=== PATIENT | female | born 1955 | race Caucasian/White ===

== ENCOUNTER 2023-05-25 15:05 | Outpatient (RCR) | payer MEDICARE, SELFPAY | END 2023-05-25 23:59 | disposition home or self-care (01) | LOC: RPT 15:05 | PROVIDERS: ATTENDING PHYSICIAN Physical Medicine & Rehabilitation | DX: M53.3 Sacrococcygeal disorders, not elsewhere classified (principal); M54.16 Radiculopathy, lumbar region; M48.061 Spinal stenosis, lumbar region without neurogenic claudication; M47.816 Spondylosis without myelopathy or radiculopathy, lumbar region; Z73.6 Limitation of activities due to disability; R26.2 Difficulty in walking, not elsewhere classified; M62.81 Muscle weakness (generalized) | CPT/HCPCS: 97110 ==

== ENCOUNTER → 2023-05-26 13:43 | Outpatient (REF) | payer MEDICARE, SELFPAY ==
[2023-05-26 14:35] LABS: % Basophils 0.7 % (0-2); % Eosinophils 0.7 % (0-6); % Immature Granulocytes 0.3 % (0-0.5); % Lymphocytes 18.2 % (20.5-51.1); % Monocytes 5.1 % (1.7-9.3); Absolute Basophils 0.1 10^3/uL (0-0.2); Absolute Eosinophils 0.1 10^3/uL (0-0.7); Absolute Lymphocytes 1.2 10^3/uL (1.2-3.4); Absolute Monocytes 0.3 10^3/uL (0.1-0.6); Hematocrit 32.2 % (37.0-47.0); Hemoglobin 10.8 g/dL (12.0-16.0); Mean Corp Hgb Conc. 33.5 g/dL (33.0-37.0); Mean Corpuscular Hgb 31.1 pg (27.0-31.0); Mean Corpuscular Volume 92.8 fL (81.0-99.0); Mean Platelet Volume 11.1 fL (7.4-10.4); Nucleated Red Blood Cells % 0 %; Platelet Count 245 10^3/uL (130-400); Red Blood Cell Count 3.47 10^6/uL (4.20-5.40); Red Cell Dist. Width 14.5 % (11.5-14.5); White Blood Cell Count 6.7 10^3/uL (4.8-10.8)
[2023-05-26 15:08] LABS: ALT (SGPT) 26 U/L (0-35); AST (SGOT) 18 U/L (14-36); Albumin 3.5 g/dl (3.5-5.0); Alkaline Phosphatase 74 U/L (38-126); Blood Urea Nitrogen 15 mg/dl (7-17); Calcium 8.7 mg/dl (8.4-10.2); Carbon Dioxide 29 mmol/L (22-30); Chloride 97 mmol/L (98-107); Glucose 96 mg/dl (70-99); Potassium 3.8 mmol/L (3.5-5.1); Sodium 133 mmol/L (135-145); Total Bilirubin 0.7 mg/dl (0.2-1.3); Total Protein 5.7 g/dl (6.3-8.2); eGFR > 60.00
== END ==
LOC: REG 13:43
PROVIDERS: ATTENDING PHYSICIAN Internal Medicine Hematology & Oncology; FAMILY PHYSICIAN Family Medicine
DX: C50.811 Malignant neoplasm of overlapping sites of right female breast (principal); C79.89 Secondary malignant neoplasm of other specified sites; G89.3 Neoplasm related pain (acute) (chronic)
CPT/HCPCS: 36415; 80053; 85025

== ENCOUNTER → 2023-05-28 13:55 | Outpatient (REF) | payer MEDICARE, SELFPAY ==
[2023-05-28 15:41] LABS: Iron 37 ug/dl (37-170)
[2023-05-28 15:50] LABS: Percent Saturation 12 % (20-50); Total Iron Binding Capacity 306 ug/dl (265-497)
[2023-05-28 16:18] LABS: Ferritin 61.1 ng/ml (11.1-264.0)
== END ==
LOC: OIDL 13:55
PROVIDERS: ATTENDING PHYSICIAN Internal Medicine Hematology & Oncology
DX: C50.811 Malignant neoplasm of overlapping sites of right female breast (principal)
CPT/HCPCS: 82728; 83540; 83550

== ENCOUNTER → 2023-06-02 11:24 | Outpatient (REF) | payer MEDICARE, SELFPAY ==
[2023-06-02 12:28] LABS: Hematocrit 30.2 % (37.0-47.0); Hemoglobin 9.9 g/dL (12.0-16.0); Mean Corp Hgb Conc. 32.8 g/dL (33.0-37.0); Mean Corpuscular Hgb 31.8 pg (27.0-31.0); Mean Corpuscular Volume 97.1 fL (81.0-99.0); Mean Platelet Volume 11.3 fL (7.4-10.4); Nucleated Red Blood Cells % 0 %; Platelet Count 230 10^3/uL (130-400); Red Blood Cell Count 3.11 10^6/uL (4.20-5.40); Red Cell Dist. Width 14.7 % (11.5-14.5); White Blood Cell Count 21.1 10^3/uL (4.8-10.8)
[2023-06-02 13:13] LABS: ALT (SGPT) 17 U/L (0-35); AST (SGOT) 15 U/L (14-36); Albumin 3.5 g/dl (3.5-5.0); Alkaline Phosphatase 101 U/L (38-126); Blood Urea Nitrogen 12 mg/dl (7-17); Calcium 8.4 mg/dl (8.4-10.2); Carbon Dioxide 24 mmol/L (22-30); Chloride 103 mmol/L (98-107); Glucose 121 mg/dl (70-99); Potassium 3.7 mmol/L (3.5-5.1); Sodium 134 mmol/L (135-145); Total Bilirubin 0.6 mg/dl (0.2-1.3); Total Protein 5.6 g/dl (6.3-8.2); eGFR > 60.00
[2023-06-02 13:51] LABS: Band Neutrophils 16 % (0-3); Lymphocytes 4 % (20-51); Monocytes 1 % (2-9); Normal RBC Morphology Yes; Platelets Checked Yes; Segmented Neutrophils 79 % (42-75); Total Cells Counted 100
[2023-06-02 13:59] LABS: Toxic Granulation Moderate
== END ==
LOC: REG 11:24
PROVIDERS: ATTENDING PHYSICIAN Internal Medicine Hematology & Oncology; FAMILY PHYSICIAN Family Medicine
DX: C50.811 Malignant neoplasm of overlapping sites of right female breast (principal); C79.89 Secondary malignant neoplasm of other specified sites; G89.3 Neoplasm related pain (acute) (chronic)
CPT/HCPCS: 36415; 80053; 85025

== ENCOUNTER → 2023-06-10 15:26 | Outpatient (REF) | payer MEDICARE, SELFPAY ==
[2023-06-10 11:15] LABS: % Basophils 0.8 % (0-2); % Eosinophils 0.9 % (0-6); % Immature Granulocytes 0.3 % (0-0.5); % Lymphocytes 10.8 % (20.5-51.1); % Monocytes 6.5 % (1.7-9.3); % Neutrophils 80.7 % (42.2-75.2); Absolute Basophils 0.1 10^3/uL (0-0.2); Absolute Eosinophils 0.1 10^3/uL (0-0.7); Absolute Lymphocytes 0.7 10^3/uL (1.2-3.4); Absolute Monocytes 0.4 10^3/uL (0.1-0.6); Absolute Neutrophils 5.4 10^3/uL (1.4-6.5); Hemoglobin 11.1 g/dL (12.0-16.0); Mean Corp Hgb Conc. 32.6 g/dL (33.0-37.0); Mean Corpuscular Hgb 31.4 pg (27.0-31.0); Mean Corpuscular Volume 96.3 fL (81.0-99.0); Mean Platelet Volume 10.9 fL (7.4-10.4); Platelet Count 196 10^3/uL (130-400); Red Blood Cell Count 3.53 10^6/uL (4.20-5.40); Red Cell Dist. Width 14.9 % (11.5-14.5); White Blood Cell Count 6.7 10^3/uL (4.8-10.8)
[2023-06-10 11:59] LABS: ALT (SGPT) 16 U/L (0-35); AST (SGOT) 16 U/L (14-36); Albumin 3.7 g/dl (3.5-5.0); Alkaline Phosphatase 103 U/L (38-126); Blood Urea Nitrogen 8 mg/dl (7-17); Calcium 8.7 mg/dl (8.4-10.2); Carbon Dioxide 26 mmol/L (22-30); Chloride 103 mmol/L (98-107); Glucose 123 mg/dl (70-99); Sodium 134 mmol/L (135-145); Total Bilirubin 0.6 mg/dl (0.2-1.3); Total Protein 5.8 g/dl (6.3-8.2); eGFR > 60.00
[2023-06-11 10:53] LABS: Vitamin D, 25-OH*** 59.4 ng/mL (30-80)
== END ==
LOC: OIDL 15:26
PROVIDERS: ATTENDING PHYSICIAN Nurse Practitioner Adult Health
DX: C50.811 Malignant neoplasm of overlapping sites of right female breast (principal)
CPT/HCPCS: 80053; 82306; 85025

== ENCOUNTER → 2023-06-15 13:46 | Outpatient (REF) | payer MEDICARE, SELFPAY ==
[2023-06-15 14:35] LABS: % Basophils 0.6 % (0-2); % Eosinophils 1.5 % (0-6); % Immature Granulocytes 0.2 % (0-0.5); % Lymphocytes 16.1 % (20.5-51.1); % Monocytes 4.3 % (1.7-9.3); % Neutrophils 77.3 % (42.2-75.2); Absolute Eosinophils 0.1 10^3/uL (0-0.7); Absolute Lymphocytes 0.9 10^3/uL (1.2-3.4); Absolute Monocytes 0.2 10^3/uL (0.1-0.6); Absolute Neutrophils 4.1 10^3/uL (1.4-6.5); Hematocrit 31.9 % (37.0-47.0); Hemoglobin 10.7 g/dL (12.0-16.0); Mean Corp Hgb Conc. 33.5 g/dL (33.0-37.0); Mean Corpuscular Hgb 31.3 pg (27.0-31.0); Mean Corpuscular Volume 93.3 fL (81.0-99.0); Mean Platelet Volume 10.9 fL (7.4-10.4); Nucleated Red Blood Cells % 0 %; Platelet Count 199 10^3/uL (130-400); Red Blood Cell Count 3.42 10^6/uL (4.20-5.40); Red Cell Dist. Width 14.6 % (11.5-14.5); White Blood Cell Count 5.3 10^3/uL (4.8-10.8)
[2023-06-15 14:55] LABS: ALT (SGPT) 15 U/L (0-35); AST (SGOT) 14 U/L (14-36); Albumin 3.4 g/dl (3.5-5.0); Alkaline Phosphatase 73 U/L (38-126); Blood Urea Nitrogen 15 mg/dl (7-17); Calcium 8.9 mg/dl (8.4-10.2); Carbon Dioxide 29 mmol/L (22-30); Chloride 98 mmol/L (98-107); Glucose 133 mg/dl (70-99); Potassium 3.7 mmol/L (3.5-5.1); Sodium 135 mmol/L (135-145); Total Bilirubin 0.6 mg/dl (0.2-1.3); Total Protein 5.5 g/dl (6.3-8.2); eGFR > 60.00
== END ==
LOC: REG 13:46
PROVIDERS: ATTENDING PHYSICIAN Internal Medicine Hematology & Oncology
DX: C50.811 Malignant neoplasm of overlapping sites of right female breast (principal); C79.89 Secondary malignant neoplasm of other specified sites; G89.3 Neoplasm related pain (acute) (chronic)
CPT/HCPCS: 36415; 80053; 85025

== ENCOUNTER 2023-06-18 15:43 | Outpatient (RCR) | payer MEDICARE, SELFPAY ==
[2023-06-18 08:44] LABS: % Eosinophils 1.6 % (0-6); % Immature Granulocytes 0.5 % (0-0.5); % Monocytes 14.1 % (1.7-9.3); % Neutrophils 64.8 % (42.2-75.2); Absolute Eosinophils 0.1 10^3/uL (0-0.7); Absolute Lymphocytes 0.7 10^3/uL (1.2-3.4); Absolute Monocytes 0.5 10^3/uL (0.1-0.6); Absolute Neutrophils 2.5 10^3/uL (1.4-6.5); Hematocrit 30.5 % (37.0-47.0); Hemoglobin 10.3 g/dL (12.0-16.0); Mean Corp Hgb Conc. 33.8 g/dL (33.0-37.0); Mean Corpuscular Hgb 31.6 pg (27.0-31.0); Mean Corpuscular Volume 93.6 fL (81.0-99.0); Mean Platelet Volume 11.1 fL (7.4-10.4); Nucleated Red Blood Cells % 0 %; Platelet Count 227 10^3/uL (130-400); Red Blood Cell Count 3.26 10^6/uL (4.20-5.40); Red Cell Dist. Width 14.6 % (11.5-14.5); White Blood Cell Count 3.8 10^3/uL (4.8-10.8)
[2023-06-18 09:38] LABS: Iron 70 ug/dl (37-170); Phosphorus 3.9 mg/dl (2.5-4.5)
[2023-06-18 09:47] LABS: Percent Saturation 23 % (20-50); Total Iron Binding Capacity 298 ug/dl (265-497)
== END 2023-06-24 23:59 | disposition home or self-care (01) ==
LOC: OID 15:43
PROVIDERS: ATTENDING PHYSICIAN Nurse Practitioner Adult Health
DX: C50.811 Malignant neoplasm of overlapping sites of right female breast (principal)
CPT/HCPCS: 82728; 83540; 83550; 84100; 85025

== ENCOUNTER → 2023-06-23 14:31 | Outpatient (REF) | payer MEDICARE, SELFPAY ==
[2023-06-23 15:19] LABS: Hematocrit 32.2 % (37.0-47.0); Hemoglobin 10.6 g/dL (12.0-16.0); Mean Corp Hgb Conc. 32.9 g/dL (33.0-37.0); Mean Corpuscular Hgb 31.5 pg (27.0-31.0); Mean Corpuscular Volume 95.8 fL (81.0-99.0); Mean Platelet Volume 11.1 fL (7.4-10.4); Nucleated Red Blood Cells % 0 %; Platelet Count 224 10^3/uL (130-400); Red Blood Cell Count 3.36 10^6/uL (4.20-5.40); White Blood Cell Count 21.8 10^3/uL (4.8-10.8)
[2023-06-23 15:34] LABS: ALT (SGPT) 16 U/L (0-35); AST (SGOT) 15 U/L (14-36); Albumin 3.5 g/dl (3.5-5.0); Alkaline Phosphatase 95 U/L (38-126); Blood Urea Nitrogen 10 mg/dl (7-17); Calcium 8.8 mg/dl (8.4-10.2); Carbon Dioxide 27 mmol/L (22-30); Chloride 100 mmol/L (98-107); Glucose 122 mg/dl (70-99); Potassium 3.5 mmol/L (3.5-5.1); Sodium 137 mmol/L (135-145); Total Bilirubin 0.6 mg/dl (0.2-1.3); Total Protein 5.9 g/dl (6.3-8.2); eGFR > 60.00
[2023-06-23 16:07] LABS: Absolute Neutrophils -Man Diff 18.9 10^3/uL (1.4-6.5); Band Neutrophils 3 % (0-3); Lymphocytes 5 % (20-51); Metamyelocytes 2 % (-); Monocytes 5 % (2-9); Myelocytes 1 % (-); Segmented Neutrophils 84 % (42-75)
[2023-06-23 16:08] LABS: Platelets Checked Yes
[2023-06-23 16:09] LABS: Normal RBC Morphology Yes; Total Cells Counted 100
== END ==
LOC: REG 14:31
PROVIDERS: ATTENDING PHYSICIAN Internal Medicine Hematology & Oncology; FAMILY PHYSICIAN Family Medicine
DX: C79.89 Secondary malignant neoplasm of other specified sites (principal); G89.3 Neoplasm related pain (acute) (chronic); C50.811 Malignant neoplasm of overlapping sites of right female breast
CPT/HCPCS: 36415; 80053; 85025

== ENCOUNTER → 2023-06-23 15:52 | Outpatient (REF) | payer MEDICARE, SELFPAY | LOC: PAVMRI 15:52 | PROVIDERS: ATTENDING PHYSICIAN Physical Medicine & Rehabilitation; FAMILY PHYSICIAN Family Medicine | DX: M54.16 Radiculopathy, lumbar region (principal) | CPT/HCPCS: 72148 ==

== ENCOUNTER 2023-06-29 10:46 | Outpatient (RCR) | payer MEDICARE, SELFPAY ==
[2023-06-29 10:06] LABS: % Basophils 0.3 % (0-2); % Eosinophils 0.4 % (0-6); % Immature Granulocytes 0.7 % (0-0.5); % Monocytes 8.3 % (1.7-9.3); % Neutrophils 82.3 % (42.2-75.2); Absolute Immature Granulocytes 0.1 10^3/uL (0-0.05); Absolute Lymphocytes 0.9 10^3/uL (1.2-3.4); Absolute Monocytes 0.9 10^3/uL (0.1-0.6); Absolute Neutrophils 8.9 10^3/uL (1.4-6.5); Hematocrit 32.1 % (37.0-47.0); Hemoglobin 10.5 g/dL (12.0-16.0); Mean Corp Hgb Conc. 32.7 g/dL (33.0-37.0); Mean Corpuscular Volume 97.9 fL (81.0-99.0); Mean Platelet Volume 10.6 fL (7.4-10.4); Platelet Count 172 10^3/uL (130-400); Red Blood Cell Count 3.28 10^6/uL (4.20-5.40); Red Cell Dist. Width 15.8 % (11.5-14.5); White Blood Cell Count 10.8 10^3/uL (4.8-10.8)
[2023-06-29 11:09] LABS: ALT (SGPT) 19 U/L (0-35); AST (SGOT) 16 U/L (14-36); Albumin 3.5 g/dl (3.5-5.0); Alkaline Phosphatase 110 U/L (38-126); Blood Urea Nitrogen 9 mg/dl (7-17); Calcium 8.5 mg/dl (8.4-10.2); Carbon Dioxide 28 mmol/L (22-30); Chloride 101 mmol/L (98-107); Glucose 123 mg/dl (70-99); Potassium 3.8 mmol/L (3.5-5.1); Sodium 133 mmol/L (135-145); Total Bilirubin 0.4 mg/dl (0.2-1.3); Total Protein 5.6 g/dl (6.3-8.2); eGFR > 60.00
== END 2023-07-25 23:59 | disposition home or self-care (01) ==
LOC: OID 10:46
PROVIDERS: ATTENDING PHYSICIAN Nurse Practitioner Adult Health
DX: C50.811 Malignant neoplasm of overlapping sites of right female breast (principal)
CPT/HCPCS: 80053; 85025

== ENCOUNTER → 2023-07-07 13:43 | Outpatient (REF) | payer MEDICARE, SELFPAY ==
[2023-07-07 14:26] LABS: % Basophils 0.6 % (0-2); % Eosinophils 1.6 % (0-6); % Immature Granulocytes 0.4 % (0-0.5); % Lymphocytes 15.9 % (20.5-51.1); % Monocytes 4.7 % (1.7-9.3); % Neutrophils 76.8 % (42.2-75.2); Absolute Eosinophils 0.1 10^3/uL (0-0.7); Absolute Lymphocytes 0.8 10^3/uL (1.2-3.4); Absolute Monocytes 0.2 10^3/uL (0.1-0.6); Hemoglobin 10.7 g/dL (12.0-16.0); Mean Corp Hgb Conc. 33.4 g/dL (33.0-37.0); Mean Corpuscular Hgb 31.7 pg (27.0-31.0); Mean Corpuscular Volume 94.7 fL (81.0-99.0); Mean Platelet Volume 10.9 fL (7.4-10.4); Nucleated Red Blood Cells % 0 %; Platelet Count 195 10^3/uL (130-400); Red Blood Cell Count 3.38 10^6/uL (4.20-5.40); Red Cell Dist. Width 15.7 % (11.5-14.5); White Blood Cell Count 5.2 10^3/uL (4.8-10.8)
[2023-07-07 14:38] LABS: ALT (SGPT) 16 U/L (0-35); AST (SGOT) 16 U/L (14-36); Albumin 3.7 g/dl (3.5-5.0); Alkaline Phosphatase 77 U/L (38-126); Blood Urea Nitrogen 12 mg/dl (7-17); Calcium 8.4 mg/dl (8.4-10.2); Carbon Dioxide 27 mmol/L (22-30); Chloride 104 mmol/L (98-107); Glucose 131 mg/dl (70-99); Potassium 3.9 mmol/L (3.5-5.1); Sodium 135 mmol/L (135-145); Total Bilirubin 0.6 mg/dl (0.2-1.3); Total Protein 5.8 g/dl (6.3-8.2); eGFR > 60.00
== END ==
LOC: REG 13:43
PROVIDERS: ATTENDING PHYSICIAN Internal Medicine Hematology & Oncology; FAMILY PHYSICIAN Family Medicine
DX: C50.811 Malignant neoplasm of overlapping sites of right female breast (principal); C79.89 Secondary malignant neoplasm of other specified sites; G89.3 Neoplasm related pain (acute) (chronic)
CPT/HCPCS: 36415; 80053; 85025

== ENCOUNTER 2023-07-09 18:39 | Emergency (ER) | payer MEDICARE, SELFPAY ==
[2023-07-09 18:47] VITALS: BP 179/97
[2023-07-09 21:33] LABS: Glucose - Point of Care 172 mg/dl (70-99)
[2023-07-09 21:34] VITALS: BP 169/87
[2023-07-09 22:00] VITALS: BP 160/87
[2023-07-09 22:06] VITALS: BMI 32.6
--- NOTE | 2023-07-09 22:22 | ED.GENMED ---
History of Present Illness
General
Chief Complaint: Blood Pressure Problem
Source: patient
Time Seen by Provider: 07/09/23 21:27
Travel History
Have you had any contact with someone who has COVID-19?: No
Do you have any symptoms of coronavirus? Fever > 100 degrees, chills, cough, shortness of breath, sore throat, loss of taste or smell, muscle aches, or headache?: No
History of Present Illness
History of Present Illness:
67-year-old female with past medical history of hypertension and hyperlipidemia, GERD, diabetes, currently being treated for breast cancer with chemotherapy (last treatment was earlier today) stating that few hours after getting chemo she started to
feel very jittery, headache, chest discomfort and stiffness in her bilateral upper and lower extremities. Patient was concerned because her blood pressure was a little bit elevated at chemotherapy today and when she took her blood pressure at home
it was still elevated with a systolic measurement of 160. Patient states symptoms seem to have improved since arrival to the emergency department but she still feels some shaky. Patient denies any fevers, chills, rigors, nausea, vomiting, change
in oral intake or any other concerns.
Past History
Past History
ED Past Medical History: Cancer, GERD, HTN, Hypercholesterolemia and IDDM
ED Past Surgical History: Cholecystectomy, Orthopedic and Other
Social History
Tobacco: Non-smoker
Alcohol: None
Drug: None
Personal: Single
Living: with family
Review of Systems
Review of Systems
All Other Systems: ROS reviewed and negative except as documented in HPI and ROS
Phy Exam
Physical Exam
Physical Exam:
GENERAL: Alert , in no apparent distress, somewhat anxious
EYE: clear conjunctiva b/l
HEAD: NCAT
ENT: o/p clr, mmm.
CARDIAC: Regular rate and rhythm .
LUNGS: Clear breath sounds bilaterally, no acute respiratory distress, no wheezes/rales/rhonchi
ABDOMEN: Soft, without focal tenderness, no r/g, no cvat
NEUROLOGICAL: Alert and oriented
SKIN: Warm and dry, skin intact.
MUSCULOSKELETAL: No edema, well perfused.
PSYCH: Normal and appropriate interaction.
Scores
Heart Failure Risk
Heart Failure Risk Score: Not Applicable
Heart Score for Chest Pain Patients
STEMI patient?: Not applicable
Withdrawal Assessment of Alcohol
Withdrawal Assessment Completed?: Not applicable
Course
Orders/Labs/Results
Orders:
Orders
07/09/23 18:50
Electrocardiogram (*1) Urgent
Reason for Study: Hypertension, Benign
CT Head W/o Iv Contrast Urgent
Comment:
Reason For Exam: headache
EKG- Treatment ONCE
07/09/23 22:16
Complete Blood Count/With Diff Urgent
Comprehensive Metabolic Panel Urgent
Troponin I Urgent
Abnormal Lab Results
07/09/23 07/09/23
21:32 22:16
WBC 2.8 L 10^3/uL
(4.8-10.8)
RBC 3.36 L 10^6/uL
(4.20-5.40)
Hgb 10.6 L g/dL
(12.0-16.0)
Hct 31.2 L %
(37.0-47.0)
MCH 31.5 H pg
(27.0-31.0)
RDW 15.0 H %
(11.5-14.5)
MPV 10.6 H fL
(7.4-10.4)
Absolute Lymphs (auto) 0.3 L 10^3/uL
(1.2-3.4)
Absolute Monos (auto) 0.0 L 10^3/uL
(0.1-0.6)
Immature Gran % 1.1 H %
(0-0.5)
Neutrophils % 86.1 H %
(42.2-75.2)
Lymphocytes % 11.3 L %
(20.5-51.1)
Monocytes % 1.1 L %
(1.7-9.3)
Sodium 132 L mmol/L
(135-145)
Creatinine 0.4 L mg/dL
(0.6-1.0)
Glucose 184 H mg/dl
(70-99)
Total Protein 6.2 L g/dl
(6.3-8.2)
POC Glucose 172 H mg/dl
(70-99)
07/09/23 22:16
07/09/23 22:16
Vital Signs
Initial and Last Documented VS:
Initial Vital Signs
Temp Pulse Resp BP Pulse Ox
98.1 F 92 20 179/97 99
07/09/23 18:47 07/09/23 18:47 07/09/23 18:47 07/09/23 18:47 07/09/23 18:47
Last Documented Vital Signs
Temp Pulse Resp BP Pulse Ox
98.1 F 73 15 160/87 97
07/09/23 18:47 07/09/23 22:00 07/09/23 22:00 07/09/23 22:00 07/09/23 22:08
MDM/Problems Addressed
Differential Diagnosis Includes:
Chemotherapy side effect, electrolyte disturbance, anxiety, patient not exhibiting any signs of infectious etiology
MDM/Problems Addressed:
67-year-old female presenting to the emergency department for evaluation after she noticed her blood pressure was slightly more elevated than usual today. On arrival to the emergency department patient still has a mildly elevated blood pressure
however I am less suspicious for an malignant hypertension. Will check labs, CT of the head, EKG. Ultimately I suspect patient's workup will be unremarkable and she can continue her management as an outpatient. Patient will follow-up with her
primary care physician who mostly manages her blood pressure. She also follows with expediter service order, Dr. Fu.
*Radiology
Radiology exam reviewed: radiology read reviewed
*Pulse Oximetry
Patient hypoxic: no
*EKG
Comparison EKG: no comparison EKG present
Heart Rate: 76
Rate: normal
Rhythm: sinus arrhythmia
[place]: normal axis
Ischemia: no ischemia
*Rope Cleaner Interpretation
Rate: normal
Rhythm: sinus
*Critical Care Note
Total Time (30-74mins, 75-104mins- exclusive of procedures): Not Applicable
Patient Management
Escalation/DeEscalation of care consider admission/obs:
Patient's labs all unremarkable. Her leukopenia is expected given her recent chemotherapy today. I counseled patient to try and monitor her blood pressure twice daily and keep a log of this. She will contact her primary care physician on Wednesday
for a follow-up visit. Aware of return precautions to the emergency department.
ED Attending Note
-
Portions of this chart may have been created with voice recognition software.� Occasional wrong word or��sound alike� substitutions may have occurred due to the inherent limitations of voice recognition software.
Discharge Plan
Departure
Patient Disposition: Home (Routine Discharge)
Date of Disposition: 07/09/23
Time of Disposition: 22:49
Patient with high blood pressure during this ER visit?: Yes
Discharge Problem:
Elevated blood pressure reading
Instructions: High Blood Pressure (DC)
Prescriptions:
No Action
latanoprost 0.005 % Drops
1 drp OPHTHALMIC (EYE) DAILY
Rx Instructions:
both eyes
metformin 500 mg Tablet
500 mg PO BID
atorvastatin 20 mg Tablet
20 mg PO DAILY
carvedilol 12.5 mg Tablet
12.5 mg PO BID
lamotrigine 200 mg Tablet
200 mg PO BID
famotidine 40 mg Tablet
40 mg PO BID
valsartan 80 mg Tablet
80 mg PO DAILY
allopurinol 100 mg Tablet
100 mg PO DAILY
aspirin 81 mg Tablet,Delayed Release (Dr/Ec)
81 mg PO DAILY
ondansetron 8 mg Tablet,Disintegrating
8 mg PO Q8H PRN (Reason: nausea)
trazodone 100 mg Tablet
100 mg PO HS
benzonatate 100 mg Capsule
100 mg PO TID PRN (Reason: dry cough)
pantoprazole 40 mg Tablet,Delayed Release (Dr/Ec)
40 mg PO BID
montelukast 10 mg Tablet
10 mg PO HS
estradiol 0.01 % (0.1 mg/gram) Cream
1 g VAGINAL QWEEK
Neulasta 6 mg/0.6 mL Syringe
6 mg SC ONCE
Rx Instructions:
Wednesday after chemo
aripiprazole [Abilify] 20 mg Tablet
20 mg PO HS
duloxetine 60 mg Capsule,Delayed Release(Dr/Ec)
60 mg PO BID
Centrum Silver 0.4 mg-300 mcg- 250 mcg Tablet
1 tab PO DAILY
pregabalin 75 mg Capsule
75 mg PO BID
cholecalciferol (vitamin D3) [Vitamin D3] 25 mcg (1,000 unit) Tablet
25 mcg PO DAILY
melatonin 10 mg Tablet
10 mg PO HS
sacituzumab govitecan-hziy 180 mg Recon Soln
180 mg IV
Rx Instructions:
Fridays for 2 weeks then off 1 week
Referrals:
Delroy Lowe Jr., [Family Provider] -
Interventions
Interventions:
*Risk Screen - Suicide Last Done: 07/09/23 18:47
*General Assessment Last Done: 07/09/23 18:47
*Neglect/Abuse Screening Last Done: 07/09/23 22:07
ED- Fall Risk Assessment Last Done: 07/09/23 22:08
*ED COVID-19 Vaccine History Last Done: 07/09/23 22:07
ED- Cardiac Assessment Last Done: 07/09/23 22:08
ED- Neurological Assessment Last Done: 07/09/23 22:08
ED- Pulmonary Assessment Last Done: 07/09/23 22:08
[2023-07-09 22:24] LABS: % Basophils 0.4 % (0-2); % Immature Granulocytes 1.1 % (0-0.5); % Lymphocytes 11.3 % (20.5-51.1); % Monocytes 1.1 % (1.7-9.3); % Neutrophils 86.1 % (42.2-75.2); Absolute Lymphocytes 0.3 10^3/uL (1.2-3.4); Absolute Neutrophils 2.4 10^3/uL (1.4-6.5); Hematocrit 31.2 % (37.0-47.0); Hemoglobin 10.6 g/dL (12.0-16.0); Mean Corpuscular Hgb 31.5 pg (27.0-31.0); Mean Corpuscular Volume 92.9 fL (81.0-99.0); Mean Platelet Volume 10.6 fL (7.4-10.4); Nucleated Red Blood Cells % 0 %; Platelet Count 208 10^3/uL (130-400); Red Blood Cell Count 3.36 10^6/uL (4.20-5.40); White Blood Cell Count 2.8 10^3/uL (4.8-10.8)
--- NOTE | 2023-07-09 22:37 | VATNOTE ---
pt not sure if port is power injectable ; pt did have a 'purple' card re. her port but doesn't have it now. Port placed at facility in [place], [place]. This is pt's first time here in ER so no CXR avail. to see if power injectable port on
film.
[2023-07-09 22:39] LABS: ALT (SGPT) 19 U/L (0-35); AST (SGOT) 18 U/L (14-36); Albumin 3.9 g/dl (3.5-5.0); Alkaline Phosphatase 79 U/L (38-126); Blood Urea Nitrogen 12 mg/dl (7-17); Calcium 8.8 mg/dl (8.4-10.2); Carbon Dioxide 23 mmol/L (22-30); Chloride 102 mmol/L (98-107); Estimated Creatinine Clearance 106 ml/min; Glucose 184 mg/dl (70-99); Potassium 3.7 mmol/L (3.5-5.1); Sodium 132 mmol/L (135-145); Total Bilirubin 1.1 mg/dl (0.2-1.3); Total Protein 6.2 g/dl (6.3-8.2); eGFR > 60.00
[2023-07-09 22:47] LABS: Troponin I < 0.012 ng/ml
== END 2023-07-09 23:56 | disposition home or self-care (01) ==
LOC: EMR 18:39
PROVIDERS: Emergency Medicine; EMERGENCY PHYSICIAN Emergency Medicine; FAMILY PHYSICIAN Family Medicine
DX: I10 Essential (primary) hypertension (principal); D72.819 Decreased white blood cell count, unspecified
CPT/HCPCS: 99285; 70450; 80053; 82962; 84484; 85025; 93005

== ENCOUNTER → 2023-07-13 13:36 | Outpatient (REF) | payer MEDICARE, SELFPAY ==
[2023-07-13 15:31] LABS: % Basophils 0.5 % (0-2); % Eosinophils 0.3 % (0-6); % Immature Granulocytes 11.9 % (0-0.5); % Lymphocytes 3.9 % (20.5-51.1); % Monocytes 2.4 % (1.7-9.3); Absolute Basophils 0.1 10^3/uL (0-0.2); Absolute Eosinophils 0.1 10^3/uL (0-0.7); Absolute Immature Granulocytes 2.7 10^3/uL (0-0.05); Absolute Lymphocytes 0.9 10^3/uL (1.2-3.4); Absolute Monocytes 0.6 10^3/uL (0.1-0.6); Absolute Neutrophils 18.7 10^3/uL (1.4-6.5); Hematocrit 32.9 % (37.0-47.0); Hemoglobin 10.9 g/dL (12.0-16.0); Mean Corp Hgb Conc. 33.1 g/dL (33.0-37.0); Mean Corpuscular Hgb 32.4 pg (27.0-31.0); Mean Corpuscular Volume 97.9 fL (81.0-99.0); Mean Platelet Volume 11.4 fL (7.4-10.4); Nucleated Red Blood Cells % 0 %; Platelet Count 236 10^3/uL (130-400); Red Blood Cell Count 3.36 10^6/uL (4.20-5.40); Red Cell Dist. Width 15.6 % (11.5-14.5); White Blood Cell Count 23.1 10^3/uL (4.8-10.8)
[2023-07-13 15:36] LABS: AST (SGOT) 15 U/L (14-36); Albumin 3.9 g/dl (3.5-5.0); Carbon Dioxide 26 mmol/L (22-30); Chloride 103 mmol/L (98-107); Total Bilirubin 0.6 mg/dl (0.2-1.3); eGFR > 60.00
[2023-07-13 15:58] LABS: ALT (SGPT) 17 U/L (0-35); Alkaline Phosphatase 88 U/L (38-126); Blood Urea Nitrogen 10 mg/dl (7-17); Calcium 8.9 mg/dl (8.4-10.2); Glucose 131 mg/dl (70-99); Potassium 3.5 mmol/L (3.5-5.1); Sodium 134 mmol/L (135-145); Total Protein 6.1 g/dl (6.3-8.2)
== END ==
LOC: REG 13:36
PROVIDERS: ATTENDING PHYSICIAN Internal Medicine Hematology & Oncology; FAMILY PHYSICIAN Family Medicine
DX: C50.811 Malignant neoplasm of overlapping sites of right female breast (principal); C79.89 Secondary malignant neoplasm of other specified sites; G89.3 Neoplasm related pain (acute) (chronic)
CPT/HCPCS: 36415; 80053; 85025

== ENCOUNTER → 2023-07-28 11:43 | Outpatient (REF) | payer MEDICARE, SELFPAY ==
[2023-07-28 11:48] LABS: % Basophils 1.1 % (0-2); % Eosinophils 1.5 % (0-6); % Lymphocytes 15.8 % (20.5-51.1); % Monocytes 13.9 % (1.7-9.3); % Neutrophils 67.7 % (42.2-75.2); Absolute Basophils 0.1 10^3/uL (0-0.2); Absolute Eosinophils 0.1 10^3/uL (0-0.7); Absolute Lymphocytes 0.7 10^3/uL (1.2-3.4); Absolute Monocytes 0.6 10^3/uL (0.1-0.6); Absolute Neutrophils 3.1 10^3/uL (1.4-6.5); Hematocrit 34.5 % (37.0-47.0); Hemoglobin 11.5 g/dL (12.0-16.0); Mean Corp Hgb Conc. 33.3 g/dL (33.0-37.0); Mean Corpuscular Hgb 32.8 pg (27.0-31.0); Mean Corpuscular Volume 98.3 fL (81.0-99.0); Mean Platelet Volume 11.2 fL (7.4-10.4); Platelet Count 168 10^3/uL (130-400); Red Blood Cell Count 3.51 10^6/uL (4.20-5.40); Red Cell Dist. Width 15.4 % (11.5-14.5); White Blood Cell Count 4.6 10^3/uL (4.8-10.8)
[2023-07-28 13:07] LABS: ALT (SGPT) 15 U/L (0-35); AST (SGOT) 15 U/L (14-36); Alkaline Phosphatase 76 U/L (38-126); Blood Urea Nitrogen 10 mg/dl (7-17); Calcium 9.1 mg/dl (8.4-10.2); Carbon Dioxide 25 mmol/L (22-30); Chloride 104 mmol/L (98-107); Glucose 110 mg/dl (70-99); Potassium 3.8 mmol/L (3.5-5.1); Sodium 135 mmol/L (135-145); Total Bilirubin 0.8 mg/dl (0.2-1.3); Total Protein 6.1 g/dl (6.3-8.2); eGFR > 60.00
== END ==
LOC: OIDL 11:43
PROVIDERS: ATTENDING PHYSICIAN Internal Medicine Hematology & Oncology
DX: C50.811 Malignant neoplasm of overlapping sites of right female breast (principal); C79.89 Secondary malignant neoplasm of other specified sites; G89.3 Neoplasm related pain (acute) (chronic); D50.9 Iron deficiency anemia, unspecified
CPT/HCPCS: 80053; 85025

== ENCOUNTER 2023-07-30 11:30 | Outpatient (RCR) | payer MEDICARE, SELFPAY ==
[2023-07-30 09:43] LABS: Iron 91 ug/dl (37-170)
[2023-07-30 09:52] LABS: Percent Saturation 33 % (20-50); Total Iron Binding Capacity 273 ug/dl (265-497)
== END 2023-08-24 23:59 | disposition home or self-care (01) ==
LOC: OID 11:30
PROVIDERS: ATTENDING PHYSICIAN Nurse Practitioner Adult Health
DX: C50.811 Malignant neoplasm of overlapping sites of right female breast (principal)
CPT/HCPCS: 82728; 83540; 83550

== ENCOUNTER → 2023-08-17 10:07 | Outpatient (REF) | payer OTHER, SELFPAY ==
[2023-08-17 11:16] LABS: % Basophils 0.5 % (0-2); % Eosinophils 1.4 % (0-6); % Immature Granulocytes 0.2 % (0-0.5); % Lymphocytes 19.2 % (20.5-51.1); % Monocytes 10.2 % (1.7-9.3); % Neutrophils 68.5 % (42.2-75.2); Absolute Eosinophils 0.1 10^3/uL (0-0.7); Absolute Lymphocytes 0.8 10^3/uL (1.2-3.4); Absolute Monocytes 0.4 10^3/uL (0.1-0.6); Hematocrit 33.7 % (37.0-47.0); Hemoglobin 11.3 g/dL (12.0-16.0); Mean Corp Hgb Conc. 33.5 g/dL (33.0-37.0); Mean Corpuscular Hgb 32.4 pg (27.0-31.0); Mean Corpuscular Volume 96.6 fL (81.0-99.0); Mean Platelet Volume 10.3 fL (7.4-10.4); Nucleated Red Blood Cells % 0 %; Platelet Count 204 10^3/uL (130-400); Red Blood Cell Count 3.49 10^6/uL (4.20-5.40); Red Cell Dist. Width 13.3 % (11.5-14.5); White Blood Cell Count 4.3 10^3/uL (4.8-10.8)
[2023-08-17 12:22] LABS: ALT (SGPT) 17 U/L (0-35); AST (SGOT) 17 U/L (14-36); Albumin 3.8 g/dl (3.5-5.0); Alkaline Phosphatase 82 U/L (38-126); Blood Urea Nitrogen 11 mg/dl (7-17); Calcium 9.1 mg/dl (8.4-10.2); Carbon Dioxide 26 mmol/L (22-30); Chloride 98 mmol/L (98-107); Glucose 119 mg/dl (70-99); Potassium 4.3 mmol/L (3.5-5.1); Sodium 132 mmol/L (135-145); Total Bilirubin 0.6 mg/dl (0.2-1.3); Total Protein 6.1 g/dl (6.3-8.2); eGFR > 60.00
== END ==
LOC: REG 10:07
PROVIDERS: ATTENDING PHYSICIAN Internal Medicine Hematology & Oncology; FAMILY PHYSICIAN Family Medicine
DX: C50.811 Malignant neoplasm of overlapping sites of right female breast (principal); C79.89 Secondary malignant neoplasm of other specified sites; G89.3 Neoplasm related pain (acute) (chronic)
CPT/HCPCS: 36415; 80053; 85025

== ENCOUNTER → 2023-08-24 12:01 | Outpatient (REF) | payer OTHER, SELFPAY ==
[2023-08-24 13:29] LABS: Hematocrit 34.1 % (37.0-47.0); Hemoglobin 11.5 g/dL (12.0-16.0); Mean Corp Hgb Conc. 33.7 g/dL (33.0-37.0); Mean Platelet Volume 10.8 fL (7.4-10.4); Platelet Count 185 10^3/uL (130-400); Red Blood Cell Count 3.59 10^6/uL (4.20-5.40); Red Cell Dist. Width 13.5 % (11.5-14.5); White Blood Cell Count 30.7 10^3/uL (4.8-10.8)
[2023-08-24 13:52] LABS: ALT (SGPT) 22 U/L (0-35); AST (SGOT) 17 U/L (14-36); Albumin 3.8 g/dl (3.5-5.0); Alkaline Phosphatase 78 U/L (38-126); Blood Urea Nitrogen 12 mg/dl (7-17); Carbon Dioxide 26 mmol/L (22-30); Chloride 99 mmol/L (98-107); Glucose 122 mg/dl (70-99); Iron 86 ug/dl (37-170); Potassium 3.5 mmol/L (3.5-5.1); Sodium 132 mmol/L (135-145); Total Bilirubin 0.7 mg/dl (0.2-1.3); eGFR > 60.00
[2023-08-24 14:03] LABS: Percent Saturation 32 % (20-50); Total Iron Binding Capacity 263 ug/dl (265-497)
[2023-08-24 14:13] LABS: Absolute Neutrophils -Man Diff 28.5 10^3/uL (1.4-6.5); Atypical Lymphocytes 1 %; Band Neutrophils 13 % (0-3); Lymphocytes 3 % (20-51); Metamyelocytes 3 % (-); Monocytes 0 % (2-9); Platelets Checked Yes; Segmented Neutrophils 80 % (42-75)
[2023-08-24 14:14] LABS: Anisocytosis Slight; Hypochromasia 1+; Normal RBC Morphology No; Polychromasia 1+; Total Cells Counted 100
== END ==
LOC: REG 12:01
PROVIDERS: ATTENDING PHYSICIAN Internal Medicine Hematology & Oncology; FAMILY PHYSICIAN Family Medicine
DX: C50.811 Malignant neoplasm of overlapping sites of right female breast (principal); C79.89 Secondary malignant neoplasm of other specified sites; G89.3 Neoplasm related pain (acute) (chronic); D50.9 Iron deficiency anemia, unspecified
CPT/HCPCS: 36415; 80053; 82728; 83540; 83550; 85025

== ENCOUNTER → 2023-09-01 10:38 | Outpatient (REF) | payer OTHER, SELFPAY ==
[2023-09-01 12:05] LABS: % Basophils 0.4 % (0-2); % Eosinophils 0.7 % (0-6); % Immature Granulocytes 0.8 % (0-0.5); % Lymphocytes 10.4 % (20.5-51.1); % Monocytes 5.8 % (1.7-9.3); % Neutrophils 81.9 % (42.2-75.2); Absolute Eosinophils 0.1 10^3/uL (0-0.7); Absolute Immature Granulocytes 0.1 10^3/uL (0-0.05); Absolute Lymphocytes 1.1 10^3/uL (1.2-3.4); Absolute Monocytes 0.6 10^3/uL (0.1-0.6); Absolute Neutrophils 8.3 10^3/uL (1.4-6.5); Hematocrit 34.7 % (37.0-47.0); Hemoglobin 11.5 g/dL (12.0-16.0); Mean Corp Hgb Conc. 33.1 g/dL (33.0-37.0); Mean Corpuscular Hgb 32.1 pg (27.0-31.0); Mean Corpuscular Volume 96.9 fL (81.0-99.0); Mean Platelet Volume 11.2 fL (7.4-10.4); Nucleated Red Blood Cells % 0 %; Platelet Count 182 10^3/uL (130-400); Red Blood Cell Count 3.58 10^6/uL (4.20-5.40); Red Cell Dist. Width 14.3 % (11.5-14.5); White Blood Cell Count 10.2 10^3/uL (4.8-10.8)
[2023-09-01 14:10] LABS: ALT (SGPT) 15 U/L (0-35); AST (SGOT) 16 U/L (14-36); Albumin 3.8 g/dl (3.5-5.0); Alkaline Phosphatase 99 U/L (38-126); Blood Urea Nitrogen 10 mg/dl (7-17); Calcium 9.2 mg/dl (8.4-10.2); Carbon Dioxide 23 mmol/L (22-30); Chloride 102 mmol/L (98-107); Glucose 107 mg/dl (70-99); Potassium 3.8 mmol/L (3.5-5.1); Sodium 135 mmol/L (135-145); Total Bilirubin 0.5 mg/dl (0.2-1.3); Total Protein 6.1 g/dl (6.3-8.2); eGFR > 60.00
== END ==
LOC: REG 10:38
PROVIDERS: ATTENDING PHYSICIAN Internal Medicine Hematology & Oncology; FAMILY PHYSICIAN Family Medicine
DX: C50.811 Malignant neoplasm of overlapping sites of right female breast (principal); C79.89 Secondary malignant neoplasm of other specified sites; G89.3 Neoplasm related pain (acute) (chronic)
CPT/HCPCS: 36415; 80053; 85025

== ENCOUNTER → 2023-09-06 09:45 | Outpatient (REF) | payer OTHER, SELFPAY | LOC: RAD 09:45 | PROVIDERS: ATTENDING PHYSICIAN Family Medicine | DX: Z78.0 Asymptomatic menopausal state (principal); Z13.820 Encounter for screening for osteoporosis | CPT/HCPCS: 77080 ==

== ENCOUNTER → 2023-09-07 10:41 | Outpatient (REF) | payer OTHER, SELFPAY ==
[2023-09-07 11:48] LABS: % Basophils 0.6 % (0-2); % Immature Granulocytes 0.3 % (0-0.5); % Lymphocytes 12.5 % (20.5-51.1); % Monocytes 3.2 % (1.7-9.3); % Neutrophils 82.4 % (42.2-75.2); Absolute Eosinophils 0.1 10^3/uL (0-0.7); Absolute Lymphocytes 0.9 10^3/uL (1.2-3.4); Absolute Monocytes 0.2 10^3/uL (0.1-0.6); Hematocrit 33.7 % (37.0-47.0); Hemoglobin 11.4 g/dL (12.0-16.0); Mean Corp Hgb Conc. 33.8 g/dL (33.0-37.0); Mean Corpuscular Hgb 32.2 pg (27.0-31.0); Mean Corpuscular Volume 95.2 fL (81.0-99.0); Mean Platelet Volume 10.5 fL (7.4-10.4); Nucleated Red Blood Cells % 0 %; Platelet Count 197 10^3/uL (130-400); Red Blood Cell Count 3.54 10^6/uL (4.20-5.40); Red Cell Dist. Width 13.9 % (11.5-14.5); White Blood Cell Count 7.2 10^3/uL (4.8-10.8)
[2023-09-07 12:25] LABS: ALT (SGPT) 25 U/L (0-35); AST (SGOT) 16 U/L (14-36); Albumin 3.6 g/dl (3.5-5.0); Alkaline Phosphatase 72 U/L (38-126); Blood Urea Nitrogen 15 mg/dl (7-17); Carbon Dioxide 27 mmol/L (22-30); Chloride 101 mmol/L (98-107); Glucose 100 mg/dl (70-99); Sodium 135 mmol/L (135-145); Total Bilirubin 0.6 mg/dl (0.2-1.3); Total Protein 5.8 g/dl (6.3-8.2); eGFR > 60.00
== END ==
LOC: REG 10:41
PROVIDERS: ATTENDING PHYSICIAN Internal Medicine Hematology & Oncology; FAMILY PHYSICIAN Family Medicine
DX: C50.811 Malignant neoplasm of overlapping sites of right female breast (principal); C79.89 Secondary malignant neoplasm of other specified sites; G89.3 Neoplasm related pain (acute) (chronic)
CPT/HCPCS: 36415; 80053; 85025

== ENCOUNTER → 2023-09-17 07:05 | Outpatient (REF) | payer OTHER, SELFPAY ==
[2023-09-17 07:50] LABS: % Basophils 0.1 % (0-2); % Eosinophils 0.7 % (0-6); % Immature Granulocytes 1.9 % (0-0.5); % Lymphocytes 9.4 % (20.5-51.1); % Monocytes 10.5 % (1.7-9.3); % Neutrophils 77.4 % (42.2-75.2); Absolute Eosinophils 0.1 10^3/uL (0-0.7); Absolute Immature Granulocytes 0.3 10^3/uL (0-0.05); Absolute Lymphocytes 1.5 10^3/uL (1.2-3.4); Absolute Monocytes 1.7 10^3/uL (0.1-0.6); Absolute Neutrophils 12.6 10^3/uL (1.4-6.5); Hematocrit 31.7 % (37.0-47.0); Hemoglobin 10.8 g/dL (12.0-16.0); Mean Corp Hgb Conc. 34.1 g/dL (33.0-37.0); Mean Corpuscular Hgb 32.2 pg (27.0-31.0); Mean Corpuscular Volume 94.6 fL (81.0-99.0); Mean Platelet Volume 10.5 fL (7.4-10.4); Nucleated Red Blood Cells % 0 %; Platelet Count 204 10^3/uL (130-400); Red Blood Cell Count 3.35 10^6/uL (4.20-5.40); Red Cell Dist. Width 14.1 % (11.5-14.5); White Blood Cell Count 16.3 10^3/uL (4.8-10.8)
[2023-09-17 08:18] LABS: ALT (SGPT) 17 U/L (0-35); AST (SGOT) 16 U/L (14-36); Albumin 3.8 g/dl (3.5-5.0); Alkaline Phosphatase 116 U/L (38-126); Blood Urea Nitrogen 10 mg/dl (7-17); Calcium 9.2 mg/dl (8.4-10.2); Carbon Dioxide 27 mmol/L (22-30); Chloride 100 mmol/L (98-107); Glucose 111 mg/dl (70-99); HDL Cholesterol 73 mg/dl; LDL Cholesterol, Calculated 8 mg/dl; Potassium 3.8 mmol/L (3.5-5.1); Sodium 137 mmol/L (135-145); Total Bilirubin 0.4 mg/dl (0.2-1.3); Total Cholesterol 90 mg/dl (50-199); Total Protein 5.9 g/dl (6.3-8.2); Triglyceride 48 mg/dl (10-149); Very Low Density Lipoprotein 9 mg/dl (0-30); eGFR > 60.00
[2023-09-17 08:42] LABS: Glycohemoglobin (HgbA1c) 6.3 % (4.0-5.6)
== END ==
LOC: REG 07:05
PROVIDERS: ATTENDING PHYSICIAN Internal Medicine Hematology & Oncology; FAMILY PHYSICIAN Family Medicine
DX: C50.811 Malignant neoplasm of overlapping sites of right female breast (principal); C79.89 Secondary malignant neoplasm of other specified sites; G89.3 Neoplasm related pain (acute) (chronic); E11.9 Type 2 diabetes mellitus without complications; E78.00 Pure hypercholesterolemia, unspecified; D64.9 Anemia, unspecified
CPT/HCPCS: 36415; 80053; 80061; 82728; 83036; 85025

== ENCOUNTER → 2023-09-28 08:35 | Outpatient (REF) | payer OTHER, SELFPAY ==
[2023-09-28 10:08] LABS: % Basophils 0.7 % (0-2); % Eosinophils 0.7 % (0-6); % Immature Granulocytes 0.5 % (0-0.5); % Lymphocytes 14.9 % (20.5-51.1); % Monocytes 4.7 % (1.7-9.3); % Neutrophils 78.5 % (42.2-75.2); Absolute Lymphocytes 0.9 10^3/uL (1.2-3.4); Absolute Monocytes 0.3 10^3/uL (0.1-0.6); Absolute Neutrophils 4.6 10^3/uL (1.4-6.5); Hematocrit 34.6 % (37.0-47.0); Hemoglobin 11.8 g/dL (12.0-16.0); Mean Corp Hgb Conc. 34.1 g/dL (33.0-37.0); Mean Corpuscular Hgb 32.3 pg (27.0-31.0); Mean Corpuscular Volume 94.8 fL (81.0-99.0); Mean Platelet Volume 10.8 fL (7.4-10.4); Nucleated Red Blood Cells % 0 %; Platelet Count 222 10^3/uL (130-400); Red Blood Cell Count 3.65 10^6/uL (4.20-5.40); Red Cell Dist. Width 14.1 % (11.5-14.5); White Blood Cell Count 5.9 10^3/uL (4.8-10.8)
[2023-09-28 10:15] LABS: ALT (SGPT) 20 U/L (0-35); AST (SGOT) 16 U/L (14-36); Alkaline Phosphatase 80 U/L (38-126); Blood Urea Nitrogen 17 mg/dl (7-17); Carbon Dioxide 30 mmol/L (22-30); Chloride 97 mmol/L (98-107); Glucose 115 mg/dl (70-99); Potassium 3.8 mmol/L (3.5-5.1); Sodium 137 mmol/L (135-145); Total Bilirubin 0.9 mg/dl (0.2-1.3); Total Protein 6.2 g/dl (6.3-8.2); eGFR > 60.00
== END ==
LOC: REG 08:35
PROVIDERS: ATTENDING PHYSICIAN Internal Medicine Cardiovascular Disease; FAMILY PHYSICIAN Family Medicine; REFERRING PHYSICIAN Internal Medicine Hematology & Oncology
DX: I10 Essential (primary) hypertension (principal); E78.2 Mixed hyperlipidemia; G47.33 Obstructive sleep apnea (adult) (pediatric); E11.9 Type 2 diabetes mellitus without complications; Z17.1 Estrogen receptor negative status [ER-]; C50.919 Malignant neoplasm of unspecified site of unspecified female breast; T45.1X5A Adverse effect of antineoplastic and immunosuppressive drugs, initial encounter; R06.09 Other forms of dyspnea; C50.811 Malignant neoplasm of overlapping sites of right female breast; C79.89 Secondary malignant neoplasm of other specified sites; G89.3 Neoplasm related pain (acute) (chronic)
CPT/HCPCS: 36415; 80053; 85025

== ENCOUNTER 2023-10-03 20:45 | Emergency (ER) | payer OTHER, SELFPAY ==
[2023-10-03] VITALS (8 sets, daily range): BP systolic 125–143; BP diastolic 55–73; PULSE 68–76; BMI 33.3
[2023-10-03 21:33] LABS: % Basophils 0.6 % (0-2); % Eosinophils 0.9 % (0-6); % Immature Granulocytes 0.3 % (0-0.5); % Lymphocytes 34.7 % (20.5-51.1); % Neutrophils 52.5 % (42.2-75.2); Absolute Lymphocytes 1.2 10^3/uL (1.2-3.4); Absolute Monocytes 0.4 10^3/uL (0.1-0.6); Absolute Neutrophils 1.8 10^3/uL (1.4-6.5); Hematocrit 29.6 % (37.0-47.0); Hemoglobin 10.4 g/dL (12.0-16.0); Mean Corp Hgb Conc. 35.1 g/dL (33.0-37.0); Mean Corpuscular Hgb 32.6 pg (27.0-31.0); Mean Corpuscular Volume 92.8 fL (81.0-99.0); Mean Platelet Volume 10.1 fL (7.4-10.4); Nucleated Red Blood Cells % 0 %; Platelet Count 245 10^3/uL (130-400); Red Blood Cell Count 3.19 10^6/uL (4.20-5.40); Red Cell Dist. Width 14.3 % (11.5-14.5); White Blood Cell Count 3.4 10^3/uL (4.8-10.8)
[2023-10-03 21:52] LABS: ALT (SGPT) 18 U/L (0-35); AST (SGOT) 16 U/L (14-36); Albumin 3.5 g/dl (3.5-5.0); Alkaline Phosphatase 73 U/L (38-126); Blood Urea Nitrogen 20 mg/dl (7-17); Carbon Dioxide 30 mmol/L (22-30); Chloride 97 mmol/L (98-107); Estimated Creatinine Clearance 107 ml/min; Glucose 111 mg/dl (70-99); Potassium 3.8 mmol/L (3.5-5.1); Sodium 134 mmol/L (135-145); Total Bilirubin 0.7 mg/dl (0.2-1.3); Total Protein 5.5 g/dl (6.3-8.2); eGFR > 60.00
--- NOTE | 2023-10-03 22:47 | ED.GENMED ---
History of Present Illness
<CHESTER Cardona - Last Filed: 10/03/23 23:08>
General
Chief Complaint: Weakness
Source: patient and records
Time Seen by Provider: 10/03/23 22:28
Travel History
Have you had any contact with someone who has COVID-19?: No
Do you have any symptoms of coronavirus? Fever > 100 degrees, chills, cough, shortness of breath, sore throat, loss of taste or smell, muscle aches, or headache?: No
History of Present Illness
History of Present Illness:
67 year old female with hx of HTN, HLD, IDDM, spinal stenosis w/ chronic back pain, breast CA on Trodelvy who presents with intermittent symptoms of fatigue, generalized weakness and sleepiness x1 year, worsened today. Pt takes hydroxyzine 10 mg PO
for anxiety which she has been taking for years. States she becomes sleepy and fatigued after taking hydroxyzine. However, for the past year she noticed these symptoms occur even when she does not take hydroxyzine. She took a dose today at 1230.
Currently, she feels weak, mostly to her legs to the point where she almost unambulatory, and sleepiness. States she feels like she will doze off even by just sitting up. She reports numbness to bilateral lower extremities, which is not new and
attributes this to her diabetes. Additionally, she reports nausea and diarrhea x 24 hours. She just finished a round of Trodelvy 2 days ago. States these symptoms are not unusual for her and will experience nausea and diarrhea from time to time
after chemo. Denies fevers/chills, abdominal pain, vomiting, chest pain, palpitations, SOB, dysuria, hematuria. States she has mentioned her symptoms of sleepiness and weakness to her PCP in the past but they have not treated her for it. She has a
hx of CLAUDIO. She uses a CPAP x 8 months. States it has not really helped her with her sleepiness.
Past History
<CHESTER Cardona - Last Filed: 10/03/23 23:08>
Past History
ED Past Medical History: Cancer, GERD, HTN, Hypercholesterolemia and IDDM
ED Past Surgical History: Cholecystectomy, Orthopedic and Other
Social History
Tobacco: Non-smoker
Alcohol: None
Drug: None
Personal: Single
Living: with family
Review of Systems
<CHESTER Cardona - Last Filed: 10/03/23 23:08>
Review of Systems
Allergies reviewed?: Yes
All Other Systems: ROS reviewed and negative except as documented in HPI and ROS
Constitutional: Reports fatigue and other (sleepiness)
EENT: Reports no symptoms
Respiratory: Reports no symptoms
Cardiac: Reports no symptoms
ABD/GI: Reports nausea and diarrhea
: Reports no symptoms
Musculoskeletal: Reports back pain
Skin: Reports no symptoms
Neurological: Reports numbness (bilateral lower extremities)
Endocrine: Reports no symptoms
Hematologic/Lymphatic: Reports bruising
Psychiatric: Reports no symptoms
Phy Exam
<CHESTER Cardona - Last Filed: 10/03/23 23:08>
General Physical Exam
General Presentation: no apparent distress and other (weak-appearing)
General age: appears stated age
General Skin: warm
General Habitus: obese
General Mental: alert
Cardiovascular Exam
Cardiovascular Exam: regular rate/rhythm, no edema, no gallop, no murmur and normal peripheral pulses
Pulmonary Exam
Pulmonary Exam: lungs clear, no respiratory distress, no rales, no crackles, no rhonchi, no wheezing, no cough and other (port-o-cath to L anterior chest)
Gastrointestinal Exam
Gastrointestinal Exam: normal bowel sounds, non tender, soft, no pulsatile mass and non distended
Neurological Exam
Neurological Exam: alert and oriented x3
Skin Exam
Skin Exam: normal color, warm/dry and other (spots of ecchymoses to bilateral lower extremities)
Psychiatric Exam
Psychiatric Exam: normal mood/affect
Course
<CHESTER Cardona - Last Filed: 10/03/23 23:08>
Orders/Labs/Results
Orders:
Orders
10/03/23 20:47
EKG [Electrocardiogram (*1)] Urgent
Reason for Study: Syncope
EKG- Treatment ONCE
10/03/23 21:27
Complete Blood Count/With Diff Urgent
Comprehensive Metabolic Panel Urgent
10/03/23 22:42
Orthostatic VS- Treatment ONCE
10/03/23 22:44
0.9% Sodium Chloride 1000 ml [Nss] 1,000 ml IV BOLUS
10/04/23 00:08
Carvedilol [Coreg] 25 mg .ROUTE .STK-MED ONE
Lamotrigine [Lamictal] 200 mg .ROUTE .STK-MED ONE
10/04/23 00:09
Valsartan [Diovan] 320 mg .ROUTE .STK-MED ONE
10/04/23 00:10
Trazodone [Desyrel] 100 mg .ROUTE .STK-MED ONE
10/04/23 00:11
Aripiprazole [Abilify] 15 mg .ROUTE .STK-MED ONE
10/04/23 00:12
ARIPiprazole [Abilify] 5 mg .ROUTE .STK-MED ONE
Duloxetine Delayed Release [Cymbalta Delayed Release] 60 mg .ROUTE .STK-MED ONE
10/04/23 00:18
Trazodone [Desyrel] 100 mg PO NOW STA
10/04/23 00:19
ARIPiprazole [Abilify] 20 mg PO NOW STA
10/04/23 00:20
Carvedilol [Coreg] 25 mg PO NOW STA
10/04/23 00:21
Lamotrigine [Lamictal] 200 mg PO NOW STA
10/04/23 00:22
Valsartan [Diovan] 320 mg PO NOW STA
10/04/23 00:23
Duloxetine Delayed Release [Cymbalta Delayed Release] 60 mg PO NOW STA
Abnormal Lab Results
10/03/23
21:27
WBC 3.4 L 10^3/uL
(4.8-10.8)
RBC 3.19 L 10^6/uL
(4.20-5.40)
Hgb 10.4 L g/dL
(12.0-16.0)
Hct 29.6 L %
(37.0-47.0)
MCH 32.6 H pg
(27.0-31.0)
Monocytes % 11.0 H %
(1.7-9.3)
Sodium 134 L mmol/L
(135-145)
Chloride 97 L mmol/L
(98-107)
BUN 20 H mg/dl
(7-17)
Glucose 111 H mg/dl
(70-99)
Total Protein 5.5 L g/dl
(6.3-8.2)
10/03/23 21:27
10/03/23 21:27
Vital Signs
Initial and Last Documented VS:
Initial Vital Signs
Temp Pulse Resp BP Pulse Ox
97.7 F 75 16 125/73 99
10/03/23 20:47 10/03/23 20:47 10/03/23 20:47 10/03/23 20:47 10/03/23 20:47
Last Documented Vital Signs
Temp Pulse Resp BP Pulse Ox
97.7 F 68 15 125/61 94
10/03/23 20:47 10/04/23 06:00 10/04/23 06:00 10/04/23 06:00 10/04/23 06:00
<Katiuska R. Santos, DO - Last Filed: 10/04/23 06:29>
Orders/Labs/Results
Orders:
Orders
10/03/23 20:47
EKG [Electrocardiogram (*1)] Urgent
Reason for Study: Syncope
EKG- Treatment ONCE
10/03/23 21:27
Complete Blood Count/With Diff Urgent
Comprehensive Metabolic Panel Urgent
10/03/23 22:42
Orthostatic VS- Treatment ONCE
10/03/23 22:44
0.9% Sodium Chloride 1000 ml [Nss] 1,000 ml IV BOLUS
10/04/23 00:08
Carvedilol [Coreg] 25 mg .ROUTE .STK-MED ONE
Lamotrigine [Lamictal] 200 mg .ROUTE .STK-MED ONE
10/04/23 00:09
Valsartan [Diovan] 320 mg .ROUTE .STK-MED ONE
10/04/23 00:10
Trazodone [Desyrel] 100 mg .ROUTE .STK-MED ONE
10/04/23 00:11
Aripiprazole [Abilify] 15 mg .ROUTE .STK-MED ONE
10/04/23 00:12
ARIPiprazole [Abilify] 5 mg .ROUTE .STK-MED ONE
Duloxetine Delayed Release [Cymbalta Delayed Release] 60 mg .ROUTE .STK-MED ONE
10/04/23 00:18
Trazodone [Desyrel] 100 mg PO NOW STA
10/04/23 00:19
ARIPiprazole [Abilify] 20 mg PO NOW STA
10/04/23 00:20
Carvedilol [Coreg] 25 mg PO NOW STA
10/04/23 00:21
Lamotrigine [Lamictal] 200 mg PO NOW STA
10/04/23 00:22
Valsartan [Diovan] 320 mg PO NOW STA
10/04/23 00:23
Duloxetine Delayed Release [Cymbalta Delayed Release] 60 mg PO NOW STA
Abnormal Lab Results
10/03/23
21:27
WBC 3.4 L 10^3/uL
(4.8-10.8)
RBC 3.19 L 10^6/uL
(4.20-5.40)
Hgb 10.4 L g/dL
(12.0-16.0)
Hct 29.6 L %
(37.0-47.0)
MCH 32.6 H pg
(27.0-31.0)
Monocytes % 11.0 H %
(1.7-9.3)
Sodium 134 L mmol/L
(135-145)
Chloride 97 L mmol/L
(98-107)
BUN 20 H mg/dl
(7-17)
Glucose 111 H mg/dl
(70-99)
Total Protein 5.5 L g/dl
(6.3-8.2)
10/03/23 21:27
10/03/23 21:27
Vital Signs
Initial and Last Documented VS:
Initial Vital Signs
Temp Pulse Resp BP Pulse Ox
97.7 F 75 16 125/73 99
10/03/23 20:47 10/03/23 20:47 10/03/23 20:47 10/03/23 20:47 10/03/23 20:47
Last Documented Vital Signs
Temp Pulse Resp BP Pulse Ox
97.7 F 68 15 125/61 94
10/03/23 20:47 10/04/23 06:00 10/04/23 06:00 10/04/23 06:00 10/04/23 06:00
<CHESTER Cardona - Last Filed: 10/03/23 23:08>
MDM/Problems Addressed
Differential Diagnosis Includes:
fatigue due to sleep disturbance from sleep apnea, side effect of chemo, narcolepsy
MDM/Problems Addressed:
67 year old female who presents with 1 year of fatigue, sleepiness that worsened today.
<CHESTER Cardona - Last Filed: 10/03/23 23:08>
*Critical Care Note
Total Time (30-74mins, 75-104mins- exclusive of procedures): Not Applicable
ED Attending Note
<CHESTER Cardona - Last Filed: 10/03/23 23:08>
-
Portions of this chart may have been created with voice recognition software.� Occasional wrong word or��sound alike� substitutions may have occurred due to the inherent limitations of voice recognition software.
<Katiuska Santos DO - Last Filed: 10/04/23 06:29>
ED Attending Note
Patient seen and examined by attending physician: Yes
I performed the substantive portion of visit, reviewed & personally made and approve the management plan that is documented in note by myself or MALOU.: Yes
I performed a history and physical exam of patient and discussed management with resident, I reviewed resident's note and agree with documented findings and plan of care.: Yes
ED Attending Note:
This is a 67-year-old woman who has history of hypertension, hyperlipidemia, GERD, [id number] diabetes, anxiety, obstructive sleep apnea. She has history of triple negative right breast cancer status post lumpectomy 2007 and over the
past several years has been maintained on immunotherapy, Trodelvy which she receives 14-day cycle then 1 week off. Her last 14-day cycle completed Wednesday, 2 days ago.
She presents with complaints of generalized fatigue and moderate sleepiness stating that she falls asleep readily when sitting at home. Symptoms have been ongoing for at least 6 months perhaps longer.
She continues to drive and admits that she never falls asleep while driving. She has had no syncopal episodes, no falls.
She was diagnosed with obstructive sleep apnea perhaps 8 months ago and has been compliant with CPAP nightly. Despite initiation of CPAP her generalized fatigue and drowsiness persist. She was concerned for possible narcolepsy but admits that her
profile shaper operator does not believe she has narcolepsy and as above she has never fallen asleep while driving nor falling asleep when she is outdoors.
She denies dizziness nor sense of spinning, denies palpitations nor chest pain. She does admit to intermittent nausea but has had no vomiting. No change in weight. No fevers or chills.
She admits to occasional loose stools passing a normal soft stool today and then a small nonbloody loose stool shortly after. These intermittent generally no more than once daily loose stools have been an ongoing issue as well, overall unchanged.
She has had no bloody nor black stools. She denies abdominal pain. No dysuria and urgency and or hematuria.
She follows with a psychiatrist regarding anxiety, maintained on Abilify and also takes hydroxyzine 10 mg tablets for as needed anxiety. She takes hydroxyzine several times per week but denies daily use.
She is concerned that the hydroxyzine may be adding to her sleepiness. She is also unsure if hydroxyzine has been helping for her anxiety. Her last dose of hydroxyzine was 12:30 this afternoon.
GENERAL: 67-year-old woman appears her stated age, awake and alert, pleasant, appears in no acute distress.
EYE: pupils equal and reactive. anicteric. No nystagmus.
NECK: Supple, nontender, no meningismus, no significant adenopathy.
ENT: oral mucosa is moist. No rhinorrhea.
CARDIAC: Regular rate and rhythm. no murmur.
LUNGS: Clear breath sounds bilaterally, no acute respiratory distress, no wheezes/rales/rhonchi
ABDOMEN: Rotund, soft, nondistended, without focal tenderness, no r/g, no cvat. normoactive BS.
NEUROLOGICAL: Alert and oriented x3, no focal neuro deficits. Motor strength is 5/5 bilaterally. Gross sensation is intact.
SKIN: Warm and dry, mildly pale in color, skin intact. No rash.
MUSCULOSKELETAL: No C/C/E. peripheral pulses are full and equal b/l. No palpable tenderness.
PSYCH: Normal and appropriate interaction.
Patient presents with ongoing fatigue, sleepiness mild generalized weakness that have been ongoing issues for 6 months perhaps longer.
She does admit to occasional loose stools in past 1 loose stool today but no loose stools yesterday and admits that loose stools are sporadic, somewhat chronic in nature and at this point does not seem to be worsening.
She is chronically maintained on immunotherapy for breast cancer with recent 14-day cycle completing 2 days ago.
Concern for progressive anemia, neutropenia, electrolyte abnormality, hypoglycemia, acute kidney injury. She is afebrile and has not reported a fever thus nothing to suggest neutropenic fever.
She denies dizziness nor sense of spinning, no lateralizing weakness, no falls, no headache, no palpitations. She has had no dyspnea on exertion but does admit to somewhat chronic fatigue.
Nothing in history to suggest vertiginous symptoms nor central neurologic symptoms.
Review of records reveals unremarkable CT of the head less than 3 months ago.
PET scan 2 months ago shows a 7 cm partially calcified soft tissue mass right breast�unchanged from previous imaging otherwise no evidence of metastasis nor adenopathy.
EKG shows normal sinus rhythm, normal axis, normal intervals, overall similar and unchanged from previous EKG July 08.
Labs thus far show mild but overall stable anemia.
Mild leukopenia with white blood cell count of 3.4. Absolute neutrophil count 1770. She will be due for Neulasta injection tomorrow at her oncologist office.
Chemistries show mildly elevated BUN of 20 with normal creatinine of 0.6. Unremarkable chemistries. Normal random glucose of 111. LFTs within normal limits.
Will check orthostatic vital signs, assess for potential orthostasis and will plan to give a liter of normal saline solution for very mild prerenal azotemia.
At this point no indication for imaging.
10/04/2023 00:30 AM
Orthostatic vital signs are negative.
Patient feeling improved after IV fluids.
At this point nothing to suggest acute neurologic nor cardiac event and symptoms appear to be ongoing, chronic in nature.
Will plan to discharge home with recommendation for follow-up with her oncologist as well as PCP.
Patient lives alone, arrives via EMS. Will continue to observe in the ED until the morning and then arrange for transport to home.
She requests all of her usual nighttime medications which will be given.
Discharge Plan
Departure
Patient Disposition: Home (Routine Discharge)
Date of Disposition: 10/04/23
Time of Disposition: 00:44
Patient with high blood pressure during this ER visit?: No
Condition: Good
Discharge Problem:
Chronic fatigue and malaise
Instructions: Fatigue (DC)
Prescriptions:
No Action
latanoprost 0.005 % Drops
1 drp OPHTHALMIC (EYE) DAILY
Rx Instructions:
both eyes
metformin 500 mg Tablet
500 mg PO BID
atorvastatin 20 mg Tablet
20 mg PO DAILY
carvedilol 12.5 mg Tablet
12.5 mg PO BID
lamotrigine 200 mg Tablet
200 mg PO BID
famotidine 40 mg Tablet
40 mg PO BID
valsartan 80 mg Tablet
80 mg PO DAILY
allopurinol 100 mg Tablet
100 mg PO DAILY
aspirin 81 mg Tablet,Delayed Release (Dr/Ec)
81 mg PO DAILY
ondansetron 8 mg Tablet,Disintegrating
8 mg PO Q8H PRN (Reason: nausea)
trazodone 100 mg Tablet
100 mg PO HS
benzonatate 100 mg Capsule
100 mg PO TID PRN (Reason: dry cough)
pantoprazole 40 mg Tablet,Delayed Release (Dr/Ec)
40 mg PO BID
montelukast 10 mg Tablet
10 mg PO HS
estradiol 0.01 % (0.1 mg/gram) Cream
1 g VAGINAL QWEEK
Neulasta 6 mg/0.6 mL Syringe
6 mg SC ONCE
Rx Instructions:
Wednesday after chemo
aripiprazole [Abilify] 20 mg Tablet
20 mg PO HS
duloxetine 60 mg Capsule,Delayed Release(Dr/Ec)
60 mg PO BID
Centrum Silver 0.4 mg-300 mcg- 250 mcg Tablet
1 tab PO DAILY
pregabalin 75 mg Capsule
75 mg PO BID
cholecalciferol (vitamin D3) [Vitamin D3] 25 mcg (1,000 unit) Tablet
25 mcg PO DAILY
melatonin 10 mg Tablet
10 mg PO HS
sacituzumab govitecan-hziy 180 mg Recon Soln
180 mg IV
Rx Instructions:
Fridays for 2 weeks then off 1 week
Referrals:
Delroy Lowe Jr., DO [Family Provider] - Call in 1-3 days for appt
Interventions
Interventions:
*Risk Screen - Suicide Last Done: 10/03/23 20:47
*General Assessment Last Done: 10/03/23 20:47
*Neglect/Abuse Screening Last Done: 10/03/23 20:47
ED- Cardiac Assessment Last Done: 10/03/23 21:29
ED- Neurological Assessment Last Done: 10/03/23 21:29
ED- Pulmonary Assessment Last Done: 10/03/23 21:29
Discharge Date and Time
Print Language: MAORI
[2023-10-03] MEDS: NSS 1000 IV (23:10)
[2023-10-04] VITALS (8 sets, daily range): BP systolic 110–139; BP diastolic 54–68
[2023-10-04] MEDS: DESYREL 100 MG PO (00:18)
[2023-10-04] MEDS: ABILIFY 20 MG PO (00:19)
[2023-10-04] MEDS: COREG 25 MG PO (00:20)
[2023-10-04] MEDS: DIOVAN 320 MG PO (00:22)
[2023-10-04] MEDS: LAMICTAL 200 MG PO (00:22)
[2023-10-04] MEDS: CYMBALTA DELAYED RELEASE 60 MG PO (00:23)
== END 2023-10-04 08:45 | disposition home or self-care (01) ==
LOC: EMR 20:45
PROVIDERS: Emergency Medicine; EMERGENCY PHYSICIAN Emergency Medicine; FAMILY PHYSICIAN Family Medicine
DX: R53.82 Chronic fatigue, unspecified (principal); R53.81 Other malaise; I10 Essential (primary) hypertension; E78.00 Pure hypercholesterolemia, unspecified; E11.9 Type 2 diabetes mellitus without complications
CPT/HCPCS: 99284; 96374; 96361; 80053; 85025; 93005

== ENCOUNTER → 2023-10-12 12:44 | Outpatient (REF) | payer OTHER, SELFPAY ==
[2023-10-12 13:59] LABS: % Basophils 0.8 % (0-2); % Eosinophils 0.4 % (0-6); % Immature Granulocytes 1.3 % (0-0.5); % Lymphocytes 8.8 % (20.5-51.1); % Monocytes 7.1 % (1.7-9.3); % Neutrophils 81.6 % (42.2-75.2); Absolute Basophils 0.1 10^3/uL (0-0.2); Absolute Immature Granulocytes 0.1 10^3/uL (0-0.05); Absolute Monocytes 0.8 10^3/uL (0.1-0.6); Hematocrit 31.1 % (37.0-47.0); Hemoglobin 10.5 g/dL (12.0-16.0); Mean Corp Hgb Conc. 33.8 g/dL (33.0-37.0); Mean Corpuscular Volume 94.8 fL (81.0-99.0); Mean Platelet Volume 11.2 fL (7.4-10.4); Nucleated Red Blood Cells % 0 %; Platelet Count 194 10^3/uL (130-400); Red Blood Cell Count 3.28 10^6/uL (4.20-5.40); Red Cell Dist. Width 14.6 % (11.5-14.5)
[2023-10-12 14:47] LABS: ALT (SGPT) 16 U/L (0-35); AST (SGOT) 19 U/L (14-36); Albumin 3.8 g/dl (3.5-5.0); Alkaline Phosphatase 104 U/L (38-126); Blood Urea Nitrogen 8 mg/dl (7-17); Calcium 8.4 mg/dl (8.4-10.2); Carbon Dioxide 27 mmol/L (22-30); Chloride 103 mmol/L (98-107); Glucose 129 mg/dl (70-99); Potassium 3.4 mmol/L (3.5-5.1); Sodium 138 mmol/L (135-145); Total Bilirubin 0.5 mg/dl (0.2-1.3); Total Protein 6.1 g/dl (6.3-8.2); eGFR > 60.00
== END ==
LOC: REG 12:44
PROVIDERS: ATTENDING PHYSICIAN Internal Medicine Hematology & Oncology; FAMILY PHYSICIAN Family Medicine
DX: C50.811 Malignant neoplasm of overlapping sites of right female breast (principal); C79.89 Secondary malignant neoplasm of other specified sites; G89.3 Neoplasm related pain (acute) (chronic)
CPT/HCPCS: 36415; 80053; 85025

== ENCOUNTER → 2023-10-19 08:48 | Outpatient (REF) | payer OTHER, SELFPAY ==
[2023-10-19 09:50] LABS: % Basophils 0.3 % (0-2); % Eosinophils 0.9 % (0-6); % Immature Granulocytes 0.3 % (0-0.5); % Lymphocytes 9.2 % (20.5-51.1); % Monocytes 3.2 % (1.7-9.3); % Neutrophils 86.1 % (42.2-75.2); Absolute Eosinophils 0.1 10^3/uL (0-0.7); Absolute Lymphocytes 0.8 10^3/uL (1.2-3.4); Absolute Monocytes 0.3 10^3/uL (0.1-0.6); Absolute Neutrophils 7.8 10^3/uL (1.4-6.5); Hematocrit 33.7 % (37.0-47.0); Hemoglobin 11.4 g/dL (12.0-16.0); Mean Corp Hgb Conc. 33.8 g/dL (33.0-37.0); Mean Corpuscular Hgb 32.1 pg (27.0-31.0); Mean Corpuscular Volume 94.9 fL (81.0-99.0); Mean Platelet Volume 11.1 fL (7.4-10.4); Nucleated Red Blood Cells % 0 %; Platelet Count 198 10^3/uL (130-400); Red Blood Cell Count 3.55 10^6/uL (4.20-5.40); Red Cell Dist. Width 14.7 % (11.5-14.5); White Blood Cell Count 9.1 10^3/uL (4.8-10.8)
[2023-10-19 10:22] LABS: ALT (SGPT) 15 U/L (0-35); AST (SGOT) 14 U/L (14-36); Albumin 4.2 g/dl (3.5-5.0); Alkaline Phosphatase 84 U/L (38-126); Carbon Dioxide 30 mmol/L (22-30); Chloride 98 mmol/L (98-107); Glucose 103 mg/dl (70-99); Sodium 137 mmol/L (135-145); Total Bilirubin 1.1 mg/dl (0.2-1.3); Total Protein 6.2 g/dl (6.3-8.2); eGFR > 60.00
[2023-10-19 10:33] LABS: Blood Urea Nitrogen 15 mg/dl (7-17)
== END ==
LOC: REG 08:48
PROVIDERS: ATTENDING PHYSICIAN Internal Medicine Hematology & Oncology; FAMILY PHYSICIAN Family Medicine
DX: C50.811 Malignant neoplasm of overlapping sites of right female breast (principal); C79.89 Secondary malignant neoplasm of other specified sites; G89.3 Neoplasm related pain (acute) (chronic)
CPT/HCPCS: 36415; 80053; 85025

== ENCOUNTER → 2023-10-20 13:31 | Outpatient (REF) | payer OTHER, SELFPAY | LOC: RCS 13:31 | PROVIDERS: ATTENDING PHYSICIAN Internal Medicine Cardiovascular Disease; FAMILY PHYSICIAN Family Medicine | DX: I10 Essential (primary) hypertension (principal); T45.1X5A Adverse effect of antineoplastic and immunosuppressive drugs, initial encounter; R06.09 Other forms of dyspnea | CPT/HCPCS: 93306 ==

== ENCOUNTER → 2023-11-03 09:27 | Outpatient (REF) | payer OTHER, SELFPAY ==
[2023-11-03 10:20] LABS: % Basophils 0.6 % (0-2); % Eosinophils 0.3 % (0-6); % Immature Granulocytes 0.9 % (0-0.5); % Lymphocytes 9.4 % (20.5-51.1); % Monocytes 6.2 % (1.7-9.3); % Neutrophils 82.6 % (42.2-75.2); Absolute Basophils 0.1 10^3/uL (0-0.2); Absolute Immature Granulocytes 0.1 10^3/uL (0-0.05); Absolute Lymphocytes 0.9 10^3/uL (1.2-3.4); Absolute Monocytes 0.6 10^3/uL (0.1-0.6); Absolute Neutrophils 7.9 10^3/uL (1.4-6.5); Hematocrit 31.6 % (37.0-47.0); Hemoglobin 10.6 g/dL (12.0-16.0); Mean Corp Hgb Conc. 33.5 g/dL (33.0-37.0); Mean Corpuscular Hgb 32.4 pg (27.0-31.0); Mean Corpuscular Volume 96.6 fL (81.0-99.0); Mean Platelet Volume 10.7 fL (7.4-10.4); Nucleated Red Blood Cells % 0 %; Platelet Count 185 10^3/uL (130-400); Red Blood Cell Count 3.27 10^6/uL (4.20-5.40); Red Cell Dist. Width 15.4 % (11.5-14.5); White Blood Cell Count 9.6 10^3/uL (4.8-10.8)
[2023-11-03 11:01] LABS: ALT (SGPT) 18 U/L (0-35); AST (SGOT) 15 U/L (14-36); Albumin 3.9 g/dl (3.5-5.0); Alkaline Phosphatase 101 U/L (38-126); Blood Urea Nitrogen 10 mg/dl (7-17); Calcium 8.9 mg/dl (8.4-10.2); Carbon Dioxide 27 mmol/L (22-30); Chloride 100 mmol/L (98-107); Glucose 115 mg/dl (70-99); Iron 89 ug/dl (37-170); Potassium 3.9 mmol/L (3.5-5.1); Sodium 137 mmol/L (135-145); Total Bilirubin 0.5 mg/dl (0.2-1.3); Total Protein 5.9 g/dl (6.3-8.2); eGFR > 60.00
[2023-11-03 11:20] LABS: Percent Saturation 33 % (20-50); Total Iron Binding Capacity 265 ug/dl (265-497)
== END ==
LOC: REG 09:27
PROVIDERS: ATTENDING PHYSICIAN Internal Medicine Hematology & Oncology; FAMILY PHYSICIAN Family Medicine
DX: C50.811 Malignant neoplasm of overlapping sites of right female breast (principal); C79.89 Secondary malignant neoplasm of other specified sites; G89.3 Neoplasm related pain (acute) (chronic); D50.9 Iron deficiency anemia, unspecified
CPT/HCPCS: 36415; 80053; 82728; 83540; 83550; 85025

== ENCOUNTER → 2023-11-10 10:47 | Outpatient (REF) | payer OTHER, SELFPAY ==
[2023-11-10 12:15] LABS: % Basophils 0.6 % (0-2); % Eosinophils 1.1 % (0-6); % Immature Granulocytes 0.3 % (0-0.5); % Lymphocytes 14.5 % (20.5-51.1); % Monocytes 4.7 % (1.7-9.3); % Neutrophils 78.8 % (42.2-75.2); ALT (SGPT) 16 U/L (0-35); AST (SGOT) 15 U/L (14-36); Absolute Eosinophils 0.1 10^3/uL (0-0.7); Absolute Monocytes 0.3 10^3/uL (0.1-0.6); Absolute Neutrophils 5.2 10^3/uL (1.4-6.5); Albumin 4.3 g/dl (3.5-5.0); Alkaline Phosphatase 79 U/L (38-126); Blood Urea Nitrogen 14 mg/dl (7-17); Carbon Dioxide 27 mmol/L (22-30); Chloride 99 mmol/L (98-107); Glucose 118 mg/dl (70-99); Hematocrit 34.5 % (37.0-47.0); Hemoglobin 11.9 g/dL (12.0-16.0); Mean Corp Hgb Conc. 34.5 g/dL (33.0-37.0); Mean Corpuscular Hgb 33.5 pg (27.0-31.0); Mean Corpuscular Volume 97.2 fL (81.0-99.0); Mean Platelet Volume 10.9 fL (7.4-10.4); Nucleated Red Blood Cells % 0 %; Platelet Count 210 10^3/uL (130-400); Potassium 3.9 mmol/L (3.5-5.1); Red Blood Cell Count 3.55 10^6/uL (4.20-5.40); Red Cell Dist. Width 14.5 % (11.5-14.5); Sodium 136 mmol/L (135-145); Total Bilirubin 0.9 mg/dl (0.2-1.3); Total Protein 6.3 g/dl (6.3-8.2); White Blood Cell Count 6.6 10^3/uL (4.8-10.8); eGFR > 60.00
== END ==
LOC: REG 10:47
PROVIDERS: ATTENDING PHYSICIAN Internal Medicine Hematology & Oncology; FAMILY PHYSICIAN Family Medicine
DX: C50.811 Malignant neoplasm of overlapping sites of right female breast (principal); C79.89 Secondary malignant neoplasm of other specified sites; G89.3 Neoplasm related pain (acute) (chronic); D50.9 Iron deficiency anemia, unspecified
CPT/HCPCS: 36415; 80053; 85025

== ENCOUNTER → 2023-11-24 12:16 | Outpatient (REF) | payer OTHER, SELFPAY ==
[2023-11-24 14:09] LABS: % Basophils 0.6 % (0-2); % Immature Granulocytes 1.4 % (0-0.5); % Lymphocytes 4.5 % (20.5-51.1); % Monocytes 4.8 % (1.7-9.3); % Neutrophils 88.7 % (42.2-75.2); Absolute Basophils 0.1 10^3/uL (0-0.2); Absolute Immature Granulocytes 0.3 10^3/uL (0-0.05); Absolute Neutrophils 19.2 10^3/uL (1.4-6.5); Hemoglobin 13.3 g/dL (12.0-16.0); Mean Corp Hgb Conc. 34.1 g/dL (33.0-37.0); Mean Corpuscular Hgb 33.4 pg (27.0-31.0); Mean Platelet Volume 10.9 fL (7.4-10.4); Nucleated Red Blood Cells % 0 %; Platelet Count 261 10^3/uL (130-400); Red Blood Cell Count 3.98 10^6/uL (4.20-5.40); Red Cell Dist. Width 14.5 % (11.5-14.5); White Blood Cell Count 21.6 10^3/uL (4.8-10.8)
[2023-11-24 14:20] LABS: ALT (SGPT) 25 U/L (0-35); AST (SGOT) 16 U/L (14-36); Albumin 4.7 g/dl (3.5-5.0); Alkaline Phosphatase 109 U/L (38-126); Blood Urea Nitrogen 11 mg/dl (7-17); Calcium 9.3 mg/dl (8.4-10.2); Carbon Dioxide 26 mmol/L (22-30); Chloride 96 mmol/L (98-107); Glucose 126 mg/dl (70-99); Potassium 3.7 mmol/L (3.5-5.1); Sodium 135 mmol/L (135-145); Total Bilirubin 0.6 mg/dl (0.2-1.3); Total Protein 6.8 g/dl (6.3-8.2); eGFR > 60.00
== END ==
LOC: REG 12:16
PROVIDERS: ATTENDING PHYSICIAN Internal Medicine Hematology & Oncology; FAMILY PHYSICIAN Family Medicine
DX: C50.811 Malignant neoplasm of overlapping sites of right female breast (principal); C79.89 Secondary malignant neoplasm of other specified sites; G89.3 Neoplasm related pain (acute) (chronic)
CPT/HCPCS: 36415; 80053; 85025

== ENCOUNTER 2023-11-29 16:55 | Emergency (ER) | payer OTHER, SELFPAY ==
[2023-11-29 16:59] VITALS: BP 131/76
--- NOTE | 2023-11-29 18:29 | ED.GENMED ---
History of Present Illness
General
Chief Complaint: Abdominal Symptoms
Source: patient
Exam Limitations: none
Time Seen by Provider: 11/29/23 17:56
History of Present Illness
History of Present Illness:
This is a 67 year old female that comes in with c/o right lower abd pain. States that this started today when she was walking. States that she has just felt out of it today. States that she is nauseated and dizzy. Denies any fever, chills, chest
pain, SOB, vomiting, diarrhea, headache, urinary burning.
Past History
Past History
ED Past Medical History: Cancer, GERD, HTN, Hypercholesterolemia, IDDM and Other (Hiatal hernia, )
ED Past Surgical History: Cholecystectomy, Orthopedic (Jonathan knee replacement, Shoulder surgery, ) and Other (Right breast lumpectomy)
Social History
Tobacco: Non-smoker
Alcohol: None
Drug: None
Personal: Single
Living: with family
Review of Systems
Review of Systems
All Other Systems: ROS reviewed and negative except as documented in HPI and ROS
Constitutional: Reports no symptoms; Denies fever or chills
EENT: Reports no symptoms
Respiratory: Reports no symptoms; Denies cough or trouble breathing
Cardiac: Reports no symptoms; Denies chest pain
ABD/GI: Reports abdominal pain and nausea; Denies vomiting or diarrhea
: Reports no symptoms; Denies dysuria, frequency or urgency
Musculoskeletal: Reports no symptoms
Skin: Reports no symptoms
Neurological: Reports dizzy; Denies headache
Psychiatric: Reports no symptoms
Phy Exam
General Physical Exam
General Presentation: no apparent distress
General age: appears stated age
General Skin: warm and dry
General Habitus: elderly
General Mental: alert
General Hydration: appears well hydrated
ENT Exam
ENT Exam: TM's normal, pharynx normal and neck supple
Eye Exam
Eye Exam: EOMI
Cardiovascular Exam
Cardiovascular Exam: regular rate/rhythm, no murmur and normal peripheral pulses
Pulmonary Exam
Pulmonary Exam: lungs clear, no respiratory distress, no rales, chest non tender, no crackles, no rhonchi, no wheezing and no cough
Gastrointestinal Exam
Gastrointestinal Exam: normal bowel sounds, soft, no organomegaly, no pulsatile mass, non distended and tender (Slight Right lower abd tenderness with palpation)
Musculoskeletal Exam
Musculoskeletal Exam: full ROM and edema (Slight nonpitting edema of the lower legs)
Skin Exam
Skin Exam: normal color, warm/dry and no petechia
Psychiatric Exam
Psychiatric Exam: normal mood/affect
Course
Orders/Labs/Results
Orders:
Orders
11/29/23 18:28
CT Abd/Pel (IV only)-DH only Urgent
Comment:
Reason For Exam: Right lower abd pain
IV Insert/Care/Rem.- Treatment PRN
0.9% Sodium Chloride 500 ml [Nss] 500 ml IV BOLUS
11/29/23 18:36
Complete Blood Count/With Diff Urgent
Comprehensive Metabolic Panel Urgent
Lipase Urgent
Urinalysis Reflex To Culture Urgent
Date Specimen was Collected: 11/29/23
Time Specimen was Collected: 18:35
Urine Microscopic Reflex Cult Urgent
Urine Culture Urgent
BAM Source: U
Specimen Description:
Date Specimen was Collected: 11/29/23
Time Specimen was Collected: 18:35
Abnormal Lab Results
11/29/23
18:36
RBC 3.59 L 10^6/uL
(4.20-5.40)
Hgb 11.7 L g/dL
(12.0-16.0)
Hct 33.7 L %
(37.0-47.0)
MCH 32.6 H pg
(27.0-31.0)
Lymphocytes % 19.8 L %
(20.5-51.1)
Sodium 131 L mmol/L
(135-145)
Glucose 120 H mg/dl
(70-99)
Total Protein 6.0 L g/dl
(6.3-8.2)
Leukocyte Esterase Rfl 2+ A
(Negative)
Urine RBC 3-6 A /HPF
(0-2)
Urine WBC (Reflex) 11-15 A /HPF
(0-5)
11/29/23 18:36
11/29/23 18:36
H/H slightly low. Sodium slightly low. Glucose nonfasting. Total protein slightly low. Urine questionable for infection, Lipase normal at 176
Vital Signs
Initial and Last Documented VS:
Initial Vital Signs
Temp Pulse Resp BP Pulse Ox
98.2 F 70 16 131/76 98
11/29/23 16:59 11/29/23 16:59 11/29/23 16:59 11/29/23 16:59 11/29/23 16:59
Last Documented Vital Signs
Temp Pulse Resp BP Pulse Ox
98.2 F 74 19 145/61 97
11/29/23 20:07 11/29/23 20:07 11/29/23 20:07 11/29/23 20:07 11/29/23 20:07
MDM/Problems Addressed
Differential Diagnosis Includes:
Groin pull, appendicitis,
MDM/Problems Addressed:
This is a 67 year old female that comes in with c/o right lower abd discomfort with walking. States that this started today and that she has just felt off.
Will get labs, CT scan, IV fluids and urine.
Back into see patient. Explained that her CT is negative for any acute process. Her Blood work shows that her sodium is slightly low. Will have patient eat some canned soup or boxed food. Explained that her urine is questionable for infection but
patient has no frequency or burning. Will hold on antibiotics until the culture comes back and it positive patient will be called and started on an antibiotic. Explained that she may have pulled her groin muscle. Patient to use Tylenol or Ibuprofen
for pain. Return with any concerns.
Chronic conditions affecting care:
NA
Acute Exacerbation and/or Progression of Chronic Illness:
NA
*Radiology
Radiology exam reviewed: radiology read reviewed (CT-Unremarkable appendix. Markdely limited evaluation of intestinal tract without oral contrast, without intestinal obstruction or free air. Prior Cholecystectomy. Apparant old healed ununited
fracture of the right iliac bone. )
*Pulse Oximetry
Patient hypoxic: no
*EKG
Interpreted by ED Provider?: NA
Rate: EKG- N/A
*Practicing Md Anesthesiologist Interpretation
Rate: Practicing Md Anesthesiologist- N/A
*Critical Care Note
Total Time (30-74mins, 75-104mins- exclusive of procedures): Not Applicable
ED Attending Note
-
Portions of this chart may have been created with voice recognition software.� Occasional wrong word or��sound alike� substitutions may have occurred due to the inherent limitations of voice recognition software.
Discharge Plan
Departure
Patient Disposition: Home (Routine Discharge)
Date of Disposition: 11/29/23
Time of Disposition: 20:36
Patient with high blood pressure during this ER visit?: Yes
Condition: Good
Covid-19: Not Applicable
Discharge Problem:
Right groin pain
Instructions: Abdominal Pain, BLOOD PRESSURE
Prescriptions:
No Action
latanoprost 0.005 % Drops
1 drp OPHTHALMIC (EYE) DAILY
Rx Instructions:
both eyes
metformin 500 mg Tablet
500 mg PO BID
atorvastatin 20 mg Tablet
20 mg PO DAILY
carvedilol 12.5 mg Tablet
12.5 mg PO BID
lamotrigine 200 mg Tablet
200 mg PO BID
famotidine 40 mg Tablet
40 mg PO BID
valsartan 80 mg Tablet
80 mg PO DAILY
allopurinol 100 mg Tablet
100 mg PO DAILY
aspirin 81 mg Tablet,Delayed Release (Dr/Ec)
81 mg PO DAILY
ondansetron 8 mg Tablet,Disintegrating
8 mg PO Q8H PRN (Reason: nausea)
trazodone 100 mg Tablet
100 mg PO HS
benzonatate 100 mg Capsule
100 mg PO TID PRN (Reason: dry cough)
pantoprazole 40 mg Tablet,Delayed Release (Dr/Ec)
40 mg PO BID
montelukast 10 mg Tablet
10 mg PO HS
estradiol 0.01 % (0.1 mg/gram) Cream
1 g VAGINAL QWEEK
Neulasta 6 mg/0.6 mL Syringe
6 mg SC ONCE
Rx Instructions:
Wednesday after chemo
aripiprazole [Abilify] 20 mg Tablet
20 mg PO HS
duloxetine 60 mg Capsule,Delayed Release(Dr/Ec)
60 mg PO BID
Centrum Silver 0.4 mg-300 mcg- 250 mcg Tablet
1 tab PO DAILY
pregabalin 75 mg Capsule
75 mg PO BID
cholecalciferol (vitamin D3) [Vitamin D3] 25 mcg (1,000 unit) Tablet
25 mcg PO DAILY
melatonin 10 mg Tablet
10 mg PO HS
sacituzumab govitecan-hziy 180 mg Recon Soln
180 mg IV
Rx Instructions:
Fridays for 2 weeks then off 1 week
Referrals:
Delroy Lowe Jr., DO [Family Provider] - Call in 1-3 days for appt
Activity Restrictions/Additional Instructions:
As discussed, your blood work shows that your sodium is slightly low. Please try eating some canned soup or boxed food. Your CT is negative for any acute process. You may have pulled a groin muscle while walking. You may use Tylenol or Ibuprofen as
needed for pain. Follow up with the family doctor for recheck. Your Urine is also questionable for infection. IF the urine culture would come back positive for infection you will be called and started on an antibiotics. Follow up with the family
doctor for recheck. IF YOU HAVE ANY OTHER CONCERNS PLEASE RETURN TO THE EMERGENCY ROOM.
Interventions
Interventions:
*Risk Screen - Suicide Last Done: 11/29/23 18:24
*General Assessment Last Done: 11/29/23 18:24
*Neglect/Abuse Screening Last Done: 11/29/23 18:24
*ED COVID-19 Vaccine History Last Done: 11/29/23 18:24
PT-Lvnmpw-Mbopunbmgk Assessment Last Done: 11/29/23 17:22
Discharge Date and Time
Print Language: UPPER SORBIAN
[2023-11-29] MEDS: NSS 500 IV (18:38)
[2023-11-29 18:48] LABS: Urine Albumin Negative (Neg - Trace); Urine Bilirubin Negative (Negative); Urine Character Clear (Clear); Urine Color Straw; Urine Glucose Negative (Negative); Urine Ketone Negative (Negative); Urine Leukocyte 2+ (Negative); Urine Nitrite Negative (Negative); Urine Occult Blood Negative (Negative); Urine Specific Gravity 1.005 (<1.030); Urine Urobilinogen Negative (Neg - 1+)
[2023-11-29 18:49] LABS: % Basophils 0.5 % (0-2); % Eosinophils 0.7 % (0-6); % Immature Granulocytes 0.4 % (0-0.5); % Lymphocytes 19.8 % (20.5-51.1); % Monocytes 4.3 % (1.7-9.3); % Neutrophils 74.3 % (42.2-75.2); Absolute Eosinophils 0.1 10^3/uL (0-0.7); Absolute Lymphocytes 1.4 10^3/uL (1.2-3.4); Absolute Monocytes 0.3 10^3/uL (0.1-0.6); Absolute Neutrophils 5.4 10^3/uL (1.4-6.5); Hematocrit 33.7 % (37.0-47.0); Hemoglobin 11.7 g/dL (12.0-16.0); Mean Corp Hgb Conc. 34.7 g/dL (33.0-37.0); Mean Corpuscular Hgb 32.6 pg (27.0-31.0); Mean Corpuscular Volume 93.9 fL (81.0-99.0); Mean Platelet Volume 10.3 fL (7.4-10.4); Nucleated Red Blood Cells % 0 %; Platelet Count 185 10^3/uL (130-400); Red Blood Cell Count 3.59 10^6/uL (4.20-5.40); Red Cell Dist. Width 13.9 % (11.5-14.5); White Blood Cell Count 7.3 10^3/uL (4.8-10.8)
[2023-11-29 19:04] LABS: ALT (SGPT) 18 U/L (0-35); AST (SGOT) 15 U/L (14-36); Alkaline Phosphatase 86 U/L (38-126); Blood Urea Nitrogen 12 mg/dl (7-17); Carbon Dioxide 27 mmol/L (22-30); Chloride 98 mmol/L (98-107); Glucose 120 mg/dl (70-99); Lipase 176 U/L (23-300); Potassium 3.6 mmol/L (3.5-5.1); Sodium 131 mmol/L (135-145); Total Bilirubin 0.6 mg/dl (0.2-1.3); eGFR > 60.00
[2023-11-29 20:07] VITALS: BP 145/61
--- NOTE | 2023-11-29 21:17 | VATNOTE ---
left subq port deaccessed per protocol. brisk blood return noted prior to.
== END 2023-11-29 21:25 | disposition home or self-care (01) ==
LOC: EMR 16:55
PROVIDERS: Clinical Nurse Specialist Family Health; EMERGENCY PHYSICIAN Student in an Organized Health Care Education/Training Program; FAMILY PHYSICIAN Family Medicine
DX: R10.31 Right lower quadrant pain (principal); R42 Dizziness and giddiness; R11.0 Nausea; S32.301A Unspecified fracture of right ilium, initial encounter for closed fracture; X58.XXXA Exposure to other specified factors, initial encounter; I10 Essential (primary) hypertension; E78.00 Pure hypercholesterolemia, unspecified; K21.9 Gastro-esophageal reflux disease without esophagitis; E11.9 Type 2 diabetes mellitus without complications; K44.9 Diaphragmatic hernia without obstruction or gangrene; Z90.49 Acquired absence of other specified parts of digestive tract; Z96.653 Presence of artificial knee joint, bilateral; Z85.9 Personal history of malignant neoplasm, unspecified; Z79.4 Long term (current) use of insulin; Z79.82 Long term (current) use of aspirin
CPT/HCPCS: 99285; 74177; 80053; 81003; 81015; 83690; 85025; 87077; 87086; Q9967

== ENCOUNTER → 2023-11-30 13:56 | Outpatient (REF) | payer OTHER, SELFPAY ==
[2023-11-30 16:09] LABS: % Basophils 0.5 % (0-2); % Eosinophils 0.9 % (0-6); % Immature Granulocytes 0.5 % (0-0.5); % Lymphocytes 13.9 % (20.5-51.1); % Monocytes 4.1 % (1.7-9.3); % Neutrophils 80.1 % (42.2-75.2); Absolute Eosinophils 0.1 10^3/uL (0-0.7); Absolute Lymphocytes 1.2 10^3/uL (1.2-3.4); Absolute Monocytes 0.4 10^3/uL (0.1-0.6); Absolute Neutrophils 6.8 10^3/uL (1.4-6.5); Hematocrit 35.8 % (37.0-47.0); Hemoglobin 12.4 g/dL (12.0-16.0); Mean Corp Hgb Conc. 34.6 g/dL (33.0-37.0); Mean Corpuscular Hgb 33.4 pg (27.0-31.0); Mean Corpuscular Volume 96.5 fL (81.0-99.0); Mean Platelet Volume 10.7 fL (7.4-10.4); Nucleated Red Blood Cells % 0 %; Platelet Count 197 10^3/uL (130-400); Red Blood Cell Count 3.71 10^6/uL (4.20-5.40); Red Cell Dist. Width 13.7 % (11.5-14.5); White Blood Cell Count 8.5 10^3/uL (4.8-10.8)
[2023-11-30 16:36] LABS: ALT (SGPT) 18 U/L (0-35); AST (SGOT) 15 U/L (14-36); Alkaline Phosphatase 85 U/L (38-126); Blood Urea Nitrogen 9 mg/dl (7-17); Carbon Dioxide 28 mmol/L (22-30); Chloride 97 mmol/L (98-107); Glucose 97 mg/dl (70-99); Potassium 3.5 mmol/L (3.5-5.1); Sodium 132 mmol/L (135-145); Total Bilirubin 0.7 mg/dl (0.2-1.3); eGFR > 60.00
== END ==
LOC: REG 13:56
PROVIDERS: ATTENDING PHYSICIAN Internal Medicine Hematology & Oncology; FAMILY PHYSICIAN Family Medicine
DX: C50.811 Malignant neoplasm of overlapping sites of right female breast (principal); C79.89 Secondary malignant neoplasm of other specified sites; G89.3 Neoplasm related pain (acute) (chronic)
CPT/HCPCS: 36415; 80053; 85025

== ENCOUNTER → 2023-12-03 11:13 | Outpatient (REF) | payer OTHER, SELFPAY ==
[2023-12-03 12:03] LABS: Blood Urea Nitrogen 8 mg/dl (7-17); Iron 59 ug/dl (37-170); Percent Saturation 22 % (20-50); Total Iron Binding Capacity 258 ug/dl (265-497)
== END ==
LOC: OIDL 11:13
PROVIDERS: ATTENDING PHYSICIAN Nurse Practitioner Adult Health
DX: C50.811 Malignant neoplasm of overlapping sites of right female breast (principal)
CPT/HCPCS: 82565; 82728; 83540; 83550; 84520

== ENCOUNTER → 2023-12-14 13:37 | Outpatient (REF) | payer OTHER, SELFPAY ==
[2023-12-14 15:41] LABS: % Basophils 0.4 % (0-2); % Immature Granulocytes 1.3 % (0-0.5); % Lymphocytes 6.7 % (20.5-51.1); % Monocytes 7.5 % (1.7-9.3); % Neutrophils 84.1 % (42.2-75.2); Absolute Basophils 0.1 10^3/uL (0-0.2); Absolute Immature Granulocytes 0.2 10^3/uL (0-0.05); Absolute Lymphocytes 0.9 10^3/uL (1.2-3.4); Absolute Neutrophils 11.2 10^3/uL (1.4-6.5); Hematocrit 31.3 % (37.0-47.0); Hemoglobin 10.8 g/dL (12.0-16.0); Mean Corp Hgb Conc. 34.5 g/dL (33.0-37.0); Mean Corpuscular Hgb 33.8 pg (27.0-31.0); Mean Corpuscular Volume 97.8 fL (81.0-99.0); Mean Platelet Volume 11.1 fL (7.4-10.4); Nucleated Red Blood Cells % 0 %; Platelet Count 189 10^3/uL (130-400); Red Cell Dist. Width 14.2 % (11.5-14.5); White Blood Cell Count 13.4 10^3/uL (4.8-10.8)
[2023-12-14 16:52] LABS: ALT (SGPT) 16 U/L (0-35); AST (SGOT) 15 U/L (14-36); Albumin 4.2 g/dl (3.5-5.0); Alkaline Phosphatase 96 U/L (38-126); Blood Urea Nitrogen 13 mg/dl (7-17); Calcium 9.5 mg/dl (8.4-10.2); Carbon Dioxide 28 mmol/L (22-30); Chloride 100 mmol/L (98-107); Glucose 104 mg/dl (70-99); Potassium 3.5 mmol/L (3.5-5.1); Sodium 137 mmol/L (135-145); Total Bilirubin 0.4 mg/dl (0.2-1.3); Total Protein 6.2 g/dl (6.3-8.2); eGFR > 60.00
== END ==
LOC: REG 13:37
PROVIDERS: ATTENDING PHYSICIAN Internal Medicine Hematology & Oncology; FAMILY PHYSICIAN Family Medicine
DX: C50.811 Malignant neoplasm of overlapping sites of right female breast (principal); C79.89 Secondary malignant neoplasm of other specified sites; G89.3 Neoplasm related pain (acute) (chronic)
CPT/HCPCS: 36415; 80053; 85025

== ENCOUNTER → 2023-12-20 12:52 | Outpatient (REF) | payer OTHER, SELFPAY ==
[2023-12-20 13:26] LABS: % Basophils 0.7 % (0-2); % Eosinophils 0.5 % (0-6); % Immature Granulocytes 0.4 % (0-0.5); % Lymphocytes 13.4 % (20.5-51.1); % Monocytes 3.4 % (1.7-9.3); % Neutrophils 81.6 % (42.2-75.2); Absolute Basophils 0.1 10^3/uL (0-0.2); Absolute Lymphocytes 1.1 10^3/uL (1.2-3.4); Absolute Monocytes 0.3 10^3/uL (0.1-0.6); Absolute Neutrophils 6.7 10^3/uL (1.4-6.5); Hematocrit 33.7 % (37.0-47.0); Hemoglobin 11.6 g/dL (12.0-16.0); Mean Corp Hgb Conc. 34.4 g/dL (33.0-37.0); Mean Corpuscular Hgb 33.4 pg (27.0-31.0); Mean Corpuscular Volume 97.1 fL (81.0-99.0); Mean Platelet Volume 10.7 fL (7.4-10.4); Nucleated Red Blood Cells % 0 %; Platelet Count 200 10^3/uL (130-400); Red Blood Cell Count 3.47 10^6/uL (4.20-5.40); Red Cell Dist. Width 14.3 % (11.5-14.5); White Blood Cell Count 8.2 10^3/uL (4.8-10.8)
[2023-12-20 15:38] LABS: ALT (SGPT) 14 U/L (0-35); AST (SGOT) 14 U/L (14-36); Alkaline Phosphatase 71 U/L (38-126); Blood Urea Nitrogen 20 mg/dl (7-17); Carbon Dioxide 28 mmol/L (22-30); Chloride 100 mmol/L (98-107); Glucose 108 mg/dl (70-99); Potassium 3.4 mmol/L (3.5-5.1); Sodium 139 mmol/L (135-145); Total Bilirubin 0.8 mg/dl (0.2-1.3); eGFR > 60.00
== END ==
LOC: REG 12:52
PROVIDERS: ATTENDING PHYSICIAN Internal Medicine Hematology & Oncology; FAMILY PHYSICIAN Family Medicine
DX: C50.811 Malignant neoplasm of overlapping sites of right female breast (principal); C79.89 Secondary malignant neoplasm of other specified sites; G89.3 Neoplasm related pain (acute) (chronic)
CPT/HCPCS: 36415; 80053; 85025

== ENCOUNTER → 2023-12-29 06:19 | Day surgery (SDC) | payer OTHER, SELFPAY ==
[2023-12-29 09:05] LABS: Glucose - Point of Care 132 mg/dl (70-99)
== END ==
LOC: GI 06:19
PROVIDERS: ATTENDING PHYSICIAN Internal Medicine Gastroenterology; FAMILY PHYSICIAN Family Medicine
DX: K44.9 Diaphragmatic hernia without obstruction or gangrene (principal); R12 Heartburn
CPT/HCPCS: 43235; 82962

== ENCOUNTER → 2024-01-04 12:06 | Outpatient (REF) | payer OTHER, SELFPAY ==
[2024-01-04 13:15] LABS: % Basophils 0.4 % (0-2); % Eosinophils 0.4 % (0-6); % Monocytes 6.4 % (1.7-9.3); % Neutrophils 79.8 % (42.2-75.2); Absolute Immature Granulocytes 0.1 10^3/uL (0-0.05); Absolute Lymphocytes 1.1 10^3/uL (1.2-3.4); Absolute Monocytes 0.6 10^3/uL (0.1-0.6); Absolute Neutrophils 7.2 10^3/uL (1.4-6.5); Hematocrit 33.4 % (37.0-47.0); Hemoglobin 11.4 g/dL (12.0-16.0); Mean Corp Hgb Conc. 34.1 g/dL (33.0-37.0); Mean Corpuscular Hgb 33.7 pg (27.0-31.0); Mean Corpuscular Volume 98.8 fL (81.0-99.0); Nucleated Red Blood Cells % 0 %; Platelet Count 200 10^3/uL (130-400); Red Blood Cell Count 3.38 10^6/uL (4.20-5.40); Red Cell Dist. Width 13.6 % (11.5-14.5)
[2024-01-04 13:36] LABS: ALT (SGPT) 17 U/L (0-35); AST (SGOT) 18 U/L (14-36); Albumin 4.1 g/dl (3.5-5.0); Alkaline Phosphatase 99 U/L (38-126); Blood Urea Nitrogen 10 mg/dl (7-17); Calcium 8.9 mg/dl (8.4-10.2); Carbon Dioxide 28 mmol/L (22-30); Chloride 101 mmol/L (98-107); Glucose 172 mg/dl (70-99); Sodium 140 mmol/L (135-145); Total Bilirubin 0.6 mg/dl (0.2-1.3); Total Protein 6.3 g/dl (6.3-8.2); eGFR > 60.00
== END ==
LOC: REG 12:06
PROVIDERS: ATTENDING PHYSICIAN Internal Medicine Hematology & Oncology; FAMILY PHYSICIAN Family Medicine
DX: C50.811 Malignant neoplasm of overlapping sites of right female breast (principal); C79.89 Secondary malignant neoplasm of other specified sites; G89.3 Neoplasm related pain (acute) (chronic)
CPT/HCPCS: 36415; 80053; 85025

== ENCOUNTER → 2024-01-11 08:20 | Outpatient (REF) | payer OTHER, SELFPAY ==
[2024-01-11 08:54] LABS: % Basophils 0.8 % (0-2); % Eosinophils 1.8 % (0-6); % Immature Granulocytes 0.3 % (0-0.5); % Lymphocytes 15.4 % (20.5-51.1); % Monocytes 5.2 % (1.7-9.3); % Neutrophils 76.5 % (42.2-75.2); Absolute Eosinophils 0.1 10^3/uL (0-0.7); Absolute Lymphocytes 0.6 10^3/uL (1.2-3.4); Absolute Monocytes 0.2 10^3/uL (0.1-0.6); Absolute Neutrophils 2.9 10^3/uL (1.4-6.5); Hematocrit 34.6 % (37.0-47.0); Mean Corp Hgb Conc. 34.7 g/dL (33.0-37.0); Mean Corpuscular Hgb 32.6 pg (27.0-31.0); Mean Platelet Volume 10.6 fL (7.4-10.4); Nucleated Red Blood Cells % 0 %; Platelet Count 172 10^3/uL (130-400); Red Blood Cell Count 3.68 10^6/uL (4.20-5.40); Red Cell Dist. Width 13.4 % (11.5-14.5); White Blood Cell Count 3.8 10^3/uL (4.8-10.8)
[2024-01-11 10:33] LABS: ALT (SGPT) 17 U/L (0-35); AST (SGOT) 16 U/L (14-36); Alkaline Phosphatase 76 U/L (38-126); Blood Urea Nitrogen 14 mg/dl (7-17); Calcium 9.2 mg/dl (8.4-10.2); Carbon Dioxide 26 mmol/L (22-30); Chloride 100 mmol/L (98-107); Glucose 133 mg/dl (70-99); Potassium 4.3 mmol/L (3.5-5.1); Sodium 138 mmol/L (135-145); Total Bilirubin 0.8 mg/dl (0.2-1.3); Total Protein 6.1 g/dl (6.3-8.2); eGFR > 60.00
== END ==
LOC: REG 08:20
PROVIDERS: ATTENDING PHYSICIAN Internal Medicine Hematology & Oncology; FAMILY PHYSICIAN Family Medicine
DX: C50.811 Malignant neoplasm of overlapping sites of right female breast (principal); C79.89 Secondary malignant neoplasm of other specified sites; G89.3 Neoplasm related pain (acute) (chronic); E11.9 Type 2 diabetes mellitus without complications; D64.9 Anemia, unspecified
CPT/HCPCS: 36415; 80053; 82728; 85025

== ENCOUNTER → 2024-01-25 09:23 | Outpatient (REF) | payer OTHER, SELFPAY ==
[2024-01-25 11:09] LABS: % Basophils 0.9 % (0-2); % Eosinophils 0.6 % (0-6); % Lymphocytes 8.7 % (20.5-51.1); % Monocytes 7.5 % (1.7-9.3); % Neutrophils 81.3 % (42.2-75.2); Absolute Basophils 0.1 10^3/uL (0-0.2); Absolute Eosinophils 0.1 10^3/uL (0-0.7); Absolute Immature Granulocytes 0.1 10^3/uL (0-0.05); Absolute Monocytes 0.8 10^3/uL (0.1-0.6); Absolute Neutrophils 9.2 10^3/uL (1.4-6.5); Hematocrit 32.1 % (37.0-47.0); Hemoglobin 10.8 g/dL (12.0-16.0); Mean Corp Hgb Conc. 33.6 g/dL (33.0-37.0); Mean Corpuscular Hgb 32.1 pg (27.0-31.0); Mean Corpuscular Volume 95.5 fL (81.0-99.0); Mean Platelet Volume 10.8 fL (7.4-10.4); Nucleated Red Blood Cells % 0 %; Platelet Count 213 10^3/uL (130-400); Red Blood Cell Count 3.36 10^6/uL (4.20-5.40); Red Cell Dist. Width 14.2 % (11.5-14.5); White Blood Cell Count 11.3 10^3/uL (4.8-10.8)
[2024-01-25 12:12] LABS: ALT (SGPT) 17 U/L (0-35); AST (SGOT) 16 U/L (14-36); Albumin 3.9 g/dl (3.5-5.0); Alkaline Phosphatase 95 U/L (38-126); Blood Urea Nitrogen 11 mg/dl (7-17); Calcium 8.6 mg/dl (8.4-10.2); Carbon Dioxide 27 mmol/L (22-30); Chloride 98 mmol/L (98-107); Glucose 105 mg/dl (70-99); Potassium 3.6 mmol/L (3.5-5.1); Sodium 138 mmol/L (135-145); Total Bilirubin 0.5 mg/dl (0.2-1.3); eGFR > 60.00
== END ==
LOC: REG 09:23
PROVIDERS: ATTENDING PHYSICIAN Internal Medicine Hematology & Oncology; FAMILY PHYSICIAN Family Medicine
DX: C50.811 Malignant neoplasm of overlapping sites of right female breast (principal); C79.89 Secondary malignant neoplasm of other specified sites; G89.3 Neoplasm related pain (acute) (chronic)
CPT/HCPCS: 36415; 80053; 85025

== ENCOUNTER → 2024-02-01 10:19 | Outpatient (REF) | payer OTHER, SELFPAY ==
[2024-02-01 11:26] LABS: % Basophils 0.4 % (0-2); % Eosinophils 0.7 % (0-6); % Immature Granulocytes 0.6 % (0-0.5); % Lymphocytes 10.4 % (20.5-51.1); % Monocytes 3.5 % (1.7-9.3); % Neutrophils 84.4 % (42.2-75.2); Absolute Eosinophils 0.1 10^3/uL (0-0.7); Absolute Immature Granulocytes 0.1 10^3/uL (0-0.05); Absolute Monocytes 0.3 10^3/uL (0.1-0.6); Hematocrit 33.7 % (37.0-47.0); Hemoglobin 11.2 g/dL (12.0-16.0); Mean Corp Hgb Conc. 33.2 g/dL (33.0-37.0); Mean Corpuscular Hgb 32.1 pg (27.0-31.0); Mean Corpuscular Volume 96.6 fL (81.0-99.0); Mean Platelet Volume 11.3 fL (7.4-10.4); Nucleated Red Blood Cells % 0 %; Platelet Count 200 10^3/uL (130-400); Red Blood Cell Count 3.49 10^6/uL (4.20-5.40); Red Cell Dist. Width 13.8 % (11.5-14.5); White Blood Cell Count 9.4 10^3/uL (4.8-10.8)
[2024-02-01 11:52] LABS: ALT (SGPT) 19 U/L (0-35); AST (SGOT) 16 U/L (14-36); Alkaline Phosphatase 64 U/L (38-126); Blood Urea Nitrogen 15 mg/dl (7-17); Calcium 9.1 mg/dl (8.4-10.2); Carbon Dioxide 29 mmol/L (22-30); Chloride 100 mmol/L (98-107); Glucose 99 mg/dl (70-99); Potassium 3.6 mmol/L (3.5-5.1); Sodium 140 mmol/L (135-145); Total Bilirubin 0.7 mg/dl (0.2-1.3); Total Protein 6.4 g/dl (6.3-8.2); eGFR > 60.00
== END ==
LOC: REG 10:19
PROVIDERS: ATTENDING PHYSICIAN Internal Medicine Hematology & Oncology
DX: C50.811 Malignant neoplasm of overlapping sites of right female breast (principal); C79.89 Secondary malignant neoplasm of other specified sites; G89.3 Neoplasm related pain (acute) (chronic)
CPT/HCPCS: 36415; 80053; 85025

== ENCOUNTER → 2024-02-14 12:23 | Outpatient (REF) | payer OTHER, SELFPAY ==
[2024-02-14 13:36] LABS: % Basophils 0.5 % (0-2); % Eosinophils 0.7 % (0-6); % Immature Granulocytes 0.7 % (0-0.5); % Lymphocytes 9.1 % (20.5-51.1); Absolute Basophils 0.1 10^3/uL (0-0.2); Absolute Eosinophils 0.1 10^3/uL (0-0.7); Absolute Immature Granulocytes 0.1 10^3/uL (0-0.05); Absolute Monocytes 0.9 10^3/uL (0.1-0.6); Absolute Neutrophils 8.9 10^3/uL (1.4-6.5); Hematocrit 33.6 % (37.0-47.0); Hemoglobin 11.4 g/dL (12.0-16.0); Mean Corp Hgb Conc. 33.9 g/dL (33.0-37.0); Mean Corpuscular Hgb 33.4 pg (27.0-31.0); Mean Corpuscular Volume 98.5 fL (81.0-99.0); Mean Platelet Volume 10.9 fL (7.4-10.4); Nucleated Red Blood Cells % 0 %; Platelet Count 218 10^3/uL (130-400); Red Blood Cell Count 3.41 10^6/uL (4.20-5.40); Red Cell Dist. Width 14.2 % (11.5-14.5); White Blood Cell Count 10.9 10^3/uL (4.8-10.8)
[2024-02-14 14:18] LABS: ALT (SGPT) 20 U/L (0-35); AST (SGOT) 17 U/L (14-36); Albumin 4.2 g/dl (3.5-5.0); Alkaline Phosphatase 94 U/L (38-126); Blood Urea Nitrogen 9 mg/dl (7-17); Calcium 9.2 mg/dl (8.4-10.2); Carbon Dioxide 28 mmol/L (22-30); Chloride 101 mmol/L (98-107); Glucose 128 mg/dl (70-99); Potassium 3.5 mmol/L (3.5-5.1); Sodium 142 mmol/L (135-145); Total Bilirubin 0.4 mg/dl (0.2-1.3); Total Protein 6.2 g/dl (6.3-8.2); eGFR > 60.00
== END ==
LOC: REG 12:23
PROVIDERS: ATTENDING PHYSICIAN Internal Medicine Hematology & Oncology; FAMILY PHYSICIAN Family Medicine
DX: C50.811 Malignant neoplasm of overlapping sites of right female breast (principal); C79.89 Secondary malignant neoplasm of other specified sites; G89.3 Neoplasm related pain (acute) (chronic)
CPT/HCPCS: 36415; 80053; 85025

== ENCOUNTER → 2024-02-22 14:26 | Outpatient (REF) | payer OTHER, SELFPAY ==
[2024-02-22 16:38] LABS: % Basophils 0.8 % (0-2); % Eosinophils 1.3 % (0-6); % Immature Granulocytes 0.3 % (0-0.5); % Lymphocytes 18.4 % (20.5-51.1); % Monocytes 4.8 % (1.7-9.3); % Neutrophils 74.4 % (42.2-75.2); Absolute Basophils 0.1 10^3/uL (0-0.2); Absolute Eosinophils 0.1 10^3/uL (0-0.7); Absolute Lymphocytes 1.2 10^3/uL (1.2-3.4); Absolute Monocytes 0.3 10^3/uL (0.1-0.6); Absolute Neutrophils 4.7 10^3/uL (1.4-6.5); Hematocrit 33.7 % (37.0-47.0); Hemoglobin 11.4 g/dL (12.0-16.0); Mean Corp Hgb Conc. 33.8 g/dL (33.0-37.0); Mean Corpuscular Hgb 32.2 pg (27.0-31.0); Mean Corpuscular Volume 95.2 fL (81.0-99.0); Mean Platelet Volume 10.9 fL (7.4-10.4); Nucleated Red Blood Cells % 0 %; Platelet Count 218 10^3/uL (130-400); Red Blood Cell Count 3.54 10^6/uL (4.20-5.40); Red Cell Dist. Width 13.5 % (11.5-14.5); White Blood Cell Count 6.3 10^3/uL (4.8-10.8)
[2024-02-22 16:57] LABS: ALT (SGPT) 19 U/L (0-35); AST (SGOT) 14 U/L (14-36); Albumin 4.3 g/dl (3.5-5.0); Alkaline Phosphatase 67 U/L (38-126); Blood Urea Nitrogen 18 mg/dl (7-17); Calcium 9.1 mg/dl (8.4-10.2); Carbon Dioxide 28 mmol/L (22-30); Chloride 100 mmol/L (98-107); Glucose 101 mg/dl (70-99); Potassium 3.8 mmol/L (3.5-5.1); Sodium 140 mmol/L (135-145); Total Bilirubin 0.7 mg/dl (0.2-1.3); Total Protein 6.4 g/dl (6.3-8.2); eGFR > 60.00
== END ==
LOC: REG 14:26
PROVIDERS: ATTENDING PHYSICIAN Internal Medicine Hematology & Oncology; FAMILY PHYSICIAN Family Medicine
DX: C50.811 Malignant neoplasm of overlapping sites of right female breast (principal); C79.89 Secondary malignant neoplasm of other specified sites; G89.3 Neoplasm related pain (acute) (chronic)
CPT/HCPCS: 36415; 80053; 85025

== ENCOUNTER → 2024-03-07 12:14 | Outpatient (REF) | payer OTHER, SELFPAY ==
[2024-03-07 13:01] LABS: % Basophils 0.4 % (0-2); % Eosinophils 0.5 % (0-6); % Immature Granulocytes 1.1 % (0-0.5); % Lymphocytes 8.6 % (20.5-51.1); % Monocytes 5.1 % (1.7-9.3); % Neutrophils 84.3 % (42.2-75.2); Absolute Basophils 0.1 10^3/uL (0-0.2); Absolute Eosinophils 0.1 10^3/uL (0-0.7); Absolute Immature Granulocytes 0.1 10^3/uL (0-0.05); Absolute Monocytes 0.6 10^3/uL (0.1-0.6); Absolute Neutrophils 9.9 10^3/uL (1.4-6.5); Hematocrit 33.5 % (37.0-47.0); Hemoglobin 11.3 g/dL (12.0-16.0); Mean Corp Hgb Conc. 33.7 g/dL (33.0-37.0); Mean Corpuscular Hgb 33.4 pg (27.0-31.0); Mean Corpuscular Volume 99.1 fL (81.0-99.0); Mean Platelet Volume 11.3 fL (7.4-10.4); Nucleated Red Blood Cells % 0 %; Platelet Count 200 10^3/uL (130-400); Red Blood Cell Count 3.38 10^6/uL (4.20-5.40); Red Cell Dist. Width 14.4 % (11.5-14.5); White Blood Cell Count 11.7 10^3/uL (4.8-10.8)
[2024-03-07 14:56] LABS: ALT (SGPT) 22 U/L (0-35); AST (SGOT) 24 U/L (14-36); Albumin 4.1 g/dl (3.5-5.0); Alkaline Phosphatase 102 U/L (38-126); Blood Urea Nitrogen 12 mg/dl (7-17); Calcium 9.5 mg/dl (8.4-10.2); Carbon Dioxide 26 mmol/L (22-30); Chloride 103 mmol/L (98-107); Glucose 153 mg/dl (70-99); Sodium 141 mmol/L (135-145); Total Bilirubin 0.5 mg/dl (0.2-1.3); Total Protein 6.3 g/dl (6.3-8.2); eGFR > 60.00
[2024-03-07 15:02] LABS: Potassium 3.9 mmol/L (3.5-5.1)
== END ==
LOC: REG 12:14
PROVIDERS: ATTENDING PHYSICIAN Internal Medicine Hematology & Oncology; FAMILY PHYSICIAN Family Medicine
DX: C50.811 Malignant neoplasm of overlapping sites of right female breast (principal); C79.89 Secondary malignant neoplasm of other specified sites; G89.3 Neoplasm related pain (acute) (chronic)
CPT/HCPCS: 36415; 80053; 85025

== ENCOUNTER → 2024-03-21 12:58 | Outpatient (REF) | payer OTHER, SELFPAY ==
[2024-03-21 14:03] LABS: % Basophils 0.6 % (0-2); % Eosinophils 0.4 % (0-6); % Immature Granulocytes 1.6 % (0-0.5); % Lymphocytes 7.8 % (20.5-51.1); % Monocytes 5.6 % (1.7-9.3); Absolute Basophils 0.1 10^3/uL (0-0.2); Absolute Eosinophils 0.1 10^3/uL (0-0.7); Absolute Immature Granulocytes 0.3 10^3/uL (0-0.05); Absolute Lymphocytes 1.2 10^3/uL (1.2-3.4); Absolute Monocytes 0.9 10^3/uL (0.1-0.6); Absolute Neutrophils 13.3 10^3/uL (1.4-6.5); Hematocrit 36.2 % (37.0-47.0); Hemoglobin 11.6 g/dL (12.0-16.0); Mean Corpuscular Hgb 32.4 pg (27.0-31.0); Mean Corpuscular Volume 101.1 fL (81.0-99.0); Nucleated Red Blood Cells % 0 %; Platelet Count 198 10^3/uL (130-400); Red Blood Cell Count 3.58 10^6/uL (4.20-5.40); Red Cell Dist. Width 14.3 % (11.5-14.5); White Blood Cell Count 15.8 10^3/uL (4.8-10.8)
[2024-03-21 14:23] LABS: ALT (SGPT) 18 U/L (0-35); AST (SGOT) 18 U/L (14-36); Albumin 4.2 g/dl (3.5-5.0); Alkaline Phosphatase 123 U/L (38-126); Blood Urea Nitrogen 16 mg/dl (7-17); Calcium 8.9 mg/dl (8.4-10.2); Carbon Dioxide 27 mmol/L (22-30); Chloride 99 mmol/L (98-107); Glucose 111 mg/dl (70-99); Potassium 3.9 mmol/L (3.5-5.1); Sodium 138 mmol/L (135-145); Total Bilirubin 0.6 mg/dl (0.2-1.3); Total Protein 6.2 g/dl (6.3-8.2); eGFR > 60.00
== END ==
LOC: REG 12:58
PROVIDERS: ATTENDING PHYSICIAN Internal Medicine Hematology & Oncology; FAMILY PHYSICIAN Family Medicine
DX: C50.811 Malignant neoplasm of overlapping sites of right female breast (principal); C79.89 Secondary malignant neoplasm of other specified sites; G89.3 Neoplasm related pain (acute) (chronic)
CPT/HCPCS: 36415; 80053; 85025

== ENCOUNTER → 2024-04-03 13:27 | Outpatient (REF) | payer OTHER, SELFPAY ==
[2024-04-03 14:17] LABS: % Basophils 0.5 % (0-2); % Eosinophils 0.8 % (0-6); % Immature Granulocytes 0.8 % (0-0.5); % Lymphocytes 9.1 % (20.5-51.1); % Monocytes 8.1 % (1.7-9.3); % Neutrophils 80.7 % (42.2-75.2); Absolute Basophils 0.1 10^3/uL (0-0.2); Absolute Eosinophils 0.1 10^3/uL (0-0.7); Absolute Immature Granulocytes 0.1 10^3/uL (0-0.05); Absolute Lymphocytes 1.4 10^3/uL (1.2-3.4); Absolute Monocytes 1.3 10^3/uL (0.1-0.6); Absolute Neutrophils 12.6 10^3/uL (1.4-6.5); Hematocrit 34.3 % (37.0-47.0); Hemoglobin 11.5 g/dL (12.0-16.0); Mean Corp Hgb Conc. 33.5 g/dL (33.0-37.0); Mean Corpuscular Hgb 32.7 pg (27.0-31.0); Mean Corpuscular Volume 97.4 fL (81.0-99.0); Mean Platelet Volume 11.1 fL (7.4-10.4); Nucleated Red Blood Cells % 0 %; Platelet Count 192 10^3/uL (130-400); Red Blood Cell Count 3.52 10^6/uL (4.20-5.40); Red Cell Dist. Width 13.8 % (11.5-14.5); White Blood Cell Count 15.6 10^3/uL (4.8-10.8)
[2024-04-03 14:47] LABS: ALT (SGPT) 16 U/L (0-35); AST (SGOT) 17 U/L (14-36); Albumin 4.1 g/dl (3.5-5.0); Alkaline Phosphatase 111 U/L (38-126); Blood Urea Nitrogen 12 mg/dl (7-17); Calcium 8.9 mg/dl (8.4-10.2); Carbon Dioxide 29 mmol/L (22-30); Chloride 100 mmol/L (98-107); Glucose 105 mg/dl (70-99); Potassium 3.7 mmol/L (3.5-5.1); Sodium 138 mmol/L (135-145); Total Bilirubin 0.5 mg/dl (0.2-1.3); Total Protein 6.2 g/dl (6.3-8.2); eGFR > 60.00
== END ==
LOC: REG 13:27
PROVIDERS: ATTENDING PHYSICIAN Internal Medicine Hematology & Oncology; FAMILY PHYSICIAN Family Medicine
DX: C50.811 Malignant neoplasm of overlapping sites of right female breast (principal); C79.89 Secondary malignant neoplasm of other specified sites; G89.3 Neoplasm related pain (acute) (chronic)
CPT/HCPCS: 36415; 80053; 85025

== ENCOUNTER → 2024-04-18 09:42 | Outpatient (REF) | payer OTHER, SELFPAY ==
[2024-04-18 10:55] LABS: % Basophils 0.4 % (0-2); % Eosinophils 0.6 % (0-6); % Immature Granulocytes 0.8 % (0-0.5); % Lymphocytes 7.9 % (20.5-51.1); % Monocytes 6.7 % (1.7-9.3); % Neutrophils 83.6 % (42.2-75.2); Absolute Basophils 0.1 10^3/uL (0-0.2); Absolute Eosinophils 0.1 10^3/uL (0-0.7); Absolute Immature Granulocytes 0.1 10^3/uL (0-0.05); Absolute Lymphocytes 1.1 10^3/uL (1.2-3.4); Absolute Monocytes 0.9 10^3/uL (0.1-0.6); Absolute Neutrophils 11.7 10^3/uL (1.4-6.5); Hematocrit 33.3 % (37.0-47.0); Hemoglobin 11.4 g/dL (12.0-16.0); Mean Corp Hgb Conc. 34.2 g/dL (33.0-37.0); Mean Corpuscular Hgb 32.9 pg (27.0-31.0); Mean Platelet Volume 11.4 fL (7.4-10.4); Nucleated Red Blood Cells % 0 %; Platelet Count 198 10^3/uL (130-400); Red Blood Cell Count 3.47 10^6/uL (4.20-5.40); Red Cell Dist. Width 13.8 % (11.5-14.5); White Blood Cell Count 14.1 10^3/uL (4.8-10.8)
[2024-04-18 12:24] LABS: ALT (SGPT) 17 U/L (0-35); AST (SGOT) 17 U/L (14-36); Albumin 4.1 g/dl (3.5-5.0); Alkaline Phosphatase 115 U/L (38-126); Blood Urea Nitrogen 10 mg/dl (7-17); Calcium 8.5 mg/dl (8.4-10.2); Carbon Dioxide 26 mmol/L (22-30); Chloride 98 mmol/L (98-107); Glucose 113 mg/dl (70-99); Potassium 3.8 mmol/L (3.5-5.1); Sodium 136 mmol/L (135-145); Total Bilirubin 0.4 mg/dl (0.2-1.3); Total Protein 6.2 g/dl (6.3-8.2); eGFR > 60.00
== END ==
LOC: REG 09:42
PROVIDERS: ATTENDING PHYSICIAN Internal Medicine Hematology & Oncology; FAMILY PHYSICIAN Family Medicine
DX: C50.811 Malignant neoplasm of overlapping sites of right female breast (principal); C79.89 Secondary malignant neoplasm of other specified sites; G89.3 Neoplasm related pain (acute) (chronic)
CPT/HCPCS: 36415; 80053; 85025

== ENCOUNTER → 2024-04-20 09:06 | Outpatient (REF) | payer OTHER, SELFPAY ==
[2024-04-20 09:55] LABS: % Basophils 0.6 % (0-2); % Eosinophils 0.8 % (0-6); % Immature Granulocytes 0.6 % (0-0.5); % Lymphocytes 8.4 % (20.5-51.1); % Monocytes 5.9 % (1.7-9.3); % Neutrophils 83.7 % (42.2-75.2); Absolute Basophils 0.1 10^3/uL (0-0.2); Absolute Eosinophils 0.1 10^3/uL (0-0.7); Absolute Immature Granulocytes 0.1 10^3/uL (0-0.05); Absolute Lymphocytes 0.7 10^3/uL (1.2-3.4); Absolute Monocytes 0.5 10^3/uL (0.1-0.6); Absolute Neutrophils 7.1 10^3/uL (1.4-6.5); Hematocrit 38.5 % (37.0-47.0); Hemoglobin 12.4 g/dL (12.0-16.0); Mean Corp Hgb Conc. 32.2 g/dL (33.0-37.0); Mean Corpuscular Hgb 31.6 pg (27.0-31.0); Mean Platelet Volume 11.3 fL (7.4-10.4); Nucleated Red Blood Cells % 0 %; Platelet Count 209 10^3/uL (130-400); Red Blood Cell Count 3.93 10^6/uL (4.20-5.40); Red Cell Dist. Width 13.8 % (11.5-14.5); White Blood Cell Count 8.5 10^3/uL (4.8-10.8)
[2024-04-20 10:55] LABS: ALT (SGPT) 19 U/L (0-35); AST (SGOT) 17 U/L (14-36); Albumin 4.5 g/dl (3.5-5.0); Alkaline Phosphatase 115 U/L (38-126); Blood Urea Nitrogen 12 mg/dl (7-17); Calcium 9.6 mg/dl (8.4-10.2); Carbon Dioxide 30 mmol/L (22-30); Chloride 99 mmol/L (98-107); Glucose 149 mg/dl (70-99); HDL Cholesterol 62 mg/dl; LDL Cholesterol, Calculated 45 mg/dl; Sodium 138 mmol/L (135-145); Total Bilirubin 0.6 mg/dl (0.2-1.3); Total Cholesterol 135 mg/dl (50-199); Total Protein 6.7 g/dl (6.3-8.2); Triglyceride 141 mg/dl (10-149); Very Low Density Lipoprotein 28 mg/dl (0-30); eGFR > 60.00
[2024-04-20 11:48] LABS: Glycohemoglobin (HgbA1c) 5.9 % (4.0-5.6)
== END ==
LOC: REG 09:06
PROVIDERS: ATTENDING PHYSICIAN Family Medicine
DX: E11.9 Type 2 diabetes mellitus without complications (principal); D64.9 Anemia, unspecified; E78.00 Pure hypercholesterolemia, unspecified
CPT/HCPCS: 36415; 80053; 80061; 82728; 83036; 85025

== ENCOUNTER → 2024-05-02 11:57 | Outpatient (REF) | payer OTHER, SELFPAY ==
[2024-05-02 12:54] LABS: % Basophils 0.6 % (0-2); % Eosinophils 0.9 % (0-6); % Immature Granulocytes 0.9 % (0-0.5); % Lymphocytes 9.2 % (20.5-51.1); % Monocytes 5.9 % (1.7-9.3); % Neutrophils 82.5 % (42.2-75.2); Absolute Basophils 0.1 10^3/uL (0-0.2); Absolute Eosinophils 0.1 10^3/uL (0-0.7); Absolute Immature Granulocytes 0.1 10^3/uL (0-0.05); Absolute Lymphocytes 1.3 10^3/uL (1.2-3.4); Absolute Monocytes 0.8 10^3/uL (0.1-0.6); Absolute Neutrophils 11.2 10^3/uL (1.4-6.5); Hematocrit 34.1 % (37.0-47.0); Hemoglobin 11.3 g/dL (12.0-16.0); Mean Corp Hgb Conc. 33.1 g/dL (33.0-37.0); Mean Corpuscular Hgb 32.5 pg (27.0-31.0); Mean Platelet Volume 11.4 fL (7.4-10.4); Nucleated Red Blood Cells % 0 %; Platelet Count 195 10^3/uL (130-400); Red Blood Cell Count 3.48 10^6/uL (4.20-5.40); Red Cell Dist. Width 13.9 % (11.5-14.5); White Blood Cell Count 13.6 10^3/uL (4.8-10.8)
[2024-05-02 13:16] LABS: ALT (SGPT) 17 U/L (0-35); AST (SGOT) 17 U/L (14-36); Albumin 4.1 g/dl (3.5-5.0); Alkaline Phosphatase 124 U/L (38-126); Blood Urea Nitrogen 10 mg/dl (7-17); Calcium 8.9 mg/dl (8.4-10.2); Carbon Dioxide 27 mmol/L (22-30); Chloride 100 mmol/L (98-107); Glucose 126 mg/dl (70-99); Sodium 137 mmol/L (135-145); Total Bilirubin 0.6 mg/dl (0.2-1.3); Total Protein 6.2 g/dl (6.3-8.2); eGFR > 60.00
== END ==
LOC: REG 11:57
PROVIDERS: ATTENDING PHYSICIAN Internal Medicine Hematology & Oncology; FAMILY PHYSICIAN Family Medicine
DX: C50.811 Malignant neoplasm of overlapping sites of right female breast (principal); C79.89 Secondary malignant neoplasm of other specified sites; G89.3 Neoplasm related pain (acute) (chronic); D50.9 Iron deficiency anemia, unspecified
CPT/HCPCS: 36415; 80053; 85025

== ENCOUNTER → 2024-05-17 12:58 | Outpatient (REF) | payer OTHER, SELFPAY ==
[2024-05-17 14:25] LABS: % Basophils 0.4 % (0-2); % Eosinophils 0.3 % (0-6); % Immature Granulocytes 0.6 % (0-0.5); % Lymphocytes 7.9 % (20.5-51.1); % Neutrophils 85.8 % (42.2-75.2); Absolute Basophils 0.1 10^3/uL (0-0.2); Absolute Immature Granulocytes 0.1 10^3/uL (0-0.05); Absolute Lymphocytes 0.9 10^3/uL (1.2-3.4); Absolute Monocytes 0.6 10^3/uL (0.1-0.6); Absolute Neutrophils 9.9 10^3/uL (1.4-6.5); Hematocrit 33.3 % (37.0-47.0); Hemoglobin 11.1 g/dL (12.0-16.0); Mean Corp Hgb Conc. 33.3 g/dL (33.0-37.0); Mean Corpuscular Hgb 32.5 pg (27.0-31.0); Mean Corpuscular Volume 97.4 fL (81.0-99.0); Mean Platelet Volume 11.8 fL (7.4-10.4); Nucleated Red Blood Cells % 0 %; Platelet Count 176 10^3/uL (130-400); Red Blood Cell Count 3.42 10^6/uL (4.20-5.40); Red Cell Dist. Width 13.6 % (11.5-14.5); White Blood Cell Count 11.5 10^3/uL (4.8-10.8)
[2024-05-17 15:36] LABS: ALT (SGPT) 15 U/L (0-35); AST (SGOT) 16 U/L (14-36); Albumin 3.8 g/dl (3.5-5.0); Alkaline Phosphatase 117 U/L (38-126); Blood Urea Nitrogen 10 mg/dl (7-17); Calcium 8.9 mg/dl (8.4-10.2); Carbon Dioxide 29 mmol/L (22-30); Chloride 103 mmol/L (98-107); Glucose 118 mg/dl (70-99); Potassium 3.8 mmol/L (3.5-5.1); Sodium 140 mmol/L (135-145); Total Bilirubin 0.7 mg/dl (0.2-1.3); Total Protein 5.9 g/dl (6.3-8.2); eGFR > 60.00
== END ==
LOC: REG 12:58
PROVIDERS: ATTENDING PHYSICIAN Internal Medicine Cardiovascular Disease; FAMILY PHYSICIAN Family Medicine; OTHER PHYSICIAN Internal Medicine Hematology & Oncology
DX: R06.09 Other forms of dyspnea (principal); I10 Essential (primary) hypertension; E78.2 Mixed hyperlipidemia; G47.33 Obstructive sleep apnea (adult) (pediatric); E11.9 Type 2 diabetes mellitus without complications; Z17.1 Estrogen receptor negative status [ER-]; C50.919 Malignant neoplasm of unspecified site of unspecified female breast; T45.1X5A Adverse effect of antineoplastic and immunosuppressive drugs, initial encounter; C50.811 Malignant neoplasm of overlapping sites of right female breast; C79.89 Secondary malignant neoplasm of other specified sites; G89.3 Neoplasm related pain (acute) (chronic); D50.9 Iron deficiency anemia, unspecified
CPT/HCPCS: 36415; 80053; 85025

== ENCOUNTER → 2024-06-20 11:17 | Outpatient (REF) | payer OTHER, SELFPAY ==
[2024-06-20 12:59] LABS: % Basophils 0.8 % (0-2); % Eosinophils 1.8 % (0-6); % Immature Granulocytes 0.2 % (0-0.5); % Lymphocytes 13.9 % (20.5-51.1); % Monocytes 10.4 % (1.7-9.3); % Neutrophils 72.9 % (42.2-75.2); Absolute Eosinophils 0.1 10^3/uL (0-0.7); Absolute Lymphocytes 0.7 10^3/uL (1.2-3.4); Absolute Monocytes 0.5 10^3/uL (0.1-0.6); Absolute Neutrophils 3.6 10^3/uL (1.4-6.5); Hematocrit 35.8 % (37.0-47.0); Hemoglobin 11.9 g/dL (12.0-16.0); Mean Corp Hgb Conc. 33.2 g/dL (33.0-37.0); Mean Corpuscular Hgb 31.3 pg (27.0-31.0); Mean Corpuscular Volume 94.2 fL (81.0-99.0); Mean Platelet Volume 11.1 fL (7.4-10.4); Nucleated Red Blood Cells % 0 %; Platelet Count 231 10^3/uL (130-400); Red Cell Dist. Width 12.8 % (11.5-14.5); White Blood Cell Count 4.9 10^3/uL (4.8-10.8)
[2024-06-20 13:13] LABS: ALT (SGPT) 17 U/L (0-35); AST (SGOT) 16 U/L (14-36); Alkaline Phosphatase 103 U/L (38-126); Blood Urea Nitrogen 14 mg/dl (7-17); Calcium 9.1 mg/dl (8.4-10.2); Carbon Dioxide 27 mmol/L (22-30); Chloride 102 mmol/L (98-107); Glucose 113 mg/dl (70-99); Sodium 137 mmol/L (135-145); Total Protein 6.5 g/dl (6.3-8.2); eGFR > 60.00
== END ==
LOC: REG 11:17
PROVIDERS: ATTENDING PHYSICIAN Internal Medicine Hematology & Oncology; FAMILY PHYSICIAN Family Medicine
DX: C50.811 Malignant neoplasm of overlapping sites of right female breast (principal); C79.89 Secondary malignant neoplasm of other specified sites; G89.3 Neoplasm related pain (acute) (chronic); D50.9 Iron deficiency anemia, unspecified
CPT/HCPCS: 36415; 80053; 85025

== ENCOUNTER → 2024-07-04 10:36 | Outpatient (REF) | payer OTHER, SELFPAY ==
[2024-07-04 11:56] LABS: % Basophils 0.8 % (0-2); % Eosinophils 0.7 % (0-6); % Immature Granulocytes 0.7 % (0-0.5); % Monocytes 5.4 % (1.7-9.3); % Neutrophils 84.4 % (42.2-75.2); Absolute Basophils 0.1 10^3/uL (0-0.2); Absolute Eosinophils 0.1 10^3/uL (0-0.7); Absolute Immature Granulocytes 0.1 10^3/uL (0-0.05); Absolute Lymphocytes 0.8 10^3/uL (1.2-3.4); Absolute Monocytes 0.6 10^3/uL (0.1-0.6); Absolute Neutrophils 8.7 10^3/uL (1.4-6.5); Hematocrit 35.5 % (37.0-47.0); Hemoglobin 11.9 g/dL (12.0-16.0); Mean Corp Hgb Conc. 33.5 g/dL (33.0-37.0); Mean Corpuscular Hgb 31.7 pg (27.0-31.0); Mean Corpuscular Volume 94.7 fL (81.0-99.0); Nucleated Red Blood Cells % 0 %; Platelet Count 162 10^3/uL (130-400); Red Blood Cell Count 3.75 10^6/uL (4.20-5.40); Red Cell Dist. Width 13.3 % (11.5-14.5); White Blood Cell Count 10.3 10^3/uL (4.8-10.8)
[2024-07-04 12:19] LABS: ALT (SGPT) 18 U/L (0-35); AST (SGOT) 15 U/L (14-36); Alkaline Phosphatase 129 U/L (38-126); Blood Urea Nitrogen 13 mg/dl (7-17); Calcium 8.9 mg/dl (8.4-10.2); Carbon Dioxide 26 mmol/L (22-30); Chloride 100 mmol/L (98-107); Glucose 197 mg/dl (70-99); Potassium 3.3 mmol/L (3.5-5.1); Sodium 137 mmol/L (135-145); Total Bilirubin 0.5 mg/dl (0.2-1.3); Total Protein 6.1 g/dl (6.3-8.2); Uric Acid 7.1 mg/dl (2.5-6.2); eGFR > 60.00
[2024-07-04 12:22] LABS: C-Reactive Protein < 5.00 mg/L (0.0-10.00)
[2024-07-04 12:40] LABS: Vitamin D, 25-OH*** 60.3 ng/mL (30-80)
[2024-07-04 12:55] LABS: Cortisol, Random 8.2 ug/dl; TSH 1.67 uIU/ml (0.47-4.68)
[2024-07-05 11:36] LABS: Intact PTH 211.1 pg/ml (13.6-85.8)
[2024-07-05 14:10] LABS: tTG IgA Antibody <1.02 FLU (0.00-4.99)
[2024-07-05 16:48] LABS: Endomysial IgA Antibody Titer <1:10 (<1:10)
[2024-07-05 20:23] LABS: CCP Antibody IgG/IgA 4 Units (0-19)
[2024-07-05 23:03] LABS: CTx 637 pg/mL
[2024-07-05 23:42] LABS: IgA 158 mg/dl (70-400)
[2024-07-06 12:25] LABS: Rheumatoid Agglutinin Less Than 10 IU (<10 IU)
[2024-07-06 14:37] LABS: Lyme Antibody Screen, EIA Negative (Negative)
== END ==
LOC: REG 10:36
PROVIDERS: ATTENDING PHYSICIAN Internal Medicine Hematology & Oncology; FAMILY PHYSICIAN Internal Medicine Rheumatology; REFERRING PHYSICIAN Family Medicine
DX: C50.811 Malignant neoplasm of overlapping sites of right female breast (principal); C79.89 Secondary malignant neoplasm of other specified sites; G89.3 Neoplasm related pain (acute) (chronic); D50.9 Iron deficiency anemia, unspecified; E03.9 Hypothyroidism, unspecified; E11.9 Type 2 diabetes mellitus without complications; E55.9 Vitamin D deficiency, unspecified; K90.0 Celiac disease; M15.9 Polyosteoarthritis, unspecified; M19.021 Primary osteoarthritis, right elbow; M48.061 Spinal stenosis, lumbar region without neurogenic claudication; M81.0 Age-related osteoporosis without current pathological fracture; R29.898 Other symptoms and signs involving the musculoskeletal system
CPT/HCPCS: 36415; 73080; 80053; 82306; 82523; 82533; 82784; 83516; 83970; 84155; 84165; 84443; 84550; 85025; 86140; 86200; 86231; 86430; 86618

== ENCOUNTER → 2024-07-18 11:03 | Outpatient (REF) | payer OTHER, SELFPAY ==
[2024-07-18 12:06] LABS: % Basophils 0.4 % (0-2); % Eosinophils 0.6 % (0-6); % Immature Granulocytes 1.5 % (0-0.5); % Lymphocytes 7.1 % (20.5-51.1); % Monocytes 6.5 % (1.7-9.3); % Neutrophils 83.9 % (42.2-75.2); Absolute Basophils 0.1 10^3/uL (0-0.2); Absolute Eosinophils 0.1 10^3/uL (0-0.7); Absolute Immature Granulocytes 0.2 10^3/uL (0-0.05); Absolute Monocytes 0.9 10^3/uL (0.1-0.6); Absolute Neutrophils 11.5 10^3/uL (1.4-6.5); Hematocrit 36.4 % (37.0-47.0); Hemoglobin 12.1 g/dL (12.0-16.0); Mean Corp Hgb Conc. 33.2 g/dL (33.0-37.0); Mean Corpuscular Hgb 31.4 pg (27.0-31.0); Mean Corpuscular Volume 94.5 fL (81.0-99.0); Mean Platelet Volume 10.7 fL (7.4-10.4); Nucleated Red Blood Cells % 0 %; Platelet Count 232 10^3/uL (130-400); Red Blood Cell Count 3.85 10^6/uL (4.20-5.40); Red Cell Dist. Width 13.9 % (11.5-14.5); White Blood Cell Count 13.7 10^3/uL (4.8-10.8)
[2024-07-18 12:46] LABS: ALT (SGPT) 16 U/L (0-35); AST (SGOT) 16 U/L (14-36); Albumin 4.5 g/dl (3.5-5.0); Alkaline Phosphatase 131 U/L (38-126); Blood Urea Nitrogen 9 mg/dl (7-17); C-Reactive Protein < 5.00 mg/L (0.0-10.00); Calcium 9.4 mg/dl (8.4-10.2); Carbon Dioxide 30 mmol/L (22-30); Chloride 101 mmol/L (98-107); Glucose 114 mg/dl (70-99); Potassium 3.9 mmol/L (3.5-5.1); Sodium 141 mmol/L (135-145); Total Bilirubin 0.7 mg/dl (0.2-1.3); Total Protein 6.7 g/dl (6.3-8.2); eGFR > 60.00
[2024-07-18 12:47] LABS: Uric Acid 7.3 mg/dl (2.5-6.2)
[2024-07-18 13:04] LABS: Vitamin D, 25-OH*** 63.4 ng/mL (30-80)
[2024-07-18 13:17] LABS: Cortisol, Random 7.6 ug/dl; TSH 1.78 uIU/ml (0.47-4.68)
[2024-07-18 14:08] LABS: 24 Hour Urine Total Volume 3600 ml
[2024-07-18 14:36] LABS: 24 Hour Urine Calcium 61.2 mg/day; Urine Calcium 1.7 mg/dl
[2024-07-19 08:51] LABS: Intact PTH 268.1 pg/ml (13.6-85.8)
[2024-07-19 15:02] LABS: Lyme Antibody Screen, EIA Negative (Negative); Rheumatoid Agglutinin Less Than 10 IU (<10 IU)
[2024-07-20 04:43] LABS: IgA 160 mg/dl (70-400)
[2024-07-20 16:06] LABS: Endomysial IgA Antibody Titer <1:10 (<1:10)
[2024-07-20 18:10] LABS: CTx 608 pg/mL
[2024-07-20 18:38] LABS: tTG IgA Antibody <1.02 FLU (0.00-4.99)
[2024-07-20 21:10] LABS: CCP Antibody IgG/IgA 4 Units (0-19)
== END ==
LOC: REG 11:03
PROVIDERS: ATTENDING PHYSICIAN Internal Medicine Hematology & Oncology; FAMILY PHYSICIAN Family Medicine; REFERRING PHYSICIAN Internal Medicine Rheumatology
DX: E03.9 Hypothyroidism, unspecified (principal); E11.9 Type 2 diabetes mellitus without complications; E55.9 Vitamin D deficiency, unspecified; K90.0 Celiac disease; M15.9 Polyosteoarthritis, unspecified; M19.021 Primary osteoarthritis, right elbow; M48.061 Spinal stenosis, lumbar region without neurogenic claudication; M81.0 Age-related osteoporosis without current pathological fracture; R29.898 Other symptoms and signs involving the musculoskeletal system; C50.811 Malignant neoplasm of overlapping sites of right female breast; C79.89 Secondary malignant neoplasm of other specified sites; G89.3 Neoplasm related pain (acute) (chronic); D50.9 Iron deficiency anemia, unspecified
CPT/HCPCS: 36415; 80053; 81050; 82306; 82340; 82523; 82533; 82784; 83516; 83970; 84155; 84165; 84443; 84550; 85025; 86140; 86200; 86231; 86430; 86618

== ENCOUNTER → 2024-07-24 15:00 | Outpatient (REF) | payer OTHER, SELFPAY | LOC: RCS 15:00 | PROVIDERS: ATTENDING PHYSICIAN Internal Medicine Cardiovascular Disease; FAMILY PHYSICIAN Family Medicine | DX: R06.09 Other forms of dyspnea (principal); I10 Essential (primary) hypertension; T45.1X5A Adverse effect of antineoplastic and immunosuppressive drugs, initial encounter | CPT/HCPCS: 93306; 93356 ==

== ENCOUNTER → 2024-08-01 09:24 | Outpatient (REF) | payer OTHER, SELFPAY ==
[2024-08-01 10:53] LABS: Hematocrit 32.2 % (37.0-47.0); Hemoglobin 10.9 g/dL (12.0-16.0); Mean Corp Hgb Conc. 33.9 g/dL (33.0-37.0); Mean Corpuscular Hgb 31.5 pg (27.0-31.0); Mean Corpuscular Volume 93.1 fL (81.0-99.0); Mean Platelet Volume 10.8 fL (7.4-10.4); Platelet Count 203 10^3/uL (130-400); Red Blood Cell Count 3.46 10^6/uL (4.20-5.40); Red Cell Dist. Width 14.6 % (11.5-14.5); White Blood Cell Count 23.2 10^3/uL (4.8-10.8)
[2024-08-01 11:24] LABS: % Basophils 0.5 % (0-2); % Immature Granulocytes 2.1 % (0-0.5); % Lymphocytes 2.5 % (20.5-51.1); % Monocytes 2.3 % (1.7-9.3); % Neutrophils 92.6 % (42.2-75.2); Absolute Basophils 0.1 10^3/uL (0-0.2); Absolute Immature Granulocytes 0.5 10^3/uL (0-0.05); Absolute Lymphocytes 0.6 10^3/uL (1.2-3.4); Absolute Monocytes 0.5 10^3/uL (0.1-0.6); Absolute Neutrophils 21.4 10^3/uL (1.4-6.5); Nucleated Red Blood Cells % 0 %
[2024-08-01 12:42] LABS: ALT (SGPT) 16 U/L (0-35); AST (SGOT) 16 U/L (14-36); Albumin 4.1 g/dl (3.5-5.0); Alkaline Phosphatase 133 U/L (38-126); Blood Urea Nitrogen 17 mg/dl (7-17); Calcium 9.4 mg/dl (8.4-10.2); Carbon Dioxide 26 mmol/L (22-30); Chloride 99 mmol/L (98-107); Glucose 141 mg/dl (70-99); Potassium 4.1 mmol/L (3.5-5.1); Sodium 135 mmol/L (135-145); Total Bilirubin 0.6 mg/dl (0.2-1.3); Total Protein 6.4 g/dl (6.3-8.2); eGFR > 60.00
== END ==
LOC: REG 09:24
PROVIDERS: ATTENDING PHYSICIAN Internal Medicine Hematology & Oncology; FAMILY PHYSICIAN Family Medicine
DX: C50.811 Malignant neoplasm of overlapping sites of right female breast (principal); C79.89 Secondary malignant neoplasm of other specified sites; G89.3 Neoplasm related pain (acute) (chronic); D50.9 Iron deficiency anemia, unspecified
CPT/HCPCS: 36415; 80053; 85025

== ENCOUNTER 2024-08-14 06:22 | Day surgery (SDC) | payer OTHER, SELFPAY ==
[2024-08-14 07:26] LABS: Glucose - Point of Care 137 mg/dl (70-99)
== END 2024-08-14 08:45 | disposition home or self-care (01) ==
LOC: GI 06:22
PROVIDERS: ATTENDING PHYSICIAN Internal Medicine Gastroenterology
DX: Z12.11 Encounter for screening for malignant neoplasm of colon (principal); Z80.0 Family history of malignant neoplasm of digestive organs
CPT/HCPCS: G0105; 82962

== ENCOUNTER → 2024-08-22 13:04 | Outpatient (REF) | payer OTHER, SELFPAY ==
[2024-08-22 14:30] LABS: % Basophils 0.4 % (0-2); % Eosinophils 0.7 % (0-6); % Immature Granulocytes 0.3 % (0-0.5); % Lymphocytes 10.7 % (20.5-51.1); % Monocytes 7.2 % (1.7-9.3); % Neutrophils 80.7 % (42.2-75.2); Absolute Eosinophils 0.1 10^3/uL (0-0.7); Absolute Lymphocytes 0.7 10^3/uL (1.2-3.4); Absolute Monocytes 0.5 10^3/uL (0.1-0.6); Absolute Neutrophils 5.5 10^3/uL (1.4-6.5); Hematocrit 34.5 % (37.0-47.0); Hemoglobin 11.8 g/dL (12.0-16.0); Mean Corp Hgb Conc. 34.2 g/dL (33.0-37.0); Mean Corpuscular Hgb 32.1 pg (27.0-31.0); Mean Corpuscular Volume 93.8 fL (81.0-99.0); Mean Platelet Volume 10.9 fL (7.4-10.4); Nucleated Red Blood Cells % 0 %; Platelet Count 209 10^3/uL (130-400); Red Blood Cell Count 3.68 10^6/uL (4.20-5.40); Red Cell Dist. Width 14.7 % (11.5-14.5); White Blood Cell Count 6.8 10^3/uL (4.8-10.8)
[2024-08-22 15:00] LABS: Calcium 9.2 mg/dl (8.4-10.2)
[2024-08-22 15:22] LABS: ALT (SGPT) 14 U/L (0-35); AST (SGOT) 15 U/L (14-36); Albumin 3.9 g/dl (3.5-5.0); Alkaline Phosphatase 84 U/L (38-126); Blood Urea Nitrogen 14 mg/dl (7-17); Calcium 9.2 mg/dl (8.4-10.2); Carbon Dioxide 26 mmol/L (22-30); Chloride 103 mmol/L (98-107); Glucose 137 mg/dl (70-99); Phosphorus 3.7 mg/dl (2.5-4.5); Potassium 3.8 mmol/L (3.5-5.1); Sodium 138 mmol/L (135-145); Total Bilirubin 0.6 mg/dl (0.2-1.3); Total Protein 6.1 g/dl (6.3-8.2); eGFR > 60.00
[2024-08-23 12:27] LABS: Intact PTH 155.3 pg/ml (13.6-85.8)
== END ==
LOC: REG 13:04
PROVIDERS: ATTENDING PHYSICIAN Internal Medicine Hematology & Oncology; FAMILY PHYSICIAN Family Medicine; OTHER PHYSICIAN Internal Medicine Rheumatology
DX: C50.811 Malignant neoplasm of overlapping sites of right female breast (principal); C79.89 Secondary malignant neoplasm of other specified sites; D50.9 Iron deficiency anemia, unspecified; E21.3 Hyperparathyroidism, unspecified; M15.9 Polyosteoarthritis, unspecified; M81.0 Age-related osteoporosis without current pathological fracture; Z51.81 Encounter for therapeutic drug level monitoring
CPT/HCPCS: 36415; 80053; 83970; 84100; 85025

== ENCOUNTER → 2024-09-06 08:06 | Outpatient (REF) | payer OTHER, SELFPAY ==
[2024-09-06 09:58] LABS: % Basophils 0.4 % (0-2); % Eosinophils 0.7 % (0-6); % Immature Granulocytes 0.8 % (0-0.5); % Lymphocytes 8.8 % (20.5-51.1); % Neutrophils 83.3 % (42.2-75.2); Absolute Eosinophils 0.1 10^3/uL (0-0.7); Absolute Immature Granulocytes 0.1 10^3/uL (0-0.05); Absolute Lymphocytes 0.8 10^3/uL (1.2-3.4); Absolute Monocytes 0.5 10^3/uL (0.1-0.6); Absolute Neutrophils 7.4 10^3/uL (1.4-6.5); Hematocrit 35.1 % (37.0-47.0); Hemoglobin 11.7 g/dL (12.0-16.0); Mean Corp Hgb Conc. 33.3 g/dL (33.0-37.0); Mean Corpuscular Hgb 31.7 pg (27.0-31.0); Mean Corpuscular Volume 95.1 fL (81.0-99.0); Mean Platelet Volume 11.3 fL (7.4-10.4); Nucleated Red Blood Cells % 0 %; Platelet Count 211 10^3/uL (130-400); Red Blood Cell Count 3.69 10^6/uL (4.20-5.40); Red Cell Dist. Width 14.9 % (11.5-14.5); White Blood Cell Count 8.9 10^3/uL (4.8-10.8)
[2024-09-06 10:54] LABS: ALT (SGPT) 15 U/L (0-35); AST (SGOT) 13 U/L (14-36); Albumin 3.9 g/dl (3.5-5.0); Alkaline Phosphatase 107 U/L (38-126); Blood Urea Nitrogen 12 mg/dl (7-17); Calcium 9.3 mg/dl (8.4-10.2); Carbon Dioxide 28 mmol/L (22-30); Chloride 109 mmol/L (98-107); Glucose 139 mg/dl (70-99); HDL Cholesterol 56 mg/dl; LDL Cholesterol, Calculated 30 mg/dl; Potassium 3.9 mmol/L (3.5-5.1); Sodium 144 mmol/L (135-145); Total Bilirubin 0.5 mg/dl (0.2-1.3); Total Cholesterol 108 mg/dl (50-199); Total Protein 6.1 g/dl (6.3-8.2); Triglyceride 112 mg/dl (10-149); Very Low Density Lipoprotein 22 mg/dl (0-30); eGFR > 60.00
== END ==
LOC: REG 08:06
PROVIDERS: ATTENDING PHYSICIAN Family Medicine
DX: E11.9 Type 2 diabetes mellitus without complications (principal); D64.9 Anemia, unspecified; E78.00 Pure hypercholesterolemia, unspecified
CPT/HCPCS: 36415; 80053; 80061; 82728; 83036; 85025

== ENCOUNTER → 2024-09-07 08:20 | Outpatient (REF) | payer OTHER, SELFPAY | LOC: RSP 08:20 | PROVIDERS: ATTENDING PHYSICIAN Internal Medicine Cardiovascular Disease; FAMILY PHYSICIAN Family Medicine | DX: R06.09 Other forms of dyspnea (principal) | CPT/HCPCS: 94727; 94729; 88738; 94010 ==

== ENCOUNTER → 2024-09-12 09:23 | Outpatient (REF) | payer OTHER, SELFPAY ==
[2024-09-12 10:20] LABS: % Basophils 0.7 % (0-2); % Eosinophils 0.9 % (0-6); % Immature Granulocytes 0.2 % (0-0.5); % Lymphocytes 15.7 % (20.5-51.1); % Monocytes 11.3 % (1.7-9.3); % Neutrophils 71.2 % (42.2-75.2); Absolute Eosinophils 0.1 10^3/uL (0-0.7); Absolute Lymphocytes 0.9 10^3/uL (1.2-3.4); Absolute Monocytes 0.7 10^3/uL (0.1-0.6); Absolute Neutrophils 4.1 10^3/uL (1.4-6.5); Hematocrit 32.4 % (37.0-47.0); Mean Corpuscular Volume 94.2 fL (81.0-99.0); Nucleated Red Blood Cells % 0 %; Platelet Count 176 10^3/uL (130-400); Red Blood Cell Count 3.44 10^6/uL (4.20-5.40); Red Cell Dist. Width 14.6 % (11.5-14.5); White Blood Cell Count 5.7 10^3/uL (4.8-10.8)
[2024-09-12 12:01] LABS: ALT (SGPT) 15 U/L (0-35); AST (SGOT) 15 U/L (14-36); Albumin 4.1 g/dl (3.5-5.0); Alkaline Phosphatase 78 U/L (38-126); Blood Urea Nitrogen 17 mg/dl (7-17); Calcium 8.9 mg/dl (8.4-10.2); Carbon Dioxide 29 mmol/L (22-30); Chloride 105 mmol/L (98-107); Glucose 113 mg/dl (70-99); Potassium 4.1 mmol/L (3.5-5.1); Sodium 137 mmol/L (135-145); Total Bilirubin 0.8 mg/dl (0.2-1.3); Total Protein 6.3 g/dl (6.3-8.2); eGFR > 60.00
== END ==
LOC: REG 09:23
PROVIDERS: ATTENDING PHYSICIAN Internal Medicine Hematology & Oncology; FAMILY PHYSICIAN Family Medicine
DX: C50.811 Malignant neoplasm of overlapping sites of right female breast (principal); C79.89 Secondary malignant neoplasm of other specified sites; G89.3 Neoplasm related pain (acute) (chronic); D50.9 Iron deficiency anemia, unspecified
CPT/HCPCS: 36415; 80053; 85025

== ENCOUNTER → 2024-09-20 08:19 | Outpatient (REF) | payer OTHER, SELFPAY | LOC: RAD 08:19 | PROVIDERS: ATTENDING PHYSICIAN Internal Medicine Cardiovascular Disease; FAMILY PHYSICIAN Family Medicine | DX: J98.4 Other disorders of lung (principal) | CPT/HCPCS: 71260; Q9967 ==

== ENCOUNTER → 2024-09-27 11:01 | Outpatient (REF) | payer OTHER, SELFPAY ==
[2024-09-27 11:52] LABS: % Basophils 0.6 % (0-2); % Eosinophils 1.1 % (0-6); % Immature Granulocytes 1.4 % (0-0.5); % Lymphocytes 8.8 % (20.5-51.1); % Monocytes 4.8 % (1.7-9.3); % Neutrophils 83.3 % (42.2-75.2); Absolute Basophils 0.1 10^3/uL (0-0.2); Absolute Eosinophils 0.1 10^3/uL (0-0.7); Absolute Immature Granulocytes 0.2 10^3/uL (0-0.05); Absolute Lymphocytes 1.1 10^3/uL (1.2-3.4); Absolute Monocytes 0.6 10^3/uL (0.1-0.6); Absolute Neutrophils 10.8 10^3/uL (1.4-6.5); Hematocrit 34.7 % (37.0-47.0); Hemoglobin 11.6 g/dL (12.0-16.0); Mean Corp Hgb Conc. 33.4 g/dL (33.0-37.0); Mean Corpuscular Hgb 31.9 pg (27.0-31.0); Mean Corpuscular Volume 95.3 fL (81.0-99.0); Mean Platelet Volume 10.9 fL (7.4-10.4); Nucleated Red Blood Cells % 0 %; Platelet Count 199 10^3/uL (130-400); Red Blood Cell Count 3.64 10^6/uL (4.20-5.40); Red Cell Dist. Width 14.1 % (11.5-14.5); White Blood Cell Count 12.9 10^3/uL (4.8-10.8)
[2024-09-27 14:00] LABS: ALT (SGPT) 17 U/L (0-35); AST (SGOT) 17 U/L (14-36); Albumin 4.2 g/dl (3.5-5.0); Alkaline Phosphatase 131 U/L (38-126); Blood Urea Nitrogen 14 mg/dl (7-17); Calcium 8.9 mg/dl (8.4-10.2); Carbon Dioxide 27 mmol/L (22-30); Chloride 102 mmol/L (98-107); Glucose 116 mg/dl (70-99); Potassium 3.9 mmol/L (3.5-5.1); Sodium 137 mmol/L (135-145); Total Bilirubin 0.6 mg/dl (0.2-1.3); Total Protein 6.6 g/dl (6.3-8.2); eGFR > 60.00
== END ==
LOC: REG 11:01
PROVIDERS: ATTENDING PHYSICIAN Internal Medicine Hematology & Oncology
DX: C50.811 Malignant neoplasm of overlapping sites of right female breast (principal); C79.89 Secondary malignant neoplasm of other specified sites; G89.3 Neoplasm related pain (acute) (chronic); D50.9 Iron deficiency anemia, unspecified
CPT/HCPCS: 36415; 80053; 85025

== ENCOUNTER 2024-10-06 23:55 | Observation (INO) | payer OTHER, SELFPAY ==
[2024-10-06 19:14] VITALS: BP 180/83
[2024-10-06 19:52] LABS: Hematocrit 34.6 % (37.0-47.0); Mean Corp Hgb Conc. 34.7 g/dL (33.0-37.0); Mean Corpuscular Hgb 32.2 pg (27.0-31.0); Mean Corpuscular Volume 92.8 fL (81.0-99.0); Platelet Count 184 10^3/uL (130-400); Red Blood Cell Count 3.73 10^6/uL (4.20-5.40); White Blood Cell Count 19.7 10^3/uL (4.8-10.8)
[2024-10-06 20:12] LABS: Segmented Neutrophils 82 % (42-75)
[2024-10-06 20:13] LABS: Absolute Neutrophils -Man Diff 16.7 10^3/uL (1.4-6.5); Band Neutrophils 3 % (0-3); Eosinophils 1 % (0-6); Lymphocytes 11 % (20-51); Monocytes 3 % (2-9); Normal RBC Morphology Yes; Platelets Checked Yes
[2024-10-06 20:14] LABS: ALT (SGPT) 16 U/L (0-35); AST (SGOT) 16 U/L (14-36); Albumin 4.5 g/dl (3.5-5.0); Alkaline Phosphatase 143 U/L (38-126); Blood Urea Nitrogen 17 mg/dl (7-17); Calcium 9.4 mg/dl (8.4-10.2); Carbon Dioxide 25 mmol/L (22-30); Chloride 103 mmol/L (98-107); Glucose 98 mg/dl (70-99); Potassium 3.7 mmol/L (3.5-5.1); Sodium 138 mmol/L (135-145); Total Bilirubin 0.5 mg/dl (0.2-1.3); Total Cells Counted 100; Total Protein 6.9 g/dl (6.3-8.2); eGFR > 60.00
[2024-10-06 20:26] LABS: Troponin I < 0.012 ng/ml
--- NOTE | 2024-10-06 20:43 | ED.GENMED ---
History of Present Illness
General
Chief Complaint: Weakness
Source: patient
Exam Limitations: none
Time Seen by Provider: 10/06/24 20:18
Nursing documentation reviewed up to this point in time: agreed with
History of Present Illness
History of Present Illness:
The patient is a pleasant 68-year-old female with a past medical history of breast cancer who is currently being treated with IV chemotherapy. Patient reports she last received chemotherapy through her port about 1 week ago. Patient reports she
feels extremely tired and feels generally weak. Patient also complains of feeling lightheaded. Patient also reports feeling queasy and slightly nauseous but denies abdominal pain, vomiting and diarrhea. Patient reports normal bowel movements.
She denies constipation. Patient reports she feels she could sleep all day. Patient denies sore throat, cough and headache. Patient is followed by Dr. Beckham.
Past History
Past History
ED Past Medical History: Cancer (Breast cancer), GERD, HTN, Hypercholesterolemia, IDDM and Other (Hiatal hernia, )
ED Past Surgical History: Cholecystectomy, Orthopedic (Jonathan knee replacement, Shoulder surgery, ) and Other (Right breast lumpectomy)
Social History
Tobacco: Non-smoker
Alcohol: None
Drug: None
Personal: Single
Living: alone
Employment: Other
Family History
Family History: Other
Review of Systems
Review of Systems
Allergies reviewed?: Yes
All Other Systems: ROS reviewed and negative except as documented in HPI and ROS
Constitutional: Reports fatigue
EENT: Reports no symptoms
Respiratory: Reports no symptoms
Cardiac: Reports other (Lightheaded)
ABD/GI: Reports nausea
: Reports no symptoms
Musculoskeletal: Reports no symptoms
Skin: Reports no symptoms
Neurological: Reports no symptoms
Endocrine: Reports no symptoms
Hematologic/Lymphatic: Reports no symptoms
Psychiatric: Reports no symptoms
Phy Exam
Physical Exam
Physical Exam:
Physical Exam
General: no apparent distress, not acutely ill
Neck: supple. no meningeal signs. normal psoterior pharynx
Heart: s1/s2 regular rate and rhythm, no murmur. equal radial pulses.
Lungs: no acute respiratory distress. clear bilaterally
Abdomen: normal bowel sounds. not tender. no CVAT
Neuro: alert and oriented. no focal neurological deficits
Skin: no rash
Psychiatric: well kept. interactive and cooperative
Extremities: no edema. no calf tenderness. negative homans. good distal pulses
Course
Orders/Labs/Results
Orders:
Orders
10/06/24 19:16
ECG [Electrocardiogram (*1)] Urgent
Reason for Study: Fatigue / Weakness
EKG- Treatment ONCE
10/06/24 19:40
Complete Blood Count/With Diff Urgent
Comprehensive Metabolic Panel Urgent
Lipase Urgent
Comment: ADDON
Manual Differential Urgent
Troponin I Urgent
10/06/24 20:45
CR Chest - 2 Views Urgent
Comment:
Reason For Exam: cough
10/06/24 20:54
COVID-19 Antigen Urgent
Source: Nasal Swab
Urinalysis Reflex To Culture Urgent
Date Specimen was Collected: 10/06/24
Time Specimen was Collected: 20:48
Urine Microscopic Reflex Cult Urgent
Urine Culture Urgent
BAM Source: U
Specimen Description:
Date Specimen was Collected: 10/06/24
Time Specimen was Collected: 20:48
10/06/24 22:03
Add On- LAB Urgent
Tests Added?: lipase
Sucralfate Suspension [Carafate Suspension] 1 gm PO NOW STA
10/06/24 22:04
Orthostatic VS- Treatment ONCE
Comment: please do prior to IV fluids
0.9% Sodium Chloride 1000 ml [Nss] 1,000 ml IV BOLUS
10/06/24 23:00
Flush (0.9% Sodium Chloride) [Flush (Nss)] See Dose Instructions IV PER PROTOCOL
10/06/24 23:15
Blood Culture Q30M
BAM Source: Blood/Venous
Specimen Description:
10/06/24 23:45
Blood Culture Q30M
BAM Source: Blood/Venous
Specimen Description:
Abnormal Lab Results
10/06/24 10/06/24
19:40 20:54
WBC 19.7 H 10^3/uL
(4.8-10.8)
RBC 3.73 L 10^6/uL
(4.20-5.40)
Hct 34.6 L %
(37.0-47.0)
MCH 32.2 H pg
(27.0-31.0)
MPV 11.0 H fL
(7.4-10.4)
Abs Neuts (Manual) 16.7 H 10^3/uL
(1.4-6.5)
Segmented Neutrophils 82 H %
(42-75)
Lymphocytes (Manual) 11 L %
(20-51)
Alkaline Phosphatase 143 H U/L
(38-126)
Ur Occult Blood Reflex 1+ A
(Negative)
Leukocyte Esterase Rfl 1+ A
(Negative)
10/06/24 19:40
10/06/24 19:40
Vital Signs
Initial and Last Documented VS:
Initial Vital Signs
Temp Pulse Resp BP Pulse Ox
97.8 F 81 18 180/83 99
10/06/24 19:14 10/06/24 19:14 10/06/24 19:14 10/06/24 19:14 10/06/24 19:14
Last Documented Vital Signs
Temp Pulse Resp BP Pulse Ox
97.8 F 78 16 151/65 98
10/06/24 19:14 10/06/24 23:10 10/06/24 23:10 10/06/24 22:38 10/06/24 22:30
MDM/Problems Addressed
Differential Diagnosis Includes:
Acute UTI, acute pneumonia, hyponatremia
MDM/Problems Addressed:
Patient presents with acute generalized weakness and fatigue
Chronic conditions affecting care:
Given patient has a history of cancer is on chemotherapy, she could have increased risk of infection
*Radiology
Radiology exam reviewed: preliminary read by ED provider (Chest x-ray reviewed by me. No acute disease) and radiology read reviewed
*Pulse Oximetry
Patient hypoxic: no
Comment: 99% on room air
*EKG
Interpreted by ED Provider?: Yes
Interpretation: abnormal
Comparison EKG: no changes
Rate: normal
Rhythm: sinus
[place]: normal axis
Interval: normal interval
QRS Pattern: normal QRS
Ischemia: non-specific ST changes
*Quantitative Researcher Interpretation
Rate: normal
Interpretation: normal
Rhythm: sinus
*Critical Care Note
Total Time (30-74mins, 75-104mins- exclusive of procedures): Not Applicable
Data Reviewed
Review of Other/Old Records Reveals: Labs (White blood cell count was 12.9 on 09/27/2024)
Source: patient
ED Attending Note
-
Portions of this chart may have been created with voice recognition software.� Occasional wrong word or��sound alike� substitutions may have occurred due to the inherent limitations of voice recognition software.
Discharge Plan
Departure
Patient Disposition: Admit
Date of Disposition: 10/06/24
Time of Disposition: 23:09
Admit to: Med/Surg
Presentation/result/management discussed w/ accepting MD/DO: Hospitalist
Patient with high blood pressure during this ER visit?: Yes
Condition: Good
Covid-19: Negative COVID-19
Discharge Problem:
Leukocytosis, Generalized weakness
Prescriptions:
No Action
metformin 500 mg Tablet
500 mg PO BID
atorvastatin 20 mg Tablet
20 mg PO DAILY
carvedilol 12.5 mg Tablet
12.5 mg PO BID
lamotrigine 200 mg Tablet
150 mg PO BID
famotidine 40 mg Tablet
40 mg PO BID
valsartan 80 mg Tablet
320 mg PO DAILY
allopurinol 100 mg Tablet
100 mg PO DAILY
aspirin 81 mg Tablet,Delayed Release (Dr/Ec)
81 mg PO DAILY
benzonatate 100 mg Capsule
100 mg PO TID PRN (Reason: dry cough)
pantoprazole 40 mg Tablet,Delayed Release (Dr/Ec)
40 mg PO BID
montelukast 10 mg Tablet
10 mg PO HS
estradiol 0.01 % (0.1 mg/gram) Cream
1 g VAGINAL QWEEK
duloxetine 60 mg Capsule,Delayed Release(Dr/Ec)
120 mg PO HS
pregabalin 75 mg Capsule
75 mg PO BID
cholecalciferol (vitamin D3) [Vitamin D3] 25 mcg (1,000 unit) Tablet
25 mcg PO DAILY
sacituzumab govitecan-hziy 180 mg Recon Soln
180 mg IV
Rx Instructions:
Fridays for 2 weeks then off 1 week
Referrals:
Delroy Lowe Jr., DO [Family Provider, Internal Medicine]
Interventions
Interventions:
*Risk Screen - Suicide Last Done: 10/06/24 19:14
*General Assessment Last Done: 10/06/24 20:54
*Neglect/Abuse Screening Last Done: 10/06/24 19:14
*ED- Fall Risk Assessment Last Done: 10/06/24 23:00
*ED COVID-19 Vaccine History Last Done: 10/06/24 20:54
ED- Cardiac Assessment Last Done: 10/06/24 20:54
ED- Neurological Assessment Last Done: 10/06/24 22:38
ED- Pulmonary Assessment Last Done: 10/06/24 20:54
Discharge Date and Time
Print Language: AZERI
[2024-10-06 20:53] VITALS: BP 154/72; BMI 32.8
[2024-10-06 21:16] LABS: COVID-19 Antigen Negative (Negative)
[2024-10-06] MEDS: CARAFATE SUSPENSION 1 GM PO (22:07)
[2024-10-06] MEDS: NSS 1000 IV (22:30)
[2024-10-06 22:36] LABS: Lipase 98 U/L (23-300)
[2024-10-06 22:38] VITALS: BP 151/65
[2024-10-06 22:44] LABS: Urine Albumin Negative (Neg - Trace); Urine Bilirubin Negative (Negative); Urine Character Clear (Clear); Urine Color Yellow; Urine Glucose Negative (Negative); Urine Ketone Negative (Negative); Urine Leukocyte 1+ (Negative); Urine Nitrite Negative (Negative); Urine Occult Blood 1+ (Negative); Urine Specific Gravity 1.005 (<1.030); Urine Urobilinogen Negative (Neg - 1+)
[2024-10-06 22:55] LABS: Urine Red Blood Cell 0-2 /HPF (0-2); Urine White Cell 0-2 /HPF (0-5)
--- NOTE | 2024-10-06 23:18 | HPS.HSE ---
Addendum entered and electronically signed by Ella Brennan DO 10/07/24 00:08:
The patient is seen and examined. I have reviewed the patient with Marilynn, and agree with her history and physical assessment and plan of care as per below, with the following additions. The patient notes that she takes 60 mg of Lasix daily, most
recent dose this morning, for lower extremity edema. The patient has a history of triple negative breast cancer status post lumpectomy and radiation therapy to the right breast. She had a medication similar to Neupogen on Wednesday following
chemotherapy.She notes that she feels too weak to get around her apartment, and she lives alone. She recently had depression medications adjusted including discontinuation of Wellbutrin and trazodone.
ED treatment�Carafate 1 g and 1 L IV fluid bolus
Vital signs reviewed and stable, afebrile
Patient is awake alert and oriented x 3 with no focal neurologic deficits,
cardiovascular regular rate and rhythm no murmurs rubs or gallops
lungs are clear to auscultation bilaterally no wheezes rales rhonchi
abdomen is soft nontender normal active bowel sounds
Labs�WBC 19.7
Imaging�chest x-ray with no acute disease
Echocardiogram from July 24, 2024 shows normal biventricular size and systolic function without regional wall motion abnormality and EF of 60 to 65%, no valvular disease
Assessment�
# Generalized weakness, nausea
- Status post chemotherapy 1 week ago
- Awaiting blood culture results
-As needed antiemetics
-Physical therapy evaluation
-gentle IV hydration
-Hold morning dose of Lasix and monitor
-Check magnesium level-and CPK, TSH was normal in June
# Breast cancer receiving chemotherapy
# Leukocytosis without evidence for acute infection at this time and afebrile.
- Repeat CBC with differential in the morning and monitor for signs of infection and fever, add IV antibiotics for fever
- Likely due to hematopoietic agent following chemotherapy
# Depression
- Continue home medications
I agree with the additional findings as per below.
Original Note:
Family Physician
-
Family Physician: Delroy Lowe Jr.
Chief Complaint
-
generalized weakness
History of Present Illness
68-year-old female with a past medical history of GERD, hypertension, depression, type 2 diabetes, hyperlipidemia, anemia, breast cancer who is currently being treated with IV chemotherapy presented to us with generalized weakness, lightheaded and
nausea since the last chemo on Wednesday. Patient denied any diarrhea or abdominal pain. Patient denied any fever, chills, cough, congestion. Patient denied any headache, dizzy. Patient denied dysuria hematuria.
Upon arrival she was noted to have elevated WBCs. Admitted for further management
Medical History
Past Medical History
Past Medical History: Reports Other
Additional Past Medical History:
Normocytic anemia
Chronic GERD
Primary hypertension
Depression
Type 2 diabetes
Breast cancer
Arthritis
Hyperlipidemia
Anxiety
Anemia
Sleep apnea
Glaucoma
Gout
GERD right-sided spinal stenosis
Cataract
Past Surgical History: Reports Other
Additional Past Surgical History:
Right shoulder arthroscopy
Lumpectomy
Right TKR
Left knee revision
Umbilical hernia repair
Bilateral cataracts
Social History
Tobacco: Non-smoker
Alcohol: None
Drug: None
Family History
Family History: Not pertinent
Allergies / Home Medications
Allergies reflects when Allergies were last updated in [employer].
Home Medications with original date entered in [employer]
Allergy/Medication List:
Allergies
Allergy/AdvReac Type Severity Reaction Status Date / Time
amitriptyline (From Elavil) Allergy manic Verified 10/06/24 19:14
fluoxetine (From Prozac) Allergy Unknown Verified 10/06/24 19:14
haloperidol (From Haldol) Allergy twitching Verified 10/06/24 19:14
hydrochlorothiazide Allergy low bp Verified 10/06/24 19:14
hydrocodone Allergy sedation Verified 10/06/24 19:14
lisinopril Allergy disoriented Verified 10/06/24 19:14
triamterene Allergy low bp Verified 10/06/24 19:14
Home Medications
allopurinol 100 mg tablet 100 mg PO DAILY 07/09/23
aripiprazole 20 mg tablet (Abilify) 20 mg PO HS 07/09/23
aspirin 81 mg tablet,delayed release 81 mg PO DAILY 07/09/23
atorvastatin 20 mg tablet 20 mg PO DAILY 07/09/23
benzonatate 100 mg capsule 100 mg PO TID PRN dry cough 07/09/23
carvedilol 12.5 mg tablet 12.5 mg PO BID 07/09/23
cholecalciferol (vitamin D3) 25 mcg (1,000 unit) tablet (Vitamin D3) 25 mcg PO DAILY 07/09/23
duloxetine 60 mg capsule,delayed release 60 mg PO BID 07/09/23
estradiol 0.01% (0.1 mg/gram) vaginal cream 1 g vaginal QWEEK 07/09/23
famotidine 40 mg tablet 40 mg PO BID 07/09/23
lamotrigine 200 mg tablet 200 mg PO BID 07/09/23
latanoprost 0.005 % eye drops 1 drp ophthalmic (eye) DAILY 07/09/23
melatonin 10 mg tablet 10 mg PO HS sleep 07/09/23
metformin 500 mg tablet 500 mg PO BID 07/09/23
montelukast 10 mg tablet 10 mg PO HS 07/09/23
wrkkptmg-lyp-bnmuz acid 0.4 mg-lycopene 300 mcg-lutein 250 mcg tablet (Centrum Silver) 1 tab PO DAILY 07/09/23
ondansetron 8 mg disintegrating tablet 8 mg PO Q8H PRN nausea 07/09/23
pantoprazole 40 mg tablet,delayed release 40 mg PO BID 07/09/23
pegfilgrastim 6 mg/0.6 mL subcutaneous syringe (Neulasta) 6 mg SC ONCE 07/09/23
pregabalin 75 mg capsule 75 mg PO BID 07/09/23
sacituzumab govitecan-hziy 180 mg intravenous solution 180 mg IV 07/09/23
trazodone 100 mg tablet 100 mg PO HS 07/09/23
valsartan 80 mg tablet 80 mg PO DAILY 07/09/23
Review of Systems
-
Constitutional: Reports No Symptoms
EENT: Reports No Symptoms
Respiratory: Reports No Symptoms
Cardiac: Reports No Symptoms
Abdomen/GI: Reports No Symptoms
: Reports No Symptoms
Musculoskeletal: Reports No Symptoms
Skin: Reports No Symptoms
Neurological: Reports Weakness
Endocrine: Reports No Symptoms
Hematologic/Lymphatic: Reports No Symptoms
Psych: Reports No Symptoms
Physical Exam
Vital Signs
Vital Signs
Temp Pulse Resp BP Pulse Ox
97.8 F 78 16 151/65 98
10/06/24 19:14 10/06/24 23:10 10/06/24 23:10 10/06/24 22:38 10/06/24 22:30
Physical Exam
General: Well Developed, Well Nourished and No Apparent Distress
HEENT: NormoCephalic, Moist mucous membranes and Atraumatic
Respiratory: Clear
Cardiac: S1/S2 and Regular Rhythm; No Murmur or Rub
GI: Soft, Non Tender, Non Distended and Normal Bowel Sounds; No Organomegaly
Rectal: Deferred by Provider
Musculoskeletal: No Clubbing, No Cyanosis and No Edema
Skin: No Rash
Neuro: AO x 3 and Nonfocal/grossly intact
Psych: Calm
Laboratory Results
-
10/06/24 19:40
10/06/24 19:40
Laboratory Results
Total Bilirubin 0.5 mg/dl (0.2-1.3) 10/06/24 19:40
AST 16 U/L (14-36) 10/06/24 19:40
ALT 16 U/L (0-35) 10/06/24 19:40
Alkaline Phosphatase 143 U/L (38-126) H 10/06/24 19:40
Troponin I < 0.012 ng/ml 10/06/24 19:40
Lipase 98 U/L (23-300) 10/06/24 19:40
Data Reviewed
-
Diagnostic Radiology: Report Reviewed by me
Lab Data: Labs Reviewed by me
Impression/Plan
-
# Severe fatigue and tiredness likely from chemo
# History of breast cancer, gets chemo every 2 weeks
- PT/OT consult
# Nausea likely from chemo
- Zofran as needed for nausea or vomiting
# Leukocytosis unclear cause
- WBCs 19.7, patient is afebrile
- Blood culture sent from ER
- UA, COVID negative
- Chest x-ray with no acute disease
#History of gout
-allopurinol continued
# History of depression and anxiety
-Vraylar,duloxetine continued
-Lamictal continued
# History of hypertension/hyperlipidemia
-statin, coreg and valsartan continued with hold parameter
-hold lasix
# Type 2 diabetes
- Sliding scale
- CHO diet
-metformin continued
# GERD
- PPI continue
# DVT prophylaxis
- Lovenox
# CODE STATUS
- Full code
[2024-10-07] VITALS (7 sets, daily range): BP systolic 126–171; BP diastolic 73–82; O2SAT 96; BMI 35.0
[2024-10-07] MEDS: NSS 1000 IV (01:49)
[2024-10-07] MEDS: ZOFRAN 4 MG IV ×2 (02:21→12:50)
--- NOTE | 2024-10-07 04:56 | PTCARENOTE ---
01:50pt rec;vd from ER, pt ambulated to restroom,un-access RCWP, denies pain did express feeling nauseous Zofran given,IVF infusing Lf/a RUE restrictions, vs WNL, pt oriented to unit.
[2024-10-07 05:42] LABS: Hematocrit 30.9 % (37.0-47.0); Hemoglobin 10.4 g/dL (12.0-16.0); Mean Corp Hgb Conc. 33.7 g/dL (33.0-37.0); Mean Corpuscular Volume 95.1 fL (81.0-99.0); Mean Platelet Volume 11.3 fL (7.4-10.4); Platelet Count 170 10^3/uL (130-400); Red Blood Cell Count 3.25 10^6/uL (4.20-5.40)
[2024-10-07 07:36] LABS: Glucose - Point of Care 130 mg/dl (70-99)
[2024-10-07] MEDS: OSCAL CAL 500 2000 MG PO (08:13)
[2024-10-07] MEDS: PROTONIX 40 MG PO (08:13)
[2024-10-07] MEDS: LYRICA 75 MG PO (08:14)
[2024-10-07] MEDS: LIPITOR 20 MG PO (08:14)
[2024-10-07] MEDS: PEPCID 40 MG PO (08:14)
[2024-10-07] MEDS: DESENEX/MITRAZOL/ZEASORB 1 APPLIC TOPICAL (08:15)
[2024-10-07] MEDS: GLUCOPHAGE 500 MG PO (08:15)
[2024-10-07] MEDS: CELEBREX 200 MG PO (08:15)
[2024-10-07] MEDS: ASPIR LOW (ENTERIC COATED) 81 MG PO (08:16)
[2024-10-07] MEDS: ZYLOPRIM 100 MG PO (08:16)
[2024-10-07] MEDS: COREG 12.5 MG PO (08:16)
[2024-10-07] MEDS: VITAMIN D3 (cholecalciferol) 25 MCG PO (08:16)
--- NOTE | 2024-10-07 08:49 | W.PN.HOSP.TC ---
Today's Communication/Plan
-
see plan
Assessment / Plan
Assessment / Plan
Ms. Aleta Marcano is a 68 yo woman with hx breast CA s/p lumpectomy and radiation on chemotherapy, GERD, HTN, HLD presents to the ER with weakness. Last chemotherapy 4 days prior.
Echocardiogram from July 24, 2024 shows normal biventricular size and systolic function without regional wall motion abnormality and EF of 60 to 65%, no valvular disease
# Severe fatigue and tiredness likely from chemo versus change in psychiatric medications (cessation wellbutrin last week; also stopped Trazodone)
# History of breast cancer, gets chemo every 2 weeks
-gentle IVF - now stop,
- PT/OT consult appreciated - no needs
-patient asked to follow up with her Psychiatrist next week
# Nausea likely from chemo
- Zofran as needed for nausea or vomiting
# Leukocytosis unclear cause
- WBCs 19.7, patient is afebrile. She received Neuupogen prior to chemothearpy; downtrending today
- Blood culture sent from ER
- UA, COVID negative
- Chest x-ray with no acute disease
#History of gout
-allopurinol continued
# History of depression and anxiety
-Vraylar,duloxetine continued
-Lamictal continued
# History of hypertension/hyperlipidemia
-statin, coreg and valsartan continued with hold parameter
-hold lasix
# Type 2 diabetes
- Sliding scale
- CHO diet
-metformin continued
# GERD
- PPI continue
# DVT prophylaxis
- Lovenox
# CODE STATUS
- Full code
Anticipated Discharge: Within 24 hours
Subjective/Interval History
-
Date of Service: October 07, 2024
feeling better than yesterday but remains fatigued
worked well with PT
she reported intermittent left-sided chest discomfort when receiving IVF she has had a similar feeling with chemotherapy. It is now resolved. No pain when taking a deep breath.
Objective Data
-
Labs:
Laboratory Results
10/07/24
05:26
WBC 17.0 H
Hgb 10.4 L
Hct 30.9 L
Plt Count 170
Vital Signs:
Vital Signs
Temp Pulse Resp BP Pulse Ox
97.8 F 88 18 157/74 96
10/07/24 08:30 10/07/24 08:30 10/07/24 08:30 10/07/24 08:30 10/07/24 08:30
Review of Systems
-
History Source: Patient
All other systems: Reviewed and negative
Physical Exam
-
General: No Apparent Distress
HEENT: PERRLA
Respiratory: Clear to Auscultation; Negative Wheezes
Cardiac: Regular Rhythm and S1/S2
GI: Soft and Nontender
Skin: Warm and Dry; Negative Rash
Neuro: AO x 3
Psych: Calm
Data Reviewed
-
Diagnostic Radiology: Report Reviewed by me
Labs: Labs Reviewed by me
[2024-10-07 10:18] LABS: Troponin I < 0.012 ng/ml
--- NOTE | 2024-10-07 11:17 | PTCARENOTE ---
b/p taken at request of pt.
[2024-10-07] MEDS: TYLENOL 650 MG PO (11:42)
[2024-10-07 11:47] LABS: Glucose - Point of Care 105 mg/dl (70-99)
--- NOTE | 2024-10-07 13:13 | W.DS.TRANS ---
DC Summary - [employer]
-
Discharge Instructions:
Discharge Diagnosis/Procedures weakness/fatigue post chemotherapy
Diet Regular
Activity As tolerated
Driving Restrictions As prior to admission
Bathing Restrictions None
Instructions:
Stand-Alone Forms:
Changes to Home Medications: No
Discharge Medications:
DC Medications w/original date entered in [facility]
allopurinol 100 mg tablet 100 mg PO DAILY Gout 07/09/23
aspirin 81 mg tablet,delayed release 81 mg PO DAILY Blood Clot Prevention/Tx 07/09/23
atorvastatin 20 mg tablet 20 mg PO DAILY High Cholesterol 07/09/23
benzonatate 100 mg capsule 100 mg PO TID PRN dry cough 07/09/23
carvedilol 12.5 mg tablet 12.5 mg PO BID Blood Pressure 07/09/23
cholecalciferol (vitamin D3) 25 mcg (1,000 unit) tablet (Vitamin D3) 25 mcg PO DAILY Supplement 07/09/23
duloxetine 60 mg capsule,delayed release 120 mg PO HS Mental Health/Anxiety 07/09/23
estradiol 0.01% (0.1 mg/gram) vaginal cream 1 g vaginal QWEEK Urinary Issue 07/09/23
famotidine 40 mg tablet 40 mg PO BID Gastrointestinal Issue 07/09/23
lamotrigine 200 mg tablet 300 mg PO HS Neurological Condition 07/09/23
metformin 500 mg tablet 500 mg PO BID Gastrointestinal Issue 07/09/23
montelukast 10 mg tablet 10 mg PO HS Allergies 07/09/23
pantoprazole 40 mg tablet,delayed release 40 mg PO BID Gastrointestinal Issue 07/09/23
pregabalin 75 mg capsule 75 mg PO BID Neurological Condition 07/09/23
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
valsartan 80 mg tablet 320 mg PO DAILY Blood Pressure 07/09/23
calcium citrate 1,040 mg tablet 2,000 mg PO DAILY Supplement 10/06/24
cariprazine 3 mg capsule (Vraylar) 3 mg PO DAILY Mental Health/Anxiety 10/06/24
celecoxib 200 mg capsule (Celebrex) 200 mg PO DAILY Pain 10/06/24
furosemide 80 mg tablet 80 mg PO DAILY Fluid Retention/Swelling 10/06/24
nystatin 100,000 unit/gram topical powder (Nystop) 1 applic topical BID Infection 10/06/24
triamcinolone acetonide 0.1 % topical cream 1 applic topical DAILY PRN skin 10/06/24
Home Medication Changes
Pending Results: No
--- NOTE | 2024-10-07 13:14 | W.DCSUMMARY ---
Discharge Summary
Discharge Data
Date of Admission: 10/06/24
Date of Discharge: 10/07/24
-
Pending Results: No
Hospital Course
Discharging Physician : Dr. Liz Jay
Disposition : Home
Primary care physician : Dr. Delroy Lowe
Principal Discharge diagnosis : Fatigue/weakness post chemotherapy
Hospital Course :
Ms. Aleta Marcano is a 68 yo woman with hx breast CA s/p lumpectomy and radiation on chemotherapy, GERD, HTN, HLD presents to the ER with weakness. Last chemotherapy 4 days prior. Triage vitals significant for hypertension. Labs with WBC 19.7 (she
had received G-CSF earlier in week with chemotherapy). CXR without e/o infection, UA without significant WBC, covid negative. She was admitted as observation and received IVF over night. The following day patient's WBC down-trended, she felt
better and worked well with PT. We talked later that afternoon and patient reported feeling better. She was offered another night of observation but wished to go home.
Patient's fluids are stopped, she can resume Lasix tomorrow.
Patient's psychiatric medications Wellbutrin and Trazodone were recently stopped for fatigue. Med regimen/ cessation of Wellbutrin may be playing a role as well and she is encouraged to follow up closely with her psychiatrist.
Time spent on discharge was 31 minutes.
Important imaging findings :
Procedure findings :
Discharge Plan
-
Patient Disposition: Home (Routine Discharge)
Discharge Diagnosis/Procedures: weakness/fatigue post chemotherapy
Diet: Regular
Activity: As tolerated
Driving Restrictions: As prior to admission
Bathing Restrictions: None
Referrals:
Delroy Lowe Jr., DO [Family Provider, Internal Medicine] - in less than 1 week
Prescriptions:
Continued
metformin 500 mg Tablet
500 mg PO BID
atorvastatin 20 mg Tablet
20 mg PO DAILY
carvedilol 12.5 mg Tablet
12.5 mg PO BID
lamotrigine 200 mg Tablet
300 mg PO HS
famotidine 40 mg Tablet
40 mg PO BID
valsartan 80 mg Tablet
320 mg PO DAILY
allopurinol 100 mg Tablet
100 mg PO DAILY
aspirin 81 mg Tablet,Delayed Release (Dr/Ec)
81 mg PO DAILY
benzonatate 100 mg Capsule
100 mg PO TID PRN (Reason: dry cough)
pantoprazole 40 mg Tablet,Delayed Release (Dr/Ec)
40 mg PO BID
montelukast 10 mg Tablet
10 mg PO HS
estradiol 0.01 % (0.1 mg/gram) Cream
1 g VAGINAL QWEEK
duloxetine 60 mg Capsule,Delayed Release(Dr/Ec)
120 mg PO HS
pregabalin 75 mg Capsule
75 mg PO BID
cholecalciferol (vitamin D3) [Vitamin D3] 25 mcg (1,000 unit) Tablet
25 mcg PO DAILY
sacituzumab govitecan-hziy 180 mg Recon Soln
180 mg IV
Rx Instructions:
Fridays for 2 weeks then off 1 week
celecoxib [Celebrex] 200 mg Capsule
200 mg PO DAILY
calcium citrate 1,040 mg Tablet
2,000 mg PO DAILY
triamcinolone acetonide 0.1 % Cream
1 applic TOPICAL DAILY PRN (Reason: skin)
furosemide 80 mg Tablet
80 mg PO DAILY
nystatin [Nystop] 100,000 unit/gram Powder
1 applic TOPICAL BID
Vraylar 3 mg Capsule
3 mg PO DAILY
Discharge Orders:
Discharge Patient (As Directed); Ordered 10/07/24
Ordered By: Liz Jay
Discharge Date and Time
Print Language: ROMANSH
--- NOTE | 2024-10-07 13:28 | CM ---
CM following re: discharge planning.
Reviewed pt's chart, met with pt.
Pt is a 68 year old female, admitted with OBS status and primary dx of Severe fatigue and tiredness likely from chemotherapy. OBS status explained to the pt, pt expressed her understanding. MURILLO letter signed, placed on chart, pt has a copy.
Pt reports she lives alone in an apartment, no steps, no family around, brother lives 2 hours away. Pt described herself as independent in all areas [employer], drives. No DME, VN or SNF history.
Discharge order note. Pt is aware and she stated she will drive home.
No after care VN services indicated.
PCP: Delroy Lowe
Pharmacy: [facility]
D/C plan. home no needs. Pt will drive home.
== END 2024-10-07 14:54 | disposition home or self-care (01) ==
LOC: 2 NORTH 23:55
PROVIDERS: Emergency Medicine; Registered Nurse; ADMITTING PHYSICIAN Internal Medicine; ATTENDING PHYSICIAN Student in an Organized Health Care Education/Training Program; EMERGENCY PHYSICIAN Emergency Medicine; FAMILY PHYSICIAN Family Medicine
DX: R53.1 Weakness (principal); R53.83 Other fatigue; R11.0 Nausea; R42 Dizziness and giddiness; D72.829 Elevated white blood cell count, unspecified; T45.1X5A Adverse effect of antineoplastic and immunosuppressive drugs, initial encounter; Y92.9 Unspecified place or not applicable; C50.919 Malignant neoplasm of unspecified site of unspecified female breast; I10 Essential (primary) hypertension; E11.9 Type 2 diabetes mellitus without complications; F32.A Depression, unspecified; E78.00 Pure hypercholesterolemia, unspecified; F41.9 Anxiety disorder, unspecified; M19.90 Unspecified osteoarthritis, unspecified site; G47.30 Sleep apnea, unspecified; M10.9 Gout, unspecified; R94.31 Abnormal electrocardiogram [ECG] [EKG]; K21.9 Gastro-esophageal reflux disease without esophagitis; Z90.49 Acquired absence of other specified parts of digestive tract; Z96.653 Presence of artificial knee joint, bilateral; Z60.2 Problems related to living alone; Z92.3 Personal history of irradiation; Z17.421 Hormone receptor negative with human epidermal growth factor receptor 2 negative status; Z92.21 Personal history of antineoplastic chemotherapy; Z88.8 Allergy status to other drugs, medicaments and biological substances; Z79.84 Long term (current) use of oral hypoglycemic drugs; Z79.82 Long term (current) use of aspirin; Z88.5 Allergy status to narcotic agent; Z11.52 Encounter for screening for COVID-19
CPT/HCPCS: 71046; 80053; 81003; 81015; 82962; 83036; 83690; 83735; 84484; 85025; 85027; 87040; 87086; 87811; 93005; 96360; 96361; 97162; 97166; 99285; G0378

== ENCOUNTER → 2024-10-11 11:05 | Outpatient (REF) | payer OTHER, SELFPAY ==
[2024-10-11 11:59] LABS: % Basophils 0.4 % (0-2); % Eosinophils 0.6 % (0-6); % Immature Granulocytes 0.9 % (0-0.5); % Lymphocytes 9.5 % (20.5-51.1); % Monocytes 5.9 % (1.7-9.3); % Neutrophils 82.7 % (42.2-75.2); Absolute Basophils 0.1 10^3/uL (0-0.2); Absolute Eosinophils 0.1 10^3/uL (0-0.7); Absolute Immature Granulocytes 0.1 10^3/uL (0-0.05); Absolute Lymphocytes 1.1 10^3/uL (1.2-3.4); Absolute Monocytes 0.7 10^3/uL (0.1-0.6); Absolute Neutrophils 9.5 10^3/uL (1.4-6.5); Hematocrit 34.6 % (37.0-47.0); Hemoglobin 11.7 g/dL (12.0-16.0); Mean Corp Hgb Conc. 33.8 g/dL (33.0-37.0); Mean Corpuscular Hgb 32.1 pg (27.0-31.0); Mean Corpuscular Volume 94.8 fL (81.0-99.0); Mean Platelet Volume 11.2 fL (7.4-10.4); Nucleated Red Blood Cells % 0 %; Platelet Count 228 10^3/uL (130-400); Red Blood Cell Count 3.65 10^6/uL (4.20-5.40); Red Cell Dist. Width 13.9 % (11.5-14.5); White Blood Cell Count 11.5 10^3/uL (4.8-10.8)
[2024-10-11 12:43] LABS: ALT (SGPT) 16 U/L (0-35); AST (SGOT) 14 U/L (14-36); Albumin 4.2 g/dl (3.5-5.0); Alkaline Phosphatase 126 U/L (38-126); Blood Urea Nitrogen 14 mg/dl (7-17); Calcium 8.9 mg/dl (8.4-10.2); Carbon Dioxide 25 mmol/L (22-30); Chloride 103 mmol/L (98-107); Glucose 168 mg/dl (70-99); Potassium 3.8 mmol/L (3.5-5.1); Sodium 136 mmol/L (135-145); Total Bilirubin 0.7 mg/dl (0.2-1.3); Total Protein 6.4 g/dl (6.3-8.2); eGFR > 60.00
== END ==
LOC: REG 11:05
PROVIDERS: ATTENDING PHYSICIAN Internal Medicine Hematology & Oncology; FAMILY PHYSICIAN Family Medicine
DX: C50.811 Malignant neoplasm of overlapping sites of right female breast (principal); C79.89 Secondary malignant neoplasm of other specified sites; G89.3 Neoplasm related pain (acute) (chronic); D50.9 Iron deficiency anemia, unspecified
CPT/HCPCS: 36415; 80053; 85025

== ENCOUNTER → 2024-11-01 10:41 | Outpatient (REF) | payer OTHER, SELFPAY ==
[2024-11-01 12:40] LABS: Hematocrit 33.2 % (37.0-47.0); Hemoglobin 11.4 g/dL (12.0-16.0); Mean Corp Hgb Conc. 34.3 g/dL (33.0-37.0); Mean Corpuscular Volume 94.6 fL (81.0-99.0); Nucleated Red Blood Cells % 0 %; Platelet Count 203 10^3/uL (130-400); Red Cell Dist. Width 13.6 % (11.5-14.5)
[2024-11-01 13:05] LABS: ALT (SGPT) 17 U/L (0-35); AST (SGOT) 16 U/L (14-36); Albumin 4.3 g/dl (3.5-5.0); Alkaline Phosphatase 79 U/L (38-126); Blood Urea Nitrogen 16 mg/dl (7-17); Calcium 9.0 mg/dl (8.4-10.2); Carbon Dioxide 29 mmol/L (22-30); Chloride 105 mmol/L (98-107); Glucose 110 mg/dl (70-99); Potassium 3.7 mmol/L (3.5-5.1); Sodium 140 mmol/L (135-145); Total Protein 6.8 g/dl (6.3-8.2); eGFR > 60.00
== END ==
LOC: REG 10:41
PROVIDERS: ATTENDING PHYSICIAN Internal Medicine Hematology & Oncology; FAMILY PHYSICIAN Family Medicine
DX: C50.811 Malignant neoplasm of overlapping sites of right female breast (principal); C79.89 Secondary malignant neoplasm of other specified sites; G89.3 Neoplasm related pain (acute) (chronic); D50.9 Iron deficiency anemia, unspecified
CPT/HCPCS: 36415; 80053; 85025

== ENCOUNTER → 2024-11-22 11:16 | Outpatient (REF) | payer OTHER, SELFPAY ==
[2024-11-22 12:07] LABS: Hematocrit 32.5 % (37.0-47.0); Hemoglobin 10.9 g/dL (12.0-16.0); Mean Corp Hgb Conc. 33.5 g/dL (33.0-37.0); Mean Corpuscular Volume 94.2 fL (81.0-99.0); Nucleated Red Blood Cells % 0 %; Platelet Count 182 10^3/uL (130-400); Red Cell Dist. Width 13.6 % (11.5-14.5)
[2024-11-22 12:37] LABS: ALT (SGPT) 15 U/L (0-35); AST (SGOT) 15 U/L (14-36); Albumin 4.0 g/dl (3.5-5.0); Alkaline Phosphatase 84 U/L (38-126); Blood Urea Nitrogen 14 mg/dl (7-17); Calcium 9.1 mg/dl (8.4-10.2); Carbon Dioxide 25 mmol/L (22-30); Chloride 109 mmol/L (98-107); Glucose 90 mg/dl (70-99); Potassium 4.2 mmol/L (3.5-5.1); Sodium 139 mmol/L (135-145); Total Protein 6.2 g/dl (6.3-8.2); eGFR > 60.00
== END ==
LOC: REG 11:16
PROVIDERS: ATTENDING PHYSICIAN Internal Medicine Hematology & Oncology; FAMILY PHYSICIAN Family Medicine
DX: C50.811 Malignant neoplasm of overlapping sites of right female breast (principal); C79.89 Secondary malignant neoplasm of other specified sites; G89.3 Neoplasm related pain (acute) (chronic); D50.9 Iron deficiency anemia, unspecified
CPT/HCPCS: 36415; 80053; 85025

== ENCOUNTER → 2024-12-06 10:10 | Outpatient (REF) | payer OTHER, SELFPAY ==
[2024-12-06 12:01] LABS: Hematocrit 36.2 % (37.0-47.0); Hemoglobin 11.9 g/dL (12.0-16.0); Mean Corp Hgb Conc. 32.9 g/dL (33.0-37.0); Mean Corpuscular Volume 95.3 fL (81.0-99.0); Nucleated Red Blood Cells % 0 %; Platelet Count 211 10^3/uL (130-400); Red Cell Dist. Width 13.4 % (11.5-14.5)
[2024-12-06 13:44] LABS: ALT (SGPT) 17 U/L (0-35); AST (SGOT) 17 U/L (14-36); Albumin 4.2 g/dl (3.5-5.0); Alkaline Phosphatase 120 U/L (38-126); Blood Urea Nitrogen 17 mg/dl (7-17); Calcium 9.2 mg/dl (8.4-10.2); Carbon Dioxide 27 mmol/L (22-30); Chloride 104 mmol/L (98-107); Glucose 153 mg/dl (70-99); Potassium 3.9 mmol/L (3.5-5.1); Sodium 140 mmol/L (135-145); Total Protein 6.4 g/dl (6.3-8.2); eGFR > 60.00
== END ==
LOC: REG 10:10
PROVIDERS: ATTENDING PHYSICIAN Internal Medicine Hematology & Oncology; FAMILY PHYSICIAN Family Medicine
DX: C50.811 Malignant neoplasm of overlapping sites of right female breast (principal); C79.89 Secondary malignant neoplasm of other specified sites; G89.3 Neoplasm related pain (acute) (chronic); D50.9 Iron deficiency anemia, unspecified
CPT/HCPCS: 36415; 80053; 85025

== ENCOUNTER → 2025-01-04 08:44 | Outpatient (REF) | payer OTHER, SELFPAY ==
[2025-01-04 09:04] LABS: Glucose 141 mg/dl (70-99)
== END ==
LOC: PET 08:44
PROVIDERS: ATTENDING PHYSICIAN Internal Medicine Hematology & Oncology
DX: C50.811 Malignant neoplasm of overlapping sites of right female breast (principal); C79.89 Secondary malignant neoplasm of other specified sites; G89.3 Neoplasm related pain (acute) (chronic); D50.9 Iron deficiency anemia, unspecified
CPT/HCPCS: 36415; 80053; 82947; 85025